=== PATIENT | female | born 1955 | race Caucasian/White ===

== ENCOUNTER 2018-06-06 19:48 | Emergency (ER) | payer OTHER ==
[~2018-06-06] VITALS: Ht 157.5 cm; Wt 77.1 kg
[2018-06-06 19:58] VITALS: BP_SYST 171
[2018-06-06] MEDS ORDERED: DIPH-TET-PERTUS Vaccine 0.5 ML VIAL (ADACEL) I.M. ONE (20:00)
[2018-06-06] MEDS ORDERED: HYDROcodone/ACETAMIN 7.5-325 MG TAB PO ONE (20:00)
[2018-06-06] MEDS ORDERED: BACITRACIN 1 GM OINT TP ONE (20:00)
--- NOTE | 2018-06-06 20:00 | NUR ---
Pt to ER bed 3 for evaluation. Side rails up.
--- NOTE | 2018-06-06 20:05 | NUR ---
Pt is awake and alert. Pt states "I was trying to do a headstand on a diving board and I fell down." Pain stated 08/18. Bilateral scrapes noted to legs. Denies any other symptoms. No signs of SOB or acute distress noted. Will continue to monitor.
--- NOTE | 2018-06-06 20:07 | NUR ---
KARIN DAVID AT BEDSIDE EXAMINING PATIENT.
[2018-06-06 21:26] VITALS: BP_SYST 164
--- NOTE | 2018-06-06 21:26 | NUR ---
Patient given written and verbal discharge instructions and verbalizes understanding. ER IP TECHNOLOGY TRANSACTIONS ATTORNEY JOANN discussed with patient the results and treatment provided. Patient in stable condition. ID arm band removed. Rx of Bacitracin Zinc, Tramadol, and Naproxen given. Patient educated on pain management and to follow up with PMD. Pain Scale 2/10. Opportunity for questions provided and answered. Medication side effect fact sheet provided.
== END 2018-06-06 21:26 | disposition home or self-care (01) ==
LOC: SED 19:48
DX: S93.602A Unspecified sprain of left foot, initial encounter (principal); S80.811A Abrasion, right lower leg, initial encounter; S70.312A Abrasion, left thigh, initial encounter; F41.9 Anxiety disorder, unspecified; J44.9 Chronic obstructive pulmonary disease, unspecified; R03.0 Elevated blood-pressure reading, without diagnosis of hypertension; Z87.891 Personal history of nicotine dependence; Z88.6 Allergy status to analgesic agent; W19.XXXA Unspecified fall, initial encounter; Y93.89 Activity, other specified; Y92.89 Other specified places as the place of occurrence of the external cause; Y99.8 Other external cause status
CPT/HCPCS: 90715; 99284

== ENCOUNTER 2019-07-07 | Emergency (ER) | payer OTHER ==
[~2019-07-07] VITALS: Ht 157.5 cm; Wt 77.1 kg
[2019-07-07 00:05] VITALS: BP_SYST 166
--- NOTE | 2019-07-07 00:05 | NUR ---
Patient triaged and placed in waiting room. VSS and patient appears in no acute distress at this time. Accompanied by FAMILY, awaiting available bed, and MD notified of need for MSE.
--- NOTE | 2019-07-07 00:52 | NUR ---
Patient to ER bed 4 to gown for evaluation. Side rails up. Report given to JOSUE PORTILLO(REGISTRY).
--- NOTE | 2019-07-07 01:35 | NUR ---
ER at bedside examining patient.
[2019-07-07] MEDS: DIPH-TET-PERTUS Vaccine 0.5 ML VIAL (ADACEL) I.M. ONE (01:58)
[2019-07-07] MEDS: ACETAMINOPHEN 500 MG TABLET PO ONE (02:00)
[2019-07-07] MEDS: ACETAMINOPHEN/CODEINE 300 MG-30 MG TABLET PO ONE (02:02)
--- NOTE | 2019-07-07 02:31 | NUR ---
Patient given written and verbal discharge instructions and verbalizes understanding. ER MD discussed with patient the results and treatment provided. Patient in stable condition. ID arm band removed. Rx of augmentin and tylenol w/ codeine given. Patient educated on pain management and to follow up with PMD. Pain Scale 4/10. Opportunity for questions provided and answered. Medication side effect fact sheet provided.
[2019-07-07 02:32] VITALS: BP_SYST 155
== END 2019-07-07 02:32 | disposition home or self-care (01) ==
LOC: SED
DX: S80.812A Abrasion, left lower leg, initial encounter (principal); F41.9 Anxiety disorder, unspecified; Z88.6 Allergy status to analgesic agent; W55.03XA Scratched by cat, initial encounter; Y93.89 Activity, other specified; Y92.098 Other place in other non-institutional residence as the place of occurrence of the external cause; Y99.8 Other external cause status
CPT/HCPCS: 90715; 99283

== ENCOUNTER 2021-11-09 06:40 | Emergency (ER) | payer OTHER, SELFPAY ==
[~2021-11-09] VITALS: Ht 162.6 cm; Wt 82.6 kg
[2021-11-09 07:05] VITALS: BP_SYST 151
--- NOTE | 2021-11-09 07:05 | NUR ---
PT TRIAGED AND THEN SENT TO TENT. REPORT GIVEN TO RANGEL
--- NOTE | 2021-11-09 07:37 | NUR ---
DR ANTONY OUT TO TENT FOR EVALUATION
--- NOTE | 2021-11-09 07:44 | NUR ---
ER at bedside examining patient.
--- NOTE | 2021-11-09 08:10 | NUR ---
pt. here c/o body aches, fever, and cough for 1 week, covid swab obtained as ordered, awaitting chest xray
--- NOTE | 2021-11-09 08:21 | NUR ---
portable chest xray being done
[2021-11-09] MEDS ORDERED: ONDANSETRON 4 MG ODT TAB PO ONE (08:45)
[2021-11-09] MEDS ORDERED: MORPHINE 4 MG INJ. 4 MG/ML VIAL IM ONE (08:45)
[2021-11-09 09:10] VITALS: BP_SYST 160
--- NOTE | 2021-11-09 09:10 | NUR ---
Patient given written and verbal discharge instructions and verbalizes understanding. ER Dr. Fan discussed with patient the results and treatment provided. Patient in stable condition. ID arm band removed. Patient educated on pain management and to follow up with PMD. Pain Scale 7. Opportunity for questions provided and answered.
== END 2021-11-09 09:10 | disposition home or self-care (01) ==
LOC: SED 06:40
DX: U07.1 COVID-19 (principal); J44.1 Chronic obstructive pulmonary disease with (acute) exacerbation; F41.9 Anxiety disorder, unspecified; Z88.6 Allergy status to analgesic agent
CPT/HCPCS: 71045; 87426; 96372; 99284; J2270; Q0162; 36415

== ENCOUNTER 2021-11-14 16:23 | Inpatient (IN) | payer OTHER, SELFPAY ==
[~2021-11-14] VITALS: Ht 162.6 cm; Wt 82.6 kg
[2021-11-14 16:25] VITALS: BP_SYST 141
--- NOTE | 2021-11-14 16:25 | NUR ---
PT BROUGHT IN BY [facility] AND CARE, TRIAGED AND WAITING IN AMBULANCE BAY FOR AVAILABLE ER BED
[2021-11-14] MEDS ORDERED: NACL 0.9% 1,000 ML IV ONE (17:15)
[2021-11-14] MEDS ORDERED: LevALBUTEROL HCL 1.25 MG/0.5 ML *CONC.* VIAL.NEB (XOPENEX CONC.) INH ONE (17:15)
--- NOTE | 2021-11-14 17:39 | NUR ---
PT PLACED IN ROOM 6, BIBA FOR SOB. PT TACHYPNIC AT 31 BREATHS /MIN... ON NRB @90%, USING ACCESORY MUSCLE USE, SITTING UPRIGHT IN BED. RT CALLED. PT ADMITS TO NOT BEING VACCINATED AND TESTING POSITIVE RECENTLY. DENIES ANY CP, JUST DIFFICULTY IN BREATHING. SKIN W/D/I. DENIES ANY FEVERS/CHILLS. COVID- SAFETY PRECAUTIONS IN PLACE.
--- NOTE | 2021-11-14 17:41 | NUR ---
DR YOON AT BEDSIDE FOR EXAM
--- NOTE | 2021-11-14 17:49 | NUR ---
RT AT BEDSIDE FOR TREATMENT AND ABGs
--- NOTE | 2021-11-14 18:02 | NUR ---
DTR CALLED AND I GAVE STATUS UPDATE, WILLCAL BACK IN 2 HOURS.
--- NOTE | 2021-11-14 18:48 | NUR ---
PT CONTINUES TO BE TACHYPNIC AT 24-30 BREATHS/MIN, TAKING NRB MASK OFF. PT INFORMED AGAIN TO NOT REMOVE NRB. TAKING OFF BLANKET AND FOLLOWING SAFETY PRECAUTIONS. DR GUAJARDO UPDATED.
[2021-11-14 18:49] LABS: BASOPHILS % (AUTO) 0.3 % (0.0-2.0); HEMATOCRIT 36.8 % (36-48); HEMOGLOBIN 12.4 g/dL (12.0-16.0); LYMPHOCYTES # (AUTO) 0.7 K/uL (1.0-5.5); LYMPHOCYTES % (AUTO) 9.5 % (20.5-51.5); MEAN CORPUSCULAR HEMOGLOBIN 28 pg (27-31); MEAN CORPUSCULAR HGB CONC 34 % (32-36); MEAN CORPUSCULAR VOLUME 83 fL (79.0-98.0); MONOCYTES # (AUTO) 0.6 K/uL (0.0-1.0); MONOCYTES % (AUTO) 8.1 % (1.7-9.3); NEUTROPHILS # (AUTO) 6.2 K/uL (1.8-7.7); NEUTROPHILS % (AUTO) 82.1 % (40.0-70.0); PLATELET COUNT (AUTO) 188 K/uL (130-430); RED BLOOD CELL COUNT(AUTO) 4.44 MIL/uL (4.2-6.2); RED CELL DISTRIBUTION WIDTH 16.3 % (9.0-15.0); WHITE BLOOD COUNT (AUTO) 7.6 K/uL (4.8-10.8)
[2021-11-14 18:54] LABS: CALCIUM 8.3 mg/dL (8.4-11.0); CREATININE 0.92 mg/dL (0.55-1.30); POTASSIUM 3.3 mmol/L (3.5-5.1)
[2021-11-14 19:06] LABS: PROTHROMBIN TIME 10.3 SECS (9.5-12.5)
--- NOTE | 2021-11-14 19:10 | NUR ---
Assumed care of patient at change of shift. Introduced self to patient who is currently on face mask 15 l for which pox noted at 84%.-88%. Patient patient noted to be restless and uncomfortabe. labored breathing air hunger noted upon movement. Positioned patient for comfort. placed in semi-becerra's position after linen was changed. Bed to low position sr up, continue to monitor.
--- NOTE | 2021-11-14 19:10 | NUR ---
Assumed care of patient at change of shift. Introduced self to patient, currently on Patient resting quietly. No acute distress noted. Vital signs within normal range.
[2021-11-14 19:14] LABS: ALBUMIN 2.6 g/dL (3.4-4.8); TOTAL BILIRUBIN 0.3 mg/dL (0.0-1.0)
--- NOTE | 2021-11-14 20:30 | NUR ---
patient pox noted to decrease to 79-84%, patient placed on high flow n/c at 40% along w/ face mask for which pox noted to increased to 93%. patient w/ tachypnea. Still restless and uncomfortable. Bed to low position sr up. patient noted at times to remove nrb mask.
[2021-11-14] MEDS ORDERED: ALBUTEROL SULFATE 0.083% 2.5 MG/3 ML VIAL.NEB INH PRN (21:45)
--- NOTE | 2021-11-14 21:50 | NUR ---
Patient w/ increased labored breathing w/ restlessness. MD Richards notified, patient to be transferred to ICU (upgraded) continue to monitor.
[2021-11-14] MEDS ORDERED: ENOXAPARIN SODIUM 30 MG/0.3 ML SYRINGE SUBCUT ONE (22:00)
[2021-11-14] MEDS ORDERED: POTASSIUM CHLORIDE 10 MEQ TAB.PRT.SR PO ONE (22:00)
--- NOTE | 2021-11-14 22:45 | NUR ---
# 20 gauge angiocath placed to right forearm. Use of asceptic technique. Opsite placed over site. Blood return noted. Flushed with 10 cc of normal saline. No evidence of infiltration noted. Patient tolerated well.
[2021-11-14] MEDS ORDERED: cefTRIAXone 2 GM VIAL ONE (22:47)
[2021-11-14] MEDS ORDERED: AZITHROMYCIN 500 MG/VIAL (ZITHROMAX) IV ONE (22:47)
[2021-11-14] MEDS: DEXAMETHASONE SOD PHOSPHATE 10 MG/ML VIAL IVP SCH (22:50)
--- NOTE | 2021-11-14 22:50 | NUR ---
Medicated w/ kcl 30 meq po per MD orders. IVF infusing with no s/s of infiltration at this time. Will cont to monitor will observe for any adverse reaction. bed to low position sr up.
[2021-11-14] MEDS ORDERED: POTASSIUM CHLORIDE 10 MEQ TAB.PRT.SR ONE (23:06)
[2021-11-14] MEDS: AZITHROMYCIN 500 MG in NS 250 ML IV SCH (23:45)
--- NOTE | 2021-11-15 00:30 | NUR ---
# 16 FR Esquivel catheter with use of sterile technique. Immediate return of 300 cc clear yellow urine noted. Bedside drainage bag placed below level of bladder. Pt tolerated procedure. Patient unable to toilet self, noted to have distended bladder.
[2021-11-15] MEDS ORDERED: KETAMINE 30 MG/3 ML SYRINGE 30 MG in NS 100 ML IV ONE (01:00)
[2021-11-15] MEDS ORDERED: KETAMINE 30 MG/3 ML SYRINGE ONE ×2 (01:08→10:40)
--- NOTE | 2021-11-15 01:15 | NUR ---
medicated w/ 30mg of ketamine per MD order to calm patient down 2nd to increased agitation. patient to have bipap placed..
--- NOTE | 2021-11-15 01:43 | NUR ---
bipap placed by RT. patient to be medicated w/ ativan ivp.
[2021-11-15] MEDS ORDERED: LORazepam 2 MG/ML VIAL IVP ONE ×3 (01:45→15:15)
--- NOTE | 2021-11-15 01:57 | NUR ---
bipap I/E: 22/8 fio2 100%, patient medicated w/ ativan 1mg as ordered, will observe for any adverse reaction. Bed to low position sr up. patient still breathing heavily but is tolerating bipap. restless and agitation decreased.
[2021-11-15 02:04] VITALS: BP_SYST 145
--- NOTE | 2021-11-15 03:05 | NUR ---
patient asleep resting comfortably. pox noted at 89-91% on bipap fio2 100%, decreased agitation and restlessness. continue w/ current plan. bed to low position sr up, continue to monitor.
--- NOTE | 2021-11-15 05:03 | NUR ---
Patient resting quietly. No acute distress noted. Vital signs within normal range. no change from previous assessment, pox noted 90-92% on bipap fio2 100. Patient w/ no increased agitation. continue to monitor.
[2021-11-15] MEDS ORDERED: LORazepam 2 MG/ML VIAL ONE ×2 (06:00→15:10)
--- NOTE | 2021-11-15 06:03 | NUR ---
patient noted to get slight agitated and restless, for which pox noted to decrease as low as 72% . medicated w/ 1mg of ativan per MD order. still on bipap w/ fio2 100%. continue to monitor.
--- NOTE | 2021-11-15 07:20 | NUR ---
Report received from Raheem PORTILLO to assume care of patient
--- NOTE | 2021-11-15 07:30 | NUR ---
Made contact with patient. Patient very restless and disoriented. Low saturation noted intermittently with even slightest exertion. Patient not able to give information or even follow simple commands due to hypoxia. This RN to monitor very closely.
--- NOTE | 2021-11-15 07:45 | NUR ---
RT paged to room to assess patient. She is on 100% O2 but continues to be hypoxic. Will continue to monitor closely.
--- NOTE | 2021-11-15 07:50 | NUR ---
RT changed patient's mask to Bipap. SpO2 now 95-96%.
[2021-11-15] MEDS: ENOXAPARIN SODIUM 30 MG/0.3 ML SYRINGE SUBCUT SCH ×2 (09:10→21:46)
--- NOTE | 2021-11-15 09:15 | NUR ---
Medication reconciliation completed with information provided by meds at bedside. Any prior medication reconciliation on file was reviewed and corrected.
[2021-11-15] MEDS ORDERED: CARI350T27 PO (09:26)
[2021-11-15] MEDS ORDERED: OXYC10TA56 PO (09:26)
[2021-11-15] MEDS ORDERED: ESCI20TA PO (09:26)
--- NOTE | 2021-11-15 10:15 | NUR ---
Patient removed Bipap mask. RT paged to room, as patient continues to be hypoxic and tachypneic despite 100% O2. Patient also remains extremely restless.
--- NOTE | 2021-11-15 10:24 | NUR ---
Dr Rojas paged to ER re intubation. Respiratory condition not resolving.
--- NOTE | 2021-11-15 10:30 | NUR ---
Per Crystal, "the ER doctor has to handle" patient care re intubation and sedation. Dr Sotelo made aware.
[2021-11-15] MEDS ORDERED: KETAMINE 30 MG/3 ML SYRINGE IVP ONE (10:45)
--- NOTE | 2021-11-15 11:35 | NUR ---
Patient finally resting in bed; in no acute distress. Patient remains on 100% O2 and SpO2 has improved as patient is now calmer. VSS. Patient continues to await ICU bed. Will continue to monitor.
[2021-11-15] MEDS: HALOPERIDOL LACTATE 5 MG/ML VIAL IVP PRN (12:22)
--- NOTE | 2021-11-15 13:18 | NUR ---
Despite PRN sedation medication, patient continues to be very restless in bed and tachypneic on 100% O2. Dr Sotelo aware. No new orders received.
--- NOTE | 2021-11-15 14:41 | NUR ---
Patient remains hypoxic on 100% O2. O2 sats 87-90%. Patient remains tachypneic and restless at moments. Dr Sotelo aware. No new orders received.
[2021-11-15] MEDS ORDERED: DEXMEDETOMIDINE HCL 200 MCG in NS 48 ML IV PRN (15:15)
[2021-11-15] MEDS ORDERED: PROPOFOL DRIP 100 ML IV ONE (15:39)
[2021-11-15 15:40] VITALS: BP_SYST 153
--- NOTE | 2021-11-15 15:40 | NUR ---
Patient intubated per Dr Geiger. RT at bedside. 24 cm at lip
--- NOTE | 2021-11-15 16:10 | NUR ---
CXR being done at bedside
--- NOTE | 2021-11-15 16:10 | NUR ---
CONSULTS: CONSULTS CALLED FOR DR GRUBER [phone] PAGER:[phone] CONSULTS CALLED FOR DR CROSS [phone] SPOKE WITH BAILEE
--- NOTE | 2021-11-15 16:15 | NUR ---
Propofol drip initially started at 5 mcg/kg/min. Increased gradually to 35 mcg/kg/min as patient continued fighting vent. BP stable.
[2021-11-15] MEDS ORDERED: SUCCINYLCHOLINE CHLORIDE 20 MG/ML(QUELICIN) IVP ONE ×2 (16:30→17:26)
[2021-11-15] MEDS ORDERED: ETOMIDATE 20 MG/ 10 ML VIAL (AMIDATE) IVP ONE ×2 (16:30→17:26)
[2021-11-15] MEDS: PROPOFOL DRIP 100 ML IV PRN ×2 (16:39→20:27)
--- NOTE | 2021-11-15 16:49 | NUR ---
Propofol drip increased to 50 mcg/kg/min due to patient continuing to fight vent and attempt to pull ETT. Dr Juanjo peterson.
--- NOTE | 2021-11-15 17:18 | NUR ---
Propofol decreased to 40mcg/kg/min. BP 122/62.
--- NOTE | 2021-11-15 17:30 | NUR ---
RT at bedside to patel MORA
--- NOTE | 2021-11-15 17:55 | NUR ---
Patient resting in bed; in no acute distress. VSS; in oracle erp architect. Patient continues to await extrusion former consult; Dr Rojas has been paged multiple times with no call back received. For now, patient is maintaining on current regimen and will continue to be monitored closely. Pt also continues to await ICU bed.
[2021-11-15] MEDS ORDERED: TOCILIZUMAB 800 MG in NS 100 ML IV ONE (18:00)
--- NOTE | 2021-11-15 18:03 | NUR ---
Spoke with Dr Horton who referred me to Dr Tse, or medical legal investigator, or some other doctor. Will continue to monitor patient closely. Dr Ortiz to bedside to assess pt.
--- NOTE | 2021-11-15 18:34 | NUR ---
Established Dr Tse as point of contact for any further orders needed.
--- NOTE | 2021-11-15 19:12 | NUR ---
Report given to Pat PORTILLO to assume care of patient
--- NOTE | 2021-11-15 19:23 | NUR ---
RECEIVED REPORT FROM MAGO PORTILLO
--- NOTE | 2021-11-15 20:25 | NUR ---
NEW PORPOFAL HUNG. PT RAISING HANDS AND MOVING, APPEARS SOMEWHAT AGITATED, PLACE PROPOFAL TO 4.2 MCG. WILL CONTINUE TO MONITOR
--- NOTE | 2021-11-15 20:45 | NUR ---
PT RESTING, NOT STRUGGLING TO MOVE ARMS OR LEGS IN BED. REMAINS ON BEDSIDE MONITOR AND VENT. WILL CONTINUE TO MONITOR PT
[2021-11-15] MEDS: ASCORBIC ACID 500 MG TABLET PO SCH (21:00)
[2021-11-15] MEDS ORDERED: AZITHROMYCIN 500 MG/VIAL (ZITHROMAX) IV ONE (21:20)
[2021-11-15] MEDS ORDERED: cefTRIAXone 2 GM VIAL ONE (21:20)
[2021-11-15 21:33] LABS: CKMB RELATIVE INDEX 1.5 (0.0-2.9)
[2021-11-15] MEDS ORDERED: DEXAMETHASONE SOD PHOSPHATE 10 MG/ML VIAL ONE (21:54)
[2021-11-15] MEDS: DEXAMETHASONE SOD PHOSPHATE 10 MG/ML VIAL IVP SCH (21:54)
[2021-11-15] MEDS: AZITHROMYCIN 500 MG in NS 250 ML IV SCH (22:31)
--- NOTE | 2021-11-15 22:33 | NUR ---
PT HAS 2 PO MEDS ORDERED, UNABLE TO ADMINISTER DUE TO PT BEING INTUBATED, NO NG TUBE FOR MEDS.
[2021-11-15 23:00] VITALS: BP_SYST 118
[2021-11-16] VITALS (17 sets, daily range): BP systolic 119–159
[2021-11-16] MEDS ORDERED: KETAMINE 30 MG/3 ML SYRINGE ONE (00:22)
--- NOTE | 2021-11-16 00:26 | NUR ---
PT EXTREMELY AGITATED AND ATTEMPTING TO CRAWL OUT OF BED, ER MD AWARE, NEW ORDER RECEIVED AND CARRIED OUT. PT REPOSITIONED FOR COMFORT IN BED. REMAINS ON MONITOR. VENT HAS BEEN BEEPING, RESPIRATORY WAS AT BEDSIDE AND SUCTIONED PT, VENT CONTINUES TO BEEP. CALLED RESPIRATORY TO RECHECK
--- NOTE | 2021-11-16 01:03 | NUR ---
PT IS SLEEPING, REMANS ON BEDSIDE MONITOR. RESPIRATIONS REGULAR EVEN, AND UNLABORED.
[2021-11-16] MEDS: PROPOFOL DRIP 100 ML IV PRN ×4 (01:56→22:22)
--- NOTE | 2021-11-16 02:35 | NUR ---
PT STARTING TO BECOME AGITATED AND MOVING AROUND, ER MD AWARE WAITING FOR NEW ORDERS AT THIS TIME.
[2021-11-16] MEDS ORDERED: MIDAZOLAM HCL 5 MG/5 ML VIAL IVP ONE (02:45)
--- NOTE | 2021-11-16 02:45 | NUR ---
RECEIVED VERSED IVP TO HELP CALM PT, PER ER MD ORDERS
--- NOTE | 2021-11-16 02:55 | NUR ---
PT CONTINUES TO MOVE LEGS AND ARMS, PULLED OUT IV TO RIGHT FOREARM, STILL HAS IV ACESS TO LAC. PROPOFAL CONTINUES, REMAINS ON MONITOR, RECEIVED NEW ORDERS
[2021-11-16] MEDS: CHOLECALCIFEROL (VITAMIN D3) 5,000 UNIT TABLET PO SCH (03:05)
[2021-11-16] MEDS: HALOPERIDOL LACTATE 5 MG/ML VIAL IVP PRN (03:10)
--- NOTE | 2021-11-16 03:10 | NUR ---
MEDICATED WITH HALDOL
[2021-11-16] MEDS ORDERED: MIDAZOLAM HCL 5 MG/5 ML VIAL ONE (03:20)
[2021-11-16] MEDS ORDERED: MIDAZOLAM IN NACL,ISO-OSMOT/PF 100 ML IV ONE (03:31)
[2021-11-16 03:45] LABS: CKMB RELATIVE INDEX 1.5 (0.0-2.9); CREATINE KINASE MB 5.6 ng/mL (0-3.6)
--- NOTE | 2021-11-16 07:16 | NUR ---
report given to marry vance
--- NOTE | 2021-11-16 07:18 | NUR ---
cole vance gave report to marry vance
[2021-11-16 07:24] LABS: BASOPHILS % (AUTO) 0.2 % (0.0-2.0); HEMATOCRIT 35.3 % (36-48); HEMOGLOBIN 11.4 g/dL (12.0-16.0); LYMPHOCYTES # (AUTO) 0.6 K/uL (1.0-5.5); LYMPHOCYTES % (AUTO) 7.2 % (20.5-51.5); MEAN CORPUSCULAR HEMOGLOBIN 28 pg (27-31); MEAN CORPUSCULAR HGB CONC 32 % (32-36); MEAN CORPUSCULAR VOLUME 85 fL (79.0-98.0); MONOCYTES # (AUTO) 0.8 K/uL (0.0-1.0); NEUTROPHILS # (AUTO) 6.6 K/uL (1.8-7.7); NEUTROPHILS % (AUTO) 82.6 % (40.0-70.0); PLATELET COUNT (AUTO) 189 K/uL (130-430); RED BLOOD CELL COUNT(AUTO) 4.14 MIL/uL (4.2-6.2); RED CELL DISTRIBUTION WIDTH 16.2 % (9.0-15.0); WHITE BLOOD COUNT (AUTO) 7.9 K/uL (4.8-10.8)
--- NOTE | 2021-11-16 07:38 | NUR ---
66 years old female intubated dx with covid, vital stable no acute resp distress, resting in gurney iv patent will continue to monitor closely.
[2021-11-16 08:34] LABS: ALBUMIN 2.4 g/dL (3.4-4.8); CALCIUM 8.1 mg/dL (8.4-11.0); CREATININE 0.7 mg/dL (0.55-1.30); POTASSIUM 4.4 mmol/L (3.5-5.1); THYROID STIMULATING HORMONE 0.17 uIu/mL (0.36-3.74); TOTAL BILIRUBIN 0.4 mg/dL (0.0-1.0)
[2021-11-16] MEDS: ASCORBIC ACID 500 MG TABLET PO SCH ×2 (09:00→20:27)
[2021-11-16 10:06] LABS: C-REACTIVE PROTEIN QUANT 5.4 mg/dL (0-0.5)
[2021-11-16] MEDS: ENOXAPARIN SODIUM 30 MG/0.3 ML SYRINGE SUBCUT SCH ×2 (10:35→21:38)
--- NOTE | 2021-11-16 10:50 | NUR ---
patient reassess, no acute resp distress, vital stable will continue to monitor.
--- NOTE | 2021-11-16 11:44 | NUR ---
16 fr SALEM SUMP INSERTED TOLERATED WELL.
[2021-11-16 12:08] LABS: CKMB RELATIVE INDEX 1.5 (0.0-2.9); CREATINE KINASE MB 5.4 ng/mL (0-3.6)
--- NOTE | 2021-11-16 12:49 | NUR ---
PATIENT RESTING NO ACUTE CHANGES WILL CONTINUE TO MONITOR.
--- NOTE | 2021-11-16 13:28 | NUR ---
Patient will be admitted to care of LINDSEY KILGORE. Admitted to unit. Will go to room . Belongings list completed. Complete and up to date summary report printed. SBAR report to be given at bedside with opportunity for questions.
--- NOTE | 2021-11-16 13:38 | NUR ---
VERSED RUNNING AT 2MG/HR WHEN PATIENT RECEIVED FROM ER NURSE,
--- NOTE | 2021-11-16 13:58 | NUR ---
AT 1351 PT HR DROPPED TO 41, ATROPINE PLACED AT BEDSIDE
--- NOTE | 2021-11-16 14:00 | NUR ---
PT CAME FROM ER WITH BILATERAL WRIST RESTRAINTS, PT WILL REACH FOR LINES AND ET TUBE, PT IMPULSIVE, WITH AMS
--- NOTE | 2021-11-16 14:21 | NUR ---
HR DOWN TO 39, VERSED STOPPED, ATROPINE AT BEDSIDE
--- NOTE | 2021-11-16 16:00 | NUR ---
PT HAS BILATERAL WRIST RESTRAINTS, PT WILL REACH FOR LINES AND ET TUBE, PT IMPULSIVE WITH AMS
--- NOTE | 2021-11-16 16:58 | NUR ---
Dietitian Recommendations * Vital AF 1.2 at 45 ml/hr (goal rate), Free Water Flush: 200 ml Q6h via OGT Provides (w/ current propofol rate): 1688 kcal/day, 81 gm protein/day, and 1676 ml free water/day Meets: 98% of estimated caloric needs and 98% of lower end of estimated protein needs * VIT C/VIT D3/zinc per COVID protocol LP, RD Please refer to Nutrition Assessment for details. Addendum: 11/16/21 at [address] Amended: Links added.
--- NOTE | 2021-11-16 18:00 | NUR ---
1800, PT IN BILATERAL WRIST RESTRAINTS, PT WILL REACH FOR ET TUBE AND LINES, PT IMPULSIVE WITH AMS
[2021-11-16] MEDS: AZITHROMYCIN 500 MG in NS 250 ML IV SCH (20:29)
[2021-11-16] MEDS: DEXAMETHASONE SOD PHOSPHATE 10 MG/ML VIAL IVP SCH (21:38)
[2021-11-17] VITALS (28 sets, daily range): BP systolic 114–167
[2021-11-17] MEDS: PROPOFOL DRIP 100 ML IV PRN ×3 (05:08→17:05)
[2021-11-17] MEDS: MIDAZOLAM IN NACL,ISO-OSMOT/PF 100 ML IV PRN ×2 (05:09→21:30)
--- NOTE | 2021-11-17 06:28 | NUR ---
ALL CARES DONE, CHG BATH DONE AND COMPLETE LINEN CHANGED,,REMAINS SEDATED WITH PROPOFOL AT 35 MCG AND VERSED AT 6 MG. NPO NAVARRO JUST ADEQUATE OUPUT.
[2021-11-17 07:05] LABS: BASOPHILS % (AUTO) 0.2 % (0.0-2.0); HEMATOCRIT 32.1 % (36-48); HEMOGLOBIN 10.5 g/dL (12.0-16.0); LYMPHOCYTES # (AUTO) 0.5 K/uL (1.0-5.5); MEAN CORPUSCULAR HEMOGLOBIN 28 pg (27-31); MEAN CORPUSCULAR HGB CONC 33 % (32-36); MEAN CORPUSCULAR VOLUME 85 fL (79.0-98.0); MONOCYTES # (AUTO) 0.6 K/uL (0.0-1.0); MONOCYTES % (AUTO) 10.4 % (1.7-9.3); NEUTROPHILS # (AUTO) 4.7 K/uL (1.8-7.7); NEUTROPHILS % (AUTO) 81.4 % (40.0-70.0); PLATELET COUNT (AUTO) 186 K/uL (130-430); RED BLOOD CELL COUNT(AUTO) 3.77 MIL/uL (4.2-6.2); RED CELL DISTRIBUTION WIDTH 16.5 % (9.0-15.0); WHITE BLOOD COUNT (AUTO) 5.8 K/uL (4.8-10.8)
[2021-11-17 07:26] LABS: ALBUMIN 2.1 g/dL (3.4-4.8); CREATININE 0.62 mg/dL (0.55-1.30); TOTAL BILIRUBIN 0.2 mg/dL (0.0-1.0)
[2021-11-17 08:05] LABS: ERYTHROCYTE SEDIMENTATION RATE 32 MM/HR (0-20)
--- NOTE | 2021-11-17 08:05 | NUR ---
RT NOTES FIO2 to 0.70 per titration order, Dr Payan rounding, changed Rate to 26.
[2021-11-17 09:03] LABS: C-REACTIVE PROTEIN QUANT 1.3 mg/dL (0-0.5)
[2021-11-17] MEDS: ENOXAPARIN SODIUM 30 MG/0.3 ML SYRINGE SUBCUT SCH ×2 (09:19→21:26)
[2021-11-17] MEDS: CHOLECALCIFEROL (VITAMIN D3) 5,000 UNIT TABLET PO SCH (09:20)
[2021-11-17] MEDS: ASCORBIC ACID 500 MG TABLET PO SCH ×2 (09:20→21:25)
[2021-11-17] MEDS ORDERED: THEOPHYLLINE ANHYDROUS 200 MG CAP.ER.24H PO ONE (10:00)
--- NOTE | 2021-11-17 11:48 | NUR ---
RT NOTES FIO2 to 0.60 per titration order. will monitor pt. will notify rn
--- NOTE | 2021-11-17 12:10 | NUR ---
RT NOTES Current sat 94%, tolerating 60% FIO2
[2021-11-17 12:39] LABS: PROTHROMBIN TIME 10.9 SECS (9.5-12.5)
--- NOTE | 2021-11-17 18:49 | NUR ---
pt recieved sedated but following commands/pt has progressed to 60% fio2 from 100, and still saturating well on 60% pt in zero distress/pt may need to be started on accuchecks, blood sugar running high at times//no fever, bart at times but asymptomatic//mw
[2021-11-17] MEDS: AZITHROMYCIN 500 MG in NS 250 ML IV SCH (21:28)
[2021-11-17] MEDS: THEOPHYLLINE ANHYDROUS 200 MG CAP.ER.24H PO SCH (21:30)
[2021-11-17] MEDS: DEXAMETHASONE SOD PHOSPHATE 10 MG/ML VIAL IVP SCH (21:31)
[2021-11-18] VITALS (26 sets, daily range): BP systolic 86–151
[2021-11-18] MEDS: PROPOFOL DRIP 100 ML IV PRN ×4 (00:33→18:38)
[2021-11-18 06:31] LABS: HEMATOCRIT 32.6 % (36-48); HEMOGLOBIN 10.9 g/dL (12.0-16.0); MEAN CORPUSCULAR HEMOGLOBIN 28 pg (27-31); MEAN CORPUSCULAR HGB CONC 34 % (32-36); MEAN CORPUSCULAR VOLUME 84 fL (79.0-98.0); PLATELET COUNT (AUTO) 201 K/uL (130-430); RED BLOOD CELL COUNT(AUTO) 3.89 MIL/uL (4.2-6.2); RED CELL DISTRIBUTION WIDTH 16.1 % (9.0-15.0); WHITE BLOOD COUNT (AUTO) 6.5 K/uL (4.8-10.8)
[2021-11-18 06:40] LABS: ALBUMIN 2.1 g/dL (3.4-4.8); C-REACTIVE PROTEIN QUANT 0.3 mg/dL (0-0.5); CALCIUM 7.9 mg/dL (8.4-11.0); CREATININE 0.8 mg/dL (0.55-1.30); TOTAL BILIRUBIN 0.3 mg/dL (0.0-1.0)
--- NOTE | 2021-11-18 07:04 | NUR ---
ALL CARES DONE REMAINS ON VENT AT 70% HAD DESATURATION AT 0300 TO 89% INCREASED SEDATION RR-41 BP STABLE AFEBRILE. DIPRIVAN AT 40 MCG AND VERSED AT 8MG. TOLERTING TUBE FEEDING.
--- NOTE | 2021-11-18 07:20 | NUR ---
INITIAL SHIFT REPORT RECEIVED FROM NIGHT RN FOR CONTINUATION OF CARE
[2021-11-18 08:08] LABS: ERYTHROCYTE SEDIMENTATION RATE 21 MM/HR (0-20)
[2021-11-18] MEDS: CHOLECALCIFEROL (VITAMIN D3) 5,000 UNIT TABLET PO SCH (08:40)
[2021-11-18] MEDS: ASCORBIC ACID 500 MG TABLET PO SCH ×2 (08:40→21:59)
[2021-11-18] MEDS: MIDAZOLAM IN NACL,ISO-OSMOT/PF 100 ML IV PRN (08:48)
[2021-11-18] MEDS: THEOPHYLLINE ANHYDROUS 200 MG CAP.ER.24H PO SCH ×2 (08:51→21:59)
[2021-11-18] MEDS ORDERED: NALOXONE HCL 0.4 MG/ML AMP (NARCAN) IVP PRN (09:00)
[2021-11-18] MEDS ORDERED: ENOXAPARIN SODIUM 30 MG/0.3 ML SYRINGE SUBCUT ONE (09:00)
[2021-11-18] MEDS ORDERED: FUROSEMIDE 20 MG/2 ML VIAL IVP ONE (09:00)
[2021-11-18 10:37] LABS: BAND % (MANUAL) 6 % (0-6); BASOPHILS % (MANUAL) 0 % (0-2); EOSINOPHILS % (MANUAL) 0 % (0-7); LYMPHOCYTES % (MANUAL) 4 % (20-46); METAMYELOCYTES % 4 % (0-0); MONOCYTES % (MANUAL) 8 % (0-11); MYELOCYTES % 4 % (0-0)
[2021-11-18] MEDS: MORPHINE SULFATE IN 0.9 % NACL 100 ML IV PRN (11:44)
--- NOTE | 2021-11-18 15:40 | NUR ---
RN NOTES SPOKE TO DR. THOMAS RE: LOW BP, WITH ORDERS CARRIED OUT.
[2021-11-18] MEDS ORDERED: *HEPARIN PER PHARMACY XX ONE (18:00)
--- NOTE | 2021-11-18 18:34 | NUR ---
UPDATED DISCONTINUED LOVENOX 40 MG PER MD CHAPIN (ID SPECIALIST) & DOCTOR (DARI) WILL ADD HEPARIN DUE TO ELEVATE D DIMER (PER MD CHAPIN REQUESTED)
--- NOTE | 2021-11-18 19:31 | NUR ---
NURSING CARES ALL CARES RENDERED & PROVIDED TO PT WELL REPOSITIONS. PT TOLERATED WELL
--- NOTE | 2021-11-18 19:32 | NUR ---
ENDORSEMENT END OF SHIFT REPORT GIVEN TO NIGHT RN FOR CONTINUATION OF CARES
[2021-11-18] MEDS ORDERED: HEPARIN SODIUM,PORCINE 2000 UNITS/0.4 ML BOLUS IVP PRN (20:00)
[2021-11-18] MEDS ORDERED: ENOXAPARIN SODIUM 30 MG/0.3 ML SYRINGE SUBCUT SCH (21:00)
[2021-11-18] MEDS ORDERED: HEPARIN 25,000 UNITS/D5W 250ML 250 ML IV ONE (21:01)
[2021-11-18] MEDS ORDERED: HEPARIN SODIUM, PORCINE 10,000 UNITS/ 10 ML VIAL ONE (21:15)
--- NOTE | 2021-11-18 21:30 | NUR ---
HEPARIN GTT STARTED AT 1200 UNITS BOLUS IV 3000 UNITS GIVEN FOR PTT 24.3 FOR REPEAT PTT AT 0400 AWAITING RESULTS.
[2021-11-18] MEDS: AZITHROMYCIN 500 MG in NS 250 ML IV SCH (22:00)
[2021-11-18] MEDS: DEXAMETHASONE SOD PHOSPHATE 10 MG/ML VIAL IVP SCH (22:01)
[2021-11-18] MEDS: HEPARIN 25,000 UNITS in 250 ML PREMIX IV PRN (22:02)
[2021-11-18] MEDS: HEPARIN SODIUM,PORCINE 3000 UNITS/0.6 ML BOLUS IVP PRN (22:03)
[2021-11-19] VITALS (27 sets, daily range): BP systolic 84–143
--- NOTE | 2021-11-19 02:30 | NUR ---
BED BATH DONE, LINEN CHANGED, HAD BM X1 , RASS-2 AWAKEN SO QUICK AND TRYING TO GET UP AND GETTING RESTLES AND TACHYPNEIC SEDATION INCREASE AND INCREASE FIO2-70%
[2021-11-19] MEDS: PROPOFOL DRIP 100 ML IV PRN ×4 (04:34→21:27)
--- NOTE | 2021-11-19 05:00 | NUR ---
HAD ANOTHER EPISODE OF TACHYPNIA AND DESATURATION AT DIRECTOR SANITATION [employer]UREAU VERSED GTT RE STARTED VSS, AFEBRILE SATS CAME BACK UP TO 93%. REMAINS ON SAME VENT SETTINGS.
[2021-11-19 05:57] LABS: ALANINE AMINOTRANSFERASE 29 U/L (12-78); ALBUMIN 2.2 g/dL (3.4-4.8); ANION GAP 10 (5-15); ASPARTATE AMINOTRANSFERASE 56 U/L (10-37); C-REACTIVE PROTEIN QUANT < 0.2 mg/dL (0-0.5); CALCIUM 7.8 mg/dL (8.4-11.0); CHLORIDE 109 mmol/L (98-107); CREATININE 0.71 mg/dL (0.55-1.30); GLUCOSE 340 mg/dL (70-99); SODIUM SERUM 142 mmol/L (136-145); TOTAL BILIRUBIN 0.3 mg/dL (0.0-1.0); UREA NITROGEN, BLOOD 31 mg/dL (8-21)
[2021-11-19 06:55] LABS: GFR AFRICAN AMERICAN 105 mL/min (>90); POTASSIUM 5.2 mmol/L (3.5-5.1)
--- NOTE | 2021-11-19 06:59 | NUR ---
0630 PTT-58.6 ,HEPARIN DOSE NO CHANGES REMAINS ON 1200 UNITS.
--- NOTE | 2021-11-19 07:07 | NUR ---
INITIAL SHIFT REPORT RECEIVED FROM NIGHT RN FOR CONTINUATION OF CARE
[2021-11-19] MEDS ORDERED: SODIUM POLYSTYRENE SULFONATE 15 GM/60 ML UDBTL PO ONE (08:00)
[2021-11-19] MEDS: CHOLECALCIFEROL (VITAMIN D3) 5,000 UNIT TABLET PO SCH (09:23)
[2021-11-19] MEDS: ASCORBIC ACID 500 MG TABLET PO SCH ×2 (09:24→21:25)
[2021-11-19] MEDS: FUROSEMIDE 20 MG/2 ML VIAL IVP SCH (09:24)
[2021-11-19] MEDS: THEOPHYLLINE ANHYDROUS 200 MG CAP.ER.24H PO SCH ×2 (09:25→21:25)
[2021-11-19] MEDS: DOCUSATE SODIUM 100 MG/10 ML UDC PO SCH (09:29)
--- NOTE | 2021-11-19 10:45 | NUR ---
LAB CALLED LAB TO REMIND THAT PT'S PTT NEED TO BE DONE & WAS DUE AT 10 AM. LAB SAID THAT THEY ARE BEHIND
[2021-11-19] MEDS: MORPHINE SULFATE IN 0.9 % NACL 100 ML IV PRN (11:16)
--- NOTE | 2021-11-19 11:25 | NUR ---
Nutrition F/U Admitting Diagnosis: COVID, pneumonia Medical History Comment: COVID-19 per physician notes 11/19 MD notes: Sepsis, COPD Pt also found w/ sepsis per physician notes SARS-CoV-2 Ag (Rapid) Positive 11/14 Subjective Information: Pt remains in ICU, sedated on vent. RD s/w pt's primary RN who reported that EN was off for medication administration this am and d/t GRV >100ml. RD discussed policy re: GRV and that pt's BG have been trending up and pt needs insulin coverage. Per EMR review, BM 11/19 x2. Pt was intubated on 11/15, CXR on 11/18 showed no changes in bilateral infiltrates. Fred scale: 14, no skin issues. Current EN provides adequate nutrition and remains appropriate. Current Diet Order/Nutrition Support: Vital AF 1.2 at 45ml/hr (goal); FWF 200ml Q6H via OGT x 3 days Pertinent Medications: propofol at 9.906 ml/hr (261 kcal/day), decadron, Lasix, Haldol, Heparin, Remdesivir, VIT C, Zinc, VIT C. Pertinent Labs 11/19 Na 142, K 5.2H, BG 340 H, BUN 31H, Cre 0.71 Height (Feet) 5 feet Height (Inches) 4.00 inches Weight (Pounds) 182 pounds Weight (Calculated Kilograms) 82.319493 kilograms Patient Weight 82.554 kg Body Mass Index 31.24 kg/m2 %IBW 152 [place]/Adjusted Body Weight 120#/55 kg. 136#/62 kg Weight Status Obese Estimated Energy Expenditure (kcals/day) 1719 (PSU 2009 d/t criticall illness on vent; Ve: 12.1; Tmax: 36.2'C) Estimated Protein Required (g/day) 83-110 (1.5-2 gm/kg IBW d/t obesity, sepsis) Estimated Fluid Required (l/day) 1.7 (1 ml/kcal/day for maintenance) Problem/Etiology/Signs/Symptoms Increased nutritional needs R/T metabolic demands AEB estimated nutritional requirements for sepsis. (*ongoing) Expected Outcomes/Goals - Monitor EN tolerance and intake w/ goal of pt meeting >80% of estimated nutritional needs, labs trending WNL, normal GI function, and skin integrity/wt maintenance Dietitian Recommendations * Vital AF 1.2 at 45 ml/hr (goal rate), Free Water Flush: 200 ml Q6h via OGT Provides (w/ current propofol rate): 1557 kcal/day, 81 gm protein/day, and 1676 ml free water/day Meets: 90% of estimated caloric needs and 98% of lower end of estimated protein needs * VIT C/VIT D3/zinc per COVID protocol * Recommend: add insulin coverage. Follow Up High Risk: F/U in 2-3days
--- NOTE | 2021-11-19 11:32 | NUR ---
Dietitian Recommendations * Vital AF 1.2 at 45 ml/hr (goal rate), Free Water Flush: 200 ml Q6h via OGT Provides (w/ current propofol rate): 1557 kcal/day, 81 gm protein/day, and 1676 ml free water/day Meets: 90% of estimated caloric needs and 98% of lower end of estimated protein needs * VIT C/VIT D3/zinc per COVID protocol * Recommend: add insulin coverage. Please see Nutrition F/U note BERENICE, HIPOLITO
[2021-11-19] MEDS: HEPARIN 25,000 UNITS in 250 ML PREMIX IV PRN (17:18)
--- NOTE | 2021-11-19 19:00 | NUR ---
RECD REPORT FROM RADHA RN, NOT FULLY SEDATED PATIENT IS AWAKE AND TACHYPNEIC ON VERSED 2 MG, MORPHINE 2 MG, AND PROPOFOL AT 10 MCG/KG,SATS-77% BP BORDERLINE, HEPARIN GTT INFUSING ON A LINE OUT OF VEIN ALREADY HEPARIN LEAKING ON SITE. PATIENT LYING ON POOP.
--- NOTE | 2021-11-19 19:49 | NUR ---
ENDORSEMENT END OF SHIFT REPORT GIVEN TO NIGHT RN FOR CONTINUATION OF CARES
--- NOTE | 2021-11-19 20:30 | NUR ---
INSERTE PIV LINE AT LT FA G20 HEPARIN GTT INFUSING SAME RATE AWAITING FOR APTT DRAWN
[2021-11-19] MEDS: SENNA 8.8 MG/5 ML UDC NG SCH (21:00)
[2021-11-19] MEDS: DEXAMETHASONE SOD PHOSPHATE 10 MG/ML VIAL IVP SCH (21:26)
[2021-11-19] MEDS: NOREPINEPHRINE BITARTRATE 4 MG in D5W 246 ML IV PRN (21:29)
--- NOTE | 2021-11-19 22:24 | NUR ---
2130 PTT-56 HEPARIN GTT INFUSING AT 1100 UNITS. NO CHANGED CONT APTT DAILY PER PROTOCOL.
[2021-11-20] VITALS (30 sets, daily range): BP systolic 84–153
[2021-11-20] MEDS: INSULIN LISPRO SLIDING SCALE 100 UNITS/ML VIAL (humaLOG) SUBCUT PRN ×3 (00:24→13:09)
[2021-11-20] MEDS: PROPOFOL DRIP 100 ML IV PRN ×5 (03:34→22:56)
[2021-11-20] MEDS: MIDAZOLAM IN NACL,ISO-OSMOT/PF 100 ML IV PRN (03:36)
--- NOTE | 2021-11-20 07:40 | NUR ---
RT NOTES FIO2 to 0.70 per titration order, pt gets easily agitated. Will cont. to monitor pt.
[2021-11-20 07:50] LABS: ALBUMIN 2.1 g/dL (3.4-4.8); CALCIUM 7.6 mg/dL (8.4-11.0); CREATININE 0.65 mg/dL (0.55-1.30); POTASSIUM 3.6 mmol/L (3.5-5.1); TOTAL BILIRUBIN 0.1 mg/dL (0.0-1.0)
--- NOTE | 2021-11-20 08:30 | NUR ---
RT NOTES PEEP was changed to [address] Payan
[2021-11-20] MEDS: DOCUSATE SODIUM 100 MG/10 ML UDC PO SCH (08:37)
[2021-11-20] MEDS: FUROSEMIDE 20 MG/2 ML VIAL IVP SCH (08:38)
[2021-11-20] MEDS: CHOLECALCIFEROL (VITAMIN D3) 5,000 UNIT TABLET PO SCH (08:38)
[2021-11-20] MEDS: ASCORBIC ACID 500 MG TABLET PO SCH ×2 (08:38→21:39)
[2021-11-20] MEDS: MORPHINE SULFATE IN 0.9 % NACL 100 ML IV PRN ×2 (09:12→23:44)
--- NOTE | 2021-11-20 10:12 | NUR ---
STOPPED VERSED DRIP, WILL CONTINUE OTHERS AND INCREASED DIPRIVAN TO 35MCGS//PT WAKES UP, HIGH TOLERANCE, FOLLOWS WHEN AWAKE/FIO2 REDUCED FROM 80% TO 70%, PT PEEP INCREASED FROM 10 TO 12/PT RTOLERATING AT THIS TIME//MW
[2021-11-20] MEDS: THEOPHYLLINE ANHYDROUS 200 MG CAP.ER.24H PO SCH ×3 (12:00→23:09)
[2021-11-20] MEDS: MICAFUNGIN SODIUM 100 MG in NS 100 ML IV SCH (14:13)
--- NOTE | 2021-11-20 14:30 | NUR ---
pt has moments where she wakes up raising her hands and moving out of bed, pt desaturates at that point and is difficult to sedate/pt had such an episode earlier but is now sedated once again and saturating well, thiough i had to go up on the fio2 from 70 % to 80/hr remains bart at times but bp is stable though i had to go up on the levophed from .03 to .06 mics//mw
--- NOTE | 2021-11-20 15:45 | NUR ---
RT NOTES Attempted to titrate FIO2 TO 0.70, pt desaturated to 90-91%.
[2021-11-20] MEDS: HEPARIN 25,000 UNITS in 250 ML PREMIX IV PRN (19:43)
[2021-11-20] MEDS: DEXAMETHASONE SOD PHOSPHATE 10 MG/ML VIAL IVP SCH (21:39)
[2021-11-20] MEDS: SENNA 8.8 MG/5 ML UDC NG SCH (21:41)
[2021-11-21] VITALS (26 sets, daily range): BP systolic 95–146
[2021-11-21] MEDS: MIDAZOLAM IN NACL,ISO-OSMOT/PF 100 ML IV PRN (03:33)
[2021-11-21] MEDS: PROPOFOL DRIP 100 ML IV PRN ×4 (04:08→18:24)
[2021-11-21] MEDS: THEOPHYLLINE ANHYDROUS 200 MG CAP.ER.24H PO SCH ×3 (06:28→17:10)
[2021-11-21] MEDS: INSULIN LISPRO SLIDING SCALE 100 UNITS/ML VIAL (humaLOG) SUBCUT PRN ×3 (06:39→17:27)
--- NOTE | 2021-11-21 07:15 | NUR ---
Opening notes Received report from endorsing rubberizing mechanic RN for continuity of care. Patient is lying in bed with an IVF of NS at 2 mL/hr, norepinephrine at 0.03 mcg/kg/min, heparin at 1100 mL/hr, diprivan at 40 mcg/kg/min, versed at 5 mL/hr, and [id number] at 8 mL/hr. AC 26, tidal volume 450, FIO2 80%, and peep of 12. Patient is on tube feeding vital AF 1.2 at 20 mL/hr. Esquivel catheter in place, draining to gravity clark in color [address] Bed locked in lowest position. Fall and safety precaution in place.
--- NOTE | 2021-11-21 07:38 | NUR ---
DR. Payan at bedside assessing the patient.
--- NOTE | 2021-11-21 07:45 | NUR ---
Dr. Ortiz at bedside assessing the patient.
[2021-11-21 07:48] LABS: BASOPHILS % (AUTO) 0.3 % (0.0-2.0); EOSINOPHILS # (AUTO) 0.2 K/uL (0.0-0.4); EOSINOPHILS % (AUTO) 1.3 % (0.0-4.0); HEMOGLOBIN 10.9 g/dL (12.0-16.0); LYMPHOCYTES # (AUTO) 0.4 K/uL (1.0-5.5); LYMPHOCYTES % (AUTO) 2.9 % (20.5-51.5); MEAN CORPUSCULAR HEMOGLOBIN 28 pg (27-31); MEAN CORPUSCULAR HGB CONC 32 % (32-36); MEAN CORPUSCULAR VOLUME 86 fL (79.0-98.0); MONOCYTES # (AUTO) 0.3 K/uL (0.0-1.0); MONOCYTES % (AUTO) 2.1 % (1.7-9.3); NEUTROPHILS # (AUTO) 13.7 K/uL (1.8-7.7); NEUTROPHILS % (AUTO) 93.4 % (40.0-70.0); PLATELET COUNT (AUTO) 172 K/uL (130-430); RED BLOOD CELL COUNT(AUTO) 3.97 MIL/uL (4.2-6.2); WHITE BLOOD COUNT (AUTO) 14.6 K/uL (4.8-10.8)
--- NOTE | 2021-11-21 07:55 | NUR ---
Patient's on AC 26, tidal volume 450, FIO2 at 70%, and peep of 12. Patient's vital signs heart rate 46, blood pressure 94/46, respiration 26, SPO2 93%.
--- NOTE | 2021-11-21 07:55 | NUR ---
RT NOTES FIO2 to 0.70. Will monitor pt. RN aware. @5857 sat 93%
[2021-11-21] MEDS: ASCORBIC ACID 500 MG TABLET PO SCH ×2 (08:44→22:39)
[2021-11-21] MEDS: FUROSEMIDE 20 MG/2 ML VIAL IVP SCH (08:44)
[2021-11-21] MEDS: DOCUSATE SODIUM 100 MG/10 ML UDC PO SCH (08:45)
[2021-11-21] MEDS: CHOLECALCIFEROL (VITAMIN D3) 5,000 UNIT TABLET PO SCH (08:45)
[2021-11-21] MEDS: DOPamine PREMIX 250 ML IV PRN (09:43)
--- NOTE | 2021-11-21 10:30 | NUR ---
RT NOTES Due to low sat, FIO2 TO 0.80 PEEP to 14, improvement noted.
--- NOTE | 2021-11-21 10:30 | NUR ---
Patient's Vent AC 26, FIO2 @80%, Peep 14, tidal volume 450. Patient's vital signs heart rate 68, respirations 26, SPO2 94%, and blood pressure 133/72.
--- NOTE | 2021-11-21 11:05 | NUR ---
Patient's family (Екатерина) called if she can talk to the doctor.
[2021-11-21] MEDS: MORPHINE SULFATE IN 0.9 % NACL 100 ML IV PRN (11:21)
[2021-11-21] MEDS: MICAFUNGIN SODIUM 100 MG in NS 100 ML IV SCH (12:57)
[2021-11-21] MEDS: PIPERACILLIN/TAZO 4.5GM/DEX-IS 100 ML IV SCH ×2 (14:52→22:40)
[2021-11-21] MEDS: HEPARIN 25,000 UNITS in 250 ML PREMIX IV PRN (18:30)
--- NOTE | 2021-11-21 22:00 | NUR ---
PTT is therapeutic for heparin Drip goal rate @ 52.4; no changes done to rate. Will recheck PTT in am. SR to ST on the scope. On Versed, Morphine and Propofol for sedation & Dopamine Drip to keep SBP>90 mmHg or HR>60bpm. Tolerating Vital AF via OGT w/ no residuals noted. Esquivel catheter patent draining clark urine adequately. Will cont. to monitor.
[2021-11-21] MEDS: SENNA 8.8 MG/5 ML UDC NG SCH (22:39)
[2021-11-21] MEDS: DEXAMETHASONE SOD PHOSPHATE 10 MG/ML VIAL IVP SCH (22:40)
[2021-11-22] VITALS (29 sets, daily range): BP systolic 58–156
[2021-11-22] MEDS: THEOPHYLLINE ANHYDROUS 200 MG CAP.ER.24H PO SCH ×4 (00:43→17:37)
[2021-11-22] MEDS: PROPOFOL DRIP 100 ML IV PRN ×4 (00:58→18:58)
[2021-11-22] MEDS: MORPHINE SULFATE IN 0.9 % NACL 100 ML IV PRN ×2 (01:38→15:34)
[2021-11-22] MEDS: MIDAZOLAM IN NACL,ISO-OSMOT/PF 100 ML IV PRN ×2 (04:15→17:40)
[2021-11-22] MEDS: PIPERACILLIN/TAZO 4.5GM/DEX-IS 100 ML IV SCH ×3 (05:50→21:48)
[2021-11-22] MEDS: INSULIN LISPRO SLIDING SCALE 100 UNITS/ML VIAL (humaLOG) SUBCUT PRN ×3 (06:14→17:51)
--- NOTE | 2021-11-22 06:45 | NUR ---
Pt. remains sedated on Propofol @ 30 mcg, Morphine @ 8 mg & Versed @ 5 mg w/ Dopamine Drip @ 10 mcg to keep SBP>90 or HR>60 bpm. SR on the scope w/ episodes of SB to 40s to 50s and ST in the 100s. IP=180 mg/dl; given 10 units of Humalog; will make MD aware of severe hyperglycemia. Heparin Drip infusing @ 1200 units/hr; for PTT check this am. Remains on vent w/ 80% F1O2 & PEEP 14 to keep O2Sat>92% Will cont. to monitor.
[2021-11-22] MEDS: DOPamine PREMIX 250 ML IV PRN ×3 (07:14→19:07)
--- NOTE | 2021-11-22 07:15 | NUR ---
Opening notes Received report from endorsing setup operator RN for continuity of care. Patient lying on bed with IVF NS @ 2 mL/hr, morphine 8 mL/hr, heparin 1200 units/hr, diprivan 30 mcg/kg/min, versed 5 mg/hr, and dopamine 10 mcg/kg/min. Patient's vital signs temperature 98.0 F, heart rate 69 bpm, respirations 27, SPO2 97%, blood pressure 125/57. Vent AC 26, tidal volume 450, FIO2 80%, and peep 14. Esquivel catheter in place draining to gravity clark in color. Bed is locked and at lowest position, fall and safety precautions is in place.
[2021-11-22 07:24] LABS: BASOPHILS # (AUTO) 0.1 K/uL (0.0-0.2); BASOPHILS % (AUTO) 0.7 % (0.0-2.0); EOSINOPHILS # (AUTO) 0.4 K/uL (0.0-0.4); HEMATOCRIT 37.9 % (36-48); LYMPHOCYTES # (AUTO) 0.6 K/uL (1.0-5.5); MEAN CORPUSCULAR HEMOGLOBIN 27 pg (27-31); MEAN CORPUSCULAR HGB CONC 32 % (32-36); MEAN CORPUSCULAR VOLUME 87 fL (79.0-98.0); MONOCYTES # (AUTO) 0.3 K/uL (0.0-1.0); MONOCYTES % (AUTO) 1.6 % (1.7-9.3); NEUTROPHILS # (AUTO) 18.7 K/uL (1.8-7.7); NEUTROPHILS % (AUTO) 92.7 % (40.0-70.0); PLATELET COUNT (AUTO) 173 K/uL (130-430); RED BLOOD CELL COUNT(AUTO) 4.37 MIL/uL (4.2-6.2); RED CELL DISTRIBUTION WIDTH 17.3 % (9.0-15.0); WHITE BLOOD COUNT (AUTO) 20.2 K/uL (4.8-10.8)
--- NOTE | 2021-11-22 07:43 | NUR ---
Dr. Ortiz at bedside assessing the patient.
[2021-11-22 08:13] LABS: ALBUMIN 2.3 g/dL (3.4-4.8); CALCIUM 8.6 mg/dL (8.4-11.0); CREATININE 0.77 mg/dL (0.55-1.30); POTASSIUM 4.6 mmol/L (3.5-5.1); TOTAL BILIRUBIN 0.4 mg/dL (0.0-1.0)
[2021-11-22] MEDS: ASCORBIC ACID 500 MG TABLET PO SCH ×2 (08:27→21:47)
[2021-11-22] MEDS: CHOLECALCIFEROL (VITAMIN D3) 5,000 UNIT TABLET PO SCH (08:27)
[2021-11-22] MEDS: DOCUSATE SODIUM 100 MG/10 ML UDC PO SCH (08:28)
[2021-11-22] MEDS: FUROSEMIDE 20 MG/2 ML VIAL IVP SCH (08:31)
--- NOTE | 2021-11-22 08:32 | NUR ---
Dr. Payan at bedside assessing the patient.
[2021-11-22] MEDS: HEPARIN SODIUM,PORCINE 3000 UNITS/0.6 ML BOLUS IVP PRN (09:09)
[2021-11-22] MEDS: HEPARIN 25,000 UNITS in 250 ML PREMIX IV PRN (10:37)
[2021-11-22] MEDS: MICAFUNGIN SODIUM 100 MG in NS 100 ML IV SCH (12:29)
--- NOTE | 2021-11-22 13:02 | NUR ---
Patient's blood glucose is 277. Gave 6 units of Humalog subq per sliding scale.
--- NOTE | 2021-11-22 16:00 | NUR ---
Patient's Vent AC 18, TV 500, peep of 8, and FIO2 70%. Patient's vital signs blood pressure 93/49, SPO2 94%, respiration 22, and heart rate 66.
--- NOTE | 2021-11-22 16:49 | NUR ---
Nutrition F/U Admitting Diagnosis: COVID, pneumonia Medical History Comment: COVID-19 per physician notes 11/19 MD notes: Sepsis, COPD Pt also found w/ sepsis per physician notes SARS-CoV-2 Ag (Rapid) Positive 11/14 Subjective Information: RD bedside visit deferred d/t airborne isolation c/w COVID. RD rounded to ICU and spoke w/ pt's primary RN outside of pt's room. Witnessed TF infusing as per physician order -- 5 ml infused as RN had just hung a new formula. He stated pt has been tolerating TF well today w/ GRV of 5 ml. He also reported no BM yet today. Per EMR review, TF Rate: 45 ml 11/22; GRV: 120 ml 11/22; TF Intakes: 360 ml 11/22; abd is soft w/ active bowel sounds; OGT present; last BM x1 11/20; 2+ pitting edema noted to BUE. Current TF prescription continues adequate/appropriate. Current Diet Order/Nutrition Support: Vital AF 1.2 at 45 ml/hr (goal); Free Water Flush: 200 ml Q6H via OGT x6 days Pertinent Medications: propofol at 14.86 ml/hr (392 kcal/day), zinc, VIT D3, VIT C, decadron, senna, SSI, colace, lasix Pertinent Labs: K 143 WNL, K 4.6 WNL, BG 361 H, BUN 28 H, CRE 0.77 WNL Height (Feet) 5 feet Height (Inches) 4.00 inches Weight (Pounds) 182 pounds -- stable since 11/16 Weight (Calculated Kilograms) 82.569853 kilograms Patient Weight 82.554 kg Body Mass Index 31.24 kg/m2 %IBW 152 [place]/Adjusted Body Weight 120#/55 kg. 136#/62 kg Weight Status Obese Estimated Energy Expenditure (kcals/day) 1719 (PSU 2009 d/t criticall illness on vent; Ve: 12.1; Tmax: 36.2'C) Estimated Protein Required (g/day) 83-110 (1.5-2 gm/kg IBW d/t obesity, sepsis) Estimated Fluid Required (l/day) 1.7 (1 ml/kcal/day for maintenance) Problem/Etiology/Signs/Symptoms Increased nutritional needs R/T metabolic demands AEB estimated nutritional requirements for sepsis. (*ongoing) Expected Outcomes/Goals - Monitor EN tolerance and intake w/ goal of pt meeting >80% of estimated nutritional needs, labs trending WNL, normal GI function, and skin integrity/wt maintenance Dietitian Recommendations * Vital AF 1.2 at 45 ml/hr (goal rate), Free Water Flush: 200 ml Q6h via OGT Provides (w/ current propofol rate): 1688 kcal/day, 81 gm protein/day, and 1676 ml free water/day Meets: 98% of estimated caloric needs and 98% of lower end of estimated protein needs Follow Up High Risk: F/U in 2-3 days
--- NOTE | 2021-11-22 16:55 | NUR ---
Dietitian Recommendations * Vital AF 1.2 at 45 ml/hr (goal rate), Free Water Flush: 200 ml Q6h via OGT Provides (w/ current propofol rate): 1688 kcal/day, 81 gm protein/day, and 1676 ml free water/day Meets: 98% of estimated caloric needs and 98% of lower end of estimated protein needs LP, RD Please refer to Nutrition F/U for details.
[2021-11-22] MEDS: DEXAMETHASONE SOD PHOSPHATE 10 MG/ML VIAL IVP SCH (21:47)
[2021-11-22] MEDS: SENNA 8.8 MG/5 ML UDC NG SCH (21:48)
[2021-11-23] VITALS (28 sets, daily range): BP systolic 93–180
[2021-11-23] MEDS: THEOPHYLLINE ANHYDROUS 200 MG CAP.ER.24H PO SCH ×4 (00:16→18:01)
[2021-11-23] MEDS: INSULIN LISPRO SLIDING SCALE 100 UNITS/ML VIAL (humaLOG) SUBCUT PRN ×4 (00:59→18:28)
[2021-11-23] MEDS: PROPOFOL DRIP 100 ML IV PRN ×4 (01:59→21:56)
[2021-11-23] MEDS: DOPamine PREMIX 250 ML IV PRN ×3 (02:06→18:01)
--- NOTE | 2021-11-23 03:00 | NUR ---
PTT=65.9 secs; within goal range; no change to Heparin Drip rate of 1300 units/hr. Will cont. to monitor.
[2021-11-23] MEDS: MORPHINE SULFATE IN 0.9 % NACL 100 ML IV PRN ×2 (04:04→18:30)
[2021-11-23] MEDS: PIPERACILLIN/TAZO 4.5GM/DEX-IS 100 ML IV SCH ×3 (06:05→21:51)
--- NOTE | 2021-11-23 07:00 | NUR ---
received report from endorsing shift supervisor Rn for continuity of care, patient lying on be d with an IVF of Ns @ 2 ml/hr, dopamine @ 10 mcg/kg/min, morphine @ 8 ml/hr, heparin @ 1300 units, diprivan @ 30 mcg/kg/min and versed @ 5 ml/hr.on Ac rate of 26, tidal volume 450 Fio2 @ 60 and PEEp of 14, Tube feeding of Vital AF 1.2 @ 45,turner catheter in place yellow urine in color, SCD in place, bed locked at lowest position, fall and safety precaution in place, will continue to monitor.
--- NOTE | 2021-11-23 07:36 | NUR ---
checked patient blood sugar 356, 10 units of humalog insulin given subcut. per sliding scale.
--- NOTE | 2021-11-23 08:30 | NUR ---
Dr Ortiz is at bedside assessing the patient, verbal report given.
[2021-11-23] MEDS: FUROSEMIDE 20 MG/2 ML VIAL IVP SCH (09:44)
[2021-11-23] MEDS: DOCUSATE SODIUM 100 MG/10 ML UDC PO SCH (09:47)
[2021-11-23] MEDS: CHOLECALCIFEROL (VITAMIN D3) 5,000 UNIT TABLET PO SCH (09:47)
[2021-11-23] MEDS: ASCORBIC ACID 500 MG TABLET PO SCH ×2 (09:49→21:45)
[2021-11-23] MEDS: MICAFUNGIN SODIUM 100 MG in NS 100 ML IV SCH (12:10)
[2021-11-23] MEDS: MIDAZOLAM IN NACL,ISO-OSMOT/PF 100 ML IV PRN (12:18)
[2021-11-23] MEDS: HEPARIN 25,000 UNITS in 250 ML PREMIX IV PRN (12:22)
--- NOTE | 2021-11-23 12:57 | NUR ---
checked patient blood sugar 340. 8 units of humalog insulin given subcut per sliding scale
--- NOTE | 2021-11-23 18:28 | NUR ---
checked patient blood sugar 264, 6 units of humalog insulin given SQ per sliding scale.
[2021-11-23] MEDS: DEXAMETHASONE SOD PHOSPHATE 10 MG/ML VIAL IVP SCH (21:45)
[2021-11-23] MEDS: SENNA 8.8 MG/5 ML UDC NG SCH (21:45)
[2021-11-24] VITALS (26 sets, daily range): BP systolic 73–159
[2021-11-24] MEDS: THEOPHYLLINE ANHYDROUS 200 MG CAP.ER.24H PO SCH ×4 (01:00→17:26)
[2021-11-24] MEDS: INSULIN LISPRO SLIDING SCALE 100 UNITS/ML VIAL (humaLOG) SUBCUT PRN ×4 (01:44→17:46)
[2021-11-24] MEDS: PROPOFOL DRIP 100 ML IV PRN ×4 (02:53→20:41)
[2021-11-24] MEDS: PIPERACILLIN/TAZO 4.5GM/DEX-IS 100 ML IV SCH ×3 (05:26→20:57)
[2021-11-24 06:51] LABS: BASOPHILS # (AUTO) 0.1 K/uL (0.0-0.2); BASOPHILS % (AUTO) 0.5 % (0.0-2.0); EOSINOPHILS % (AUTO) 0.3 % (0.0-4.0); HEMATOCRIT 35.8 % (36-48); HEMOGLOBIN 11.5 g/dL (12.0-16.0); LYMPHOCYTES # (AUTO) 0.7 K/uL (1.0-5.5); LYMPHOCYTES % (AUTO) 6.7 % (20.5-51.5); MEAN CORPUSCULAR HEMOGLOBIN 28 pg (27-31); MEAN CORPUSCULAR HGB CONC 32 % (32-36); MEAN CORPUSCULAR VOLUME 87 fL (79.0-98.0); MONOCYTES # (AUTO) 0.5 K/uL (0.0-1.0); NEUTROPHILS # (AUTO) 9.9 K/uL (1.8-7.7); NEUTROPHILS % (AUTO) 88.5 % (40.0-70.0); PLATELET COUNT (AUTO) 168 K/uL (130-430); RED BLOOD CELL COUNT(AUTO) 4.14 MIL/uL (4.2-6.2); RED CELL DISTRIBUTION WIDTH 17.5 % (9.0-15.0); WHITE BLOOD COUNT (AUTO) 11.2 K/uL (4.8-10.8)
--- NOTE | 2021-11-24 07:20 | NUR ---
received report from endorsing shift leader RN for continuity of care, patient lying on bed with an IVF of NS @ 2 ml/hr, dopamine 10 mcg/kg/min, morphine 8 mg/hr, heparin 1300 units, diprivan 30 mcg/kg/min versed 5 mg/dl. on AC rate of 26, tidal volume 450, Fio2 @ 50 and Peep of 13, on tube feeding vital AF 1.2 @ 45 mls/hr, scd in place, turner catheter in place, draining to gravity yellow urine in color..bed locked at lowest position. fall and safety precaution in place. will continue to monitor.
[2021-11-24 07:24] LABS: ALBUMIN 2.4 g/dL (3.4-4.8); CALCIUM 8.7 mg/dL (8.4-11.0); CREATININE 0.79 mg/dL (0.55-1.30); POTASSIUM 4.5 mmol/L (3.5-5.1); TOTAL BILIRUBIN 0.4 mg/dL (0.0-1.0)
[2021-11-24] MEDS: HEPARIN 25,000 UNITS in 250 ML PREMIX IV PRN (07:44)
--- NOTE | 2021-11-24 07:45 | NUR ---
Dr. Muñiz is at bedside assessing the patient.verbal report given
[2021-11-24] MEDS: MORPHINE SULFATE IN 0.9 % NACL 100 ML IV PRN ×2 (07:46→23:23)
[2021-11-24] MEDS: MIDAZOLAM IN NACL,ISO-OSMOT/PF 100 ML IV PRN (08:01)
--- NOTE | 2021-11-24 08:15 | NUR ---
Dr. Ortiz is at the bedside assessing the patient, verbal reports given.
[2021-11-24] MEDS: DOPamine PREMIX 250 ML IV PRN ×2 (09:22→16:26)
[2021-11-24] MEDS: FUROSEMIDE 20 MG/2 ML VIAL IVP SCH (09:34)
[2021-11-24] MEDS: DOCUSATE SODIUM 100 MG/10 ML UDC PO SCH (09:35)
[2021-11-24] MEDS: CHOLECALCIFEROL (VITAMIN D3) 5,000 UNIT TABLET PO SCH (09:35)
[2021-11-24] MEDS: ASCORBIC ACID 500 MG TABLET PO SCH ×2 (09:35→20:56)
--- NOTE | 2021-11-24 10:11 | NUR ---
[address] prajapati vent changes. titrate fio2 by 5 every 2hrs. At .40 fio2 then titrate peep to 12. Fio2 was titrated to .50 at 0905, rajiv ren to monitor. Addendum: 11/24/21 at 1014 by Agatha Casey RT Amended: Links added.
[2021-11-24] MEDS: MICAFUNGIN SODIUM 100 MG in NS 100 ML IV SCH (12:15)
--- NOTE | 2021-11-24 12:28 | NUR ---
checked patient blood sugar 273, 6 units of humalog insulin given SQ per sliding scale.
--- NOTE | 2021-11-24 15:05 | NUR ---
talked to patient daughter on the phone, answered questions and update patient status.
[2021-11-24] MEDS: ACETAMINOPHEN 325 MG TABLET PO PRN (15:42)
--- NOTE | 2021-11-24 17:46 | NUR ---
checked patient blood sugar 211, 4 units of humalog insulin given SQ per sliding scale.
[2021-11-24] MEDS: SENNA 8.8 MG/5 ML UDC NG SCH (20:55)
[2021-11-24] MEDS: DEXAMETHASONE SOD PHOSPHATE 10 MG/ML VIAL IVP SCH (20:57)
[2021-11-25] VITALS (31 sets, daily range): BP systolic 100–150
[2021-11-25] MEDS: THEOPHYLLINE ANHYDROUS 200 MG CAP.ER.24H PO SCH ×4 (00:36→18:10)
[2021-11-25] MEDS: DOPamine PREMIX 250 ML IV PRN ×3 (00:50→17:10)
[2021-11-25] MEDS: INSULIN LISPRO SLIDING SCALE 100 UNITS/ML VIAL (humaLOG) SUBCUT PRN ×4 (01:15→18:12)
[2021-11-25] MEDS: ACETAMINOPHEN 325 MG TABLET PO PRN (01:17)
[2021-11-25] MEDS: PIPERACILLIN/TAZO 4.5GM/DEX-IS 100 ML IV SCH ×3 (05:28→22:37)
[2021-11-25] MEDS: MIDAZOLAM IN NACL,ISO-OSMOT/PF 100 ML IV PRN (05:32)
[2021-11-25 06:50] LABS: BASOPHILS # (AUTO) 0.1 K/uL (0.0-0.2); BASOPHILS % (AUTO) 0.6 % (0.0-2.0); EOSINOPHILS % (AUTO) 0.2 % (0.0-4.0); HEMATOCRIT 35.6 % (36-48); HEMOGLOBIN 11.4 g/dL (12.0-16.0); LYMPHOCYTES # (AUTO) 0.8 K/uL (1.0-5.5); LYMPHOCYTES % (AUTO) 8.4 % (20.5-51.5); MEAN CORPUSCULAR HEMOGLOBIN 28 pg (27-31); MEAN CORPUSCULAR HGB CONC 32 % (32-36); MEAN CORPUSCULAR VOLUME 87 fL (79.0-98.0); MONOCYTES # (AUTO) 0.6 K/uL (0.0-1.0); MONOCYTES % (AUTO) 6.2 % (1.7-9.3); NEUTROPHILS # (AUTO) 8.3 K/uL (1.8-7.7); NEUTROPHILS % (AUTO) 84.6 % (40.0-70.0); PLATELET COUNT (AUTO) 168 K/uL (130-430); RED BLOOD CELL COUNT(AUTO) 4.09 MIL/uL (4.2-6.2); RED CELL DISTRIBUTION WIDTH 17.9 % (9.0-15.0); WHITE BLOOD COUNT (AUTO) 9.8 K/uL (4.8-10.8)
--- NOTE | 2021-11-25 07:00 | NUR ---
Pt. remains on sedation and Dopamine to keep HR>55 bpm and SBP>90 mmHg w/ VSS. SR to ST on the scope w/ episodes of SB in the 50s. Esquivel Catheter w/ adequate urine but bloody; Heparin Drip turned off and Dr. Lopez made aware w/ no new orders. To follow up stat PTT. Crdiac and resp. monitoring cont. Needs anticipated.
[2021-11-25 07:11] LABS: ALBUMIN 2.5 g/dL (3.4-4.8); CALCIUM 8.9 mg/dL (8.4-11.0); CREATININE 0.8 mg/dL (0.55-1.30); POTASSIUM 4.5 mmol/L (3.5-5.1); TOTAL BILIRUBIN 0.3 mg/dL (0.0-1.0)
--- NOTE | 2021-11-25 07:56 | NUR ---
RECEIVED PT FROM LINDSEY LANDEROS. ASSUMED ALL CARE. PT SEEN BY NARA FELIX.
--- NOTE | 2021-11-25 07:59 | NUR ---
PEEP DECREASEDA TO [address] CROSS.
--- NOTE | 2021-11-25 08:00 | NUR ---
RT NOTES Dr Tse change PEEP to 10. Order is to wean PEEP down to 5 as tolerated.
[2021-11-25] MEDS: ASCORBIC ACID 500 MG TABLET PO SCH ×2 (08:58→21:52)
[2021-11-25] MEDS: DOCUSATE SODIUM 100 MG/10 ML UDC PO SCH (08:58)
[2021-11-25] MEDS: CHOLECALCIFEROL (VITAMIN D3) 5,000 UNIT TABLET PO SCH (08:59)
[2021-11-25] MEDS: FUROSEMIDE 20 MG/2 ML VIAL IVP SCH (08:59)
[2021-11-25] MEDS: PROPOFOL DRIP 100 ML IV SCH ×3 (09:03→23:47)
--- NOTE | 2021-11-25 11:22 | NUR ---
REPORTED FOLLOW UP PTT OF 36.[address] GRUBER, HE STATED IT IS UP TO THE PRIMARY TEAM IF THEY WANT THE HEPARIN RESUMED. AT THIS TIME HE WOULD STILL LIKE TO MONITOR THE URINE, LINDSEY LAST CHARGE MADE AWARE.
--- NOTE | 2021-11-25 11:59 | NUR ---
R/T DECREASED PEEP TO 9 AT THIS TIME B/P 117/58 (81).
--- NOTE | 2021-11-25 11:59 | NUR ---
RT NOTES PEEP to 9. Will monitor pt. Rn aware.
--- NOTE | 2021-11-25 12:00 | NUR ---
PT HAD BLOOD IN URINE, DR. ROSALES STATED HE WOULD LIKE THE HEPARIN DISCONTINUED. SPOKE TO DR. Perez WHO STATED HE WANTED THE HEPARIN HELD AND TO FOLLOW UP WITH DR. ROSALES IF HE WANTS IT CONTINUED.
[2021-11-25] MEDS: MICAFUNGIN SODIUM 100 MG in NS 100 ML IV SCH (13:18)
[2021-11-25] MEDS: MORPHINE SULFATE IN 0.9 % NACL 100 ML IV PRN (13:35)
--- NOTE | 2021-11-25 15:55 | NUR ---
RT NOTES PEEP to 8. Will monitor pt. RN aware
--- NOTE | 2021-11-25 19:59 | NUR ---
CRITICAL ABGS VALUES REPORTED TO DR. CROSS. SHE STATED, PLACE PT BACK ON PRIOR VENT SETTINGS. Addendum: 11/25/21 at 2000 by [facility] patient manager WRONG PT.
[2021-11-25] MEDS: SENNA 8.8 MG/5 ML UDC NG SCH (21:00)
[2021-11-25] MEDS: DEXAMETHASONE SOD PHOSPHATE 10 MG/ML VIAL IVP SCH (21:53)
[2021-11-26] VITALS (28 sets, daily range): BP systolic 95–154
[2021-11-26] MEDS ORDERED: MIDAZOLAM IN NACL,ISO-OSMOT/PF 100 ML IV ONE (01:07)
[2021-11-26] MEDS: THEOPHYLLINE ANHYDROUS 200 MG CAP.ER.24H PO SCH ×4 (01:29→17:26)
[2021-11-26] MEDS: DOPamine PREMIX 250 ML IV PRN ×3 (01:33→17:25)
[2021-11-26] MEDS: MORPHINE SULFATE IN 0.9 % NACL 100 ML IV PRN (01:34)
[2021-11-26] MEDS: INSULIN LISPRO SLIDING SCALE 100 UNITS/ML VIAL (humaLOG) SUBCUT PRN ×3 (01:36→17:55)
--- NOTE | 2021-11-26 02:51 | NUR ---
ENDORSED ALL CARE TO LINDSEY BOSCH. ALL QUESTIONS AND CONCERNS ADDRESSED.
[2021-11-26] MEDS: PROPOFOL DRIP 100 ML IV SCH ×2 (05:01→12:15)
[2021-11-26] MEDS: PIPERACILLIN/TAZO 4.5GM/DEX-IS 100 ML IV SCH ×2 (05:47→13:35)
--- NOTE | 2021-11-26 07:30 | NUR ---
INITIAL SHIFT REPORT RECEIVED FROM NIGHT RN FOR CONTINUATION OF CARE. AXILLARY TEMP 99.3; APPLIED ICEPACK. OTHER VS(s) are WNR
--- NOTE | 2021-11-26 08:00 | NUR ---
RT NOTES PEEP to 7 per titration order. Will monitor pt. RN aware
[2021-11-26] MEDS: DOCUSATE SODIUM 100 MG/10 ML UDC PO SCH (08:21)
[2021-11-26] MEDS: ASCORBIC ACID 500 MG TABLET PO SCH ×2 (08:21→21:27)
[2021-11-26] MEDS: CHOLECALCIFEROL (VITAMIN D3) 5,000 UNIT TABLET PO SCH (08:22)
[2021-11-26] MEDS: FUROSEMIDE 20 MG/2 ML VIAL IVP SCH (08:23)
--- NOTE | 2021-11-26 10:08 | NUR ---
Nutrition F/U Admitting Diagnosis: COVID, pneumonia Medical History Comment: COVID-19 per physician notes 11/19 MD notes: Sepsis, COPD Pt also found w/ sepsis per physician notes SARS-CoV-2 Ag (Rapid) Positive 11/14 Subjective Information: RD bedside visit deferred d/t airborne isolation c/w COVID. RD rounded to ICU and spoke w/ pt's primary RN outside of pt's room. RD observed that EN was not infusing during time of visit. RD s/w primary RN who reported that GRV was 50-60ml this morning and EN was off d/t medication administration. RN also reported that propofol is at 20mcg/kg/min. Per EMR review, abdomen is soft and nondistended w/ active bowel sounds, BM 11/23 x1, Fred scale: 12, no skin issues documented, 2+ edema to BLE per plywood layup line back feeder. EN rate: 45ml (11/26); GRV: 0ml (11/26). Current EN regimen/order remains adequate and appropriate. Current Diet Order/Nutrition Support: Vital AF 1.2 at 45 ml/hr (goal); Free Water Flush: 200 ml Q6H via OGT x10 days Pertinent Medications: propofol at 9.9 ml/hr (261 kcal/day), zinc, VIT D3, VIT C, decadron, senna liquid, SSI, colace liquid, lasix, heparin, haldol Pertinent Labs: 11/25 Na 139 WNL, K 4.5 WNL, BG 346 H, BUN 37 H, CRE 0.80 WNL Height (Feet) 5 feet Height (Inches) 4.00 inches Weight (Pounds) 182 pounds -- stable since 11/16 Weight (Calculated Kilograms) 82.639869 kilograms Patient Weight 82.554 kg Body Mass Index 31.24 kg/m2 %IBW 152 [place]/Adjusted Body Weight 120#/55 kg. 136#/62 kg Weight Status Obese NEW Estimated Energy Expenditure (kcals/day) 1851 (PSU 2009 d/t criticall illness on vent; Ve: 11.9; Tmax: 37.9'C) Estimated Protein Required (g/day) 83-110 (1.5-2 gm/kg IBW d/t obesity, sepsis) Estimated Fluid Required (l/day) 1.7 (1 ml/kcal/day for maintenance) Problem/Etiology/Signs/Symptoms Increased nutritional needs R/T metabolic demands AEB estimated nutritional requirements for sepsis. (*ongoing) Expected Outcomes/Goals - Monitor EN tolerance and intake w/ goal of pt meeting >80% of estimated nutritional needs, labs trending WNL, normal GI function, and skin integrity/wt maintenance Dietitian Recommendations * Continue Vital AF 1.2 at 45 ml/hr (goal rate), Free Water Flush: 200 ml Q6h via OGT Provides (w/ current propofol rate): 1622 kcal/day, 81 gm protein/day, and 1676 ml free water/day Meets: 88% of estimated caloric needs and 98% of lower end of estimated protein needs Follow Up High Risk: F/U in 2-3 days
--- NOTE | 2021-11-26 11:00 | NUR ---
Status update Patient is becoming restless and fighting the ventilator. Sedation has been turned back on and will continue to monitor/titrate as needed. Addendum: 11/27/21 at 0500 by Logan Willoughby RN input at the incorrect time, correct time is 2300
[2021-11-26] MEDS: MICAFUNGIN SODIUM 100 MG in NS 100 ML IV SCH (12:02)
--- NOTE | 2021-11-26 13:15 | NUR ---
RT NOTES Dr Tse rounding now, no new orders for RT
--- NOTE | 2021-11-26 13:16 | NUR ---
MD CROSS ASSESSED & AT THE BEDSIDE PER MD CROSS TO TITRATE OFF SEDATION DRIPS
[2021-11-26] MEDS ORDERED: NOREPINEPHRINE 4 MG/4 ML VIAL IV ONE (15:54)
--- NOTE | 2021-11-26 16:05 | NUR ---
UPDATED PT'S SBP SUDDENLY DROPPED TO (SBP) <60 (TWICE WITHIN 3 HRS RANGE). STARTED LEVOPHED DRIP PER PROTOCOL
--- NOTE | 2021-11-26 16:05 | NUR ---
RT NOTES PEEP to 6 per order. No adverse reactions noted. RN aware.
[2021-11-26] MEDS: NOREPINEPHRINE BITARTRATE 4 MG in D5W 246 ML IV PRN (17:20)
--- NOTE | 2021-11-26 19:30 | NUR ---
Opening Note Care endorsed from day shift nurse. Patient is resting in bed with all sedation turned off. VSS. Will continue to monitor.
--- NOTE | 2021-11-26 19:38 | NUR ---
ENDORSEMENT END OF SHIFT REPORT GIVEN TO NIGHT RN FOR CONTINUATION OF CARE
[2021-11-26] MEDS: SENNA 8.8 MG/5 ML UDC NG SCH (21:27)
[2021-11-27] VITALS (31 sets, daily range): BP systolic 86–164
[2021-11-27] MEDS: PIPERACILLIN/TAZO 4.5GM/DEX-IS 100 ML IV SCH ×4 (00:43→21:08)
[2021-11-27] MEDS: DEXAMETHASONE SOD PHOSPHATE 10 MG/ML VIAL IVP SCH ×2 (00:44→21:05)
[2021-11-27] MEDS: INSULIN LISPRO SLIDING SCALE 100 UNITS/ML VIAL (humaLOG) SUBCUT PRN ×4 (00:48→18:07)
[2021-11-27] MEDS: THEOPHYLLINE ANHYDROUS 200 MG CAP.ER.24H PO SCH ×4 (05:25→18:09)
[2021-11-27] MEDS: PROPOFOL DRIP 100 ML IV SCH ×3 (06:46→19:00)
[2021-11-27 06:57] LABS: BASOPHILS % (AUTO) 0.4 % (0.0-2.0); EOSINOPHILS # (AUTO) 0.1 K/uL (0.0-0.4); EOSINOPHILS % (AUTO) 0.6 % (0.0-4.0); HEMATOCRIT 34.7 % (36-48); HEMOGLOBIN 11.1 g/dL (12.0-16.0); LYMPHOCYTES # (AUTO) 0.6 K/uL (1.0-5.5); LYMPHOCYTES % (AUTO) 4.8 % (20.5-51.5); MEAN CORPUSCULAR HEMOGLOBIN 28 pg (27-31); MEAN CORPUSCULAR HGB CONC 32 % (32-36); MEAN CORPUSCULAR VOLUME 87 fL (79.0-98.0); MONOCYTES # (AUTO) 0.3 K/uL (0.0-1.0); MONOCYTES % (AUTO) 2.4 % (1.7-9.3); NEUTROPHILS # (AUTO) 10.7 K/uL (1.8-7.7); NEUTROPHILS % (AUTO) 91.8 % (40.0-70.0); PLATELET COUNT (AUTO) 145 K/uL (130-430); RED BLOOD CELL COUNT(AUTO) 3.99 MIL/uL (4.2-6.2); RED CELL DISTRIBUTION WIDTH 16.8 % (9.0-15.0); WHITE BLOOD COUNT (AUTO) 11.7 K/uL (4.8-10.8)
--- NOTE | 2021-11-27 07:15 | NUR ---
Opening notes Received report from endorsing scene shifter RN for continuity care. Patient lying in bed with IVF NS @ 2 mL/hr, versed 3 mg/hr, propofol 20 mcg/kg/min, levophed 0.03 mcg/kg/min. Checked vital signs blood pressure 117/65, SPO2 98%, respiration 26, heart rate 76, and temperature 97.1 F. Vent AC 26, tidal volume 450, FIO2 50%, and peep 6. Esquivel catheter is in place draining to gravity. Bed locked at lowest position, fall and safety precautions is in place. Will continue to monitor.
--- NOTE | 2021-11-27 07:29 | NUR ---
Dr. Ortiz at bedside assessing the patient. No new order given.
--- NOTE | 2021-11-27 07:35 | NUR ---
RT NOTES FIO2 to 0.40 PEEP to 5 per order. No adverse reactions noted. will monitor pt. RN aware.
--- NOTE | 2021-11-27 07:35 | NUR ---
Patient's vent AC 26, tidal volume 450, FIO2 40, and peep 5. Patient SPO2 97%.
[2021-11-27 08:09] LABS: ALBUMIN 2.5 g/dL (3.4-4.8); CALCIUM 8.8 mg/dL (8.4-11.0); CREATININE 0.65 mg/dL (0.55-1.30); TOTAL BILIRUBIN 0.6 mg/dL (0.0-1.0)
[2021-11-27] MEDS: FUROSEMIDE 20 MG/2 ML VIAL IVP SCH (09:22)
[2021-11-27] MEDS: ASCORBIC ACID 500 MG TABLET PO SCH ×2 (09:22→21:03)
[2021-11-27] MEDS: DOCUSATE SODIUM 100 MG/10 ML UDC PO SCH (09:23)
[2021-11-27] MEDS: CHOLECALCIFEROL (VITAMIN D3) 5,000 UNIT TABLET PO SCH (09:23)
--- NOTE | 2021-11-27 09:25 | NUR ---
RT NOTES Dr Tse roundlisandra now. No new orders for RT.
--- NOTE | 2021-11-27 09:30 | NUR ---
Dr. Tse at bedside assessing the patient.
[2021-11-27] MEDS: MIDAZOLAM IN NACL,ISO-OSMOT/PF 100 ML IV PRN (10:38)
--- NOTE | 2021-11-27 10:38 | NUR ---
Patient's family member called for updates.
--- NOTE | 2021-11-27 10:51 | NUR ---
Dr. Rojas at bedside assessing the patient. Verbal update given. No new order given.
[2021-11-27] MEDS: MICAFUNGIN SODIUM 100 MG in NS 100 ML IV SCH (13:04)
--- NOTE | 2021-11-27 15:15 | NUR ---
RT NOTES Sputum collected and endorsed to RN, who took sample to Lab.
--- NOTE | 2021-11-27 16:00 | NUR ---
Patient's family at bedside, gave updates.
--- NOTE | 2021-11-27 20:00 | NUR ---
Receive full bedside report from AM RN patient the patient is a 66 year old F, Sedated and Vented. With an admitting Dx of Acute respiratory failure, sepsis and hypoxia, Covid PNA, CHF The vent settings of A/c 16, AV of 450, FiO2 40% Peep of 5. She is unable to make his need known. Patient with a R upper arm PICC line 2L. She is on Levo, Verset, Propofol, . Notice patient with both upper and lower extremities edema. With sacral coccyx redness. Feeding tube in place, feeding running at 45cc/ hr and it is the goal at this time. Patient is still on isolation due to Covid. HOB elevated to prevent aspiration, side rails up X2 and bed brakes in an on position. Patient is not alert and only response to pain stimuli. Feeding tube placement confirmed and residual noted less than 10cc. Abdomen soft and non distended, bowel sound present in all 4Q. All need anticipated. Kept clean dry and comfortable. Call light with in reach at all times Good oral care provided Q2hrs and PRN. Was able to provide a full bed bath and patient tolerated well. All needs anticipated. Patient is still on Keppra no s/s of seizures noted at this time. No blood thinners given during me shift. Still following all isolation precaution due to covid, per facility protocol and patient is tolerating well. Turned and reposition Q2hrs and prn. No s/s of bleeding noted or acute distress. No change LOC noted during my shift. All due Meds given as order with no a/r noted at this time. Kept clean dry and comfortable and all need anticipated HOB elevated, turned and reposition Q2 hrs and PRN. No s/s of acute distress. Patient still resting in bed and unable to respond to command. No s/s of distress or pain noted at this time. Tolerating the feeding well. No fever, no n/v noted during shift. Good oral care provided Q2hrs and PRN Call light with in reach at all times. Kept clean dry and comfortable
[2021-11-27] MEDS: SENNA 8.8 MG/5 ML UDC NG SCH (21:05)
[2021-11-28] VITALS (21 sets, daily range): BP systolic 92–143
[2021-11-28] MEDS: NOREPINEPHRINE BITARTRATE 4 MG in D5W 246 ML IV PRN (00:27)
[2021-11-28] MEDS: THEOPHYLLINE ANHYDROUS 200 MG CAP.ER.24H PO SCH ×4 (00:47→17:36)
[2021-11-28] MEDS: INSULIN LISPRO SLIDING SCALE 100 UNITS/ML VIAL (humaLOG) SUBCUT PRN ×4 (01:02→18:15)
[2021-11-28] MEDS: PROPOFOL DRIP 100 ML IV SCH ×4 (06:29→21:05)
[2021-11-28] MEDS: PIPERACILLIN/TAZO 4.5GM/DEX-IS 100 ML IV SCH ×3 (06:36→21:15)
[2021-11-28 06:56] LABS: BASOPHILS # (AUTO) 0.1 K/uL (0.0-0.2); BASOPHILS % (AUTO) 0.9 % (0.0-2.0); EOSINOPHILS # (AUTO) 0.1 K/uL (0.0-0.4); EOSINOPHILS % (AUTO) 0.4 % (0.0-4.0); HEMATOCRIT 34.9 % (36-48); HEMOGLOBIN 11.2 g/dL (12.0-16.0); LYMPHOCYTES # (AUTO) 0.8 K/uL (1.0-5.5); LYMPHOCYTES % (AUTO) 7.1 % (20.5-51.5); MEAN CORPUSCULAR HEMOGLOBIN 28 pg (27-31); MEAN CORPUSCULAR HGB CONC 32 % (32-36); MEAN CORPUSCULAR VOLUME 87 fL (79.0-98.0); MONOCYTES # (AUTO) 0.4 K/uL (0.0-1.0); MONOCYTES % (AUTO) 3.2 % (1.7-9.3); NEUTROPHILS # (AUTO) 10.1 K/uL (1.8-7.7); NEUTROPHILS % (AUTO) 88.4 % (40.0-70.0); PLATELET COUNT (AUTO) 154 K/uL (130-430); RED BLOOD CELL COUNT(AUTO) 4.01 MIL/uL (4.2-6.2); RED CELL DISTRIBUTION WIDTH 17.5 % (9.0-15.0); WHITE BLOOD COUNT (AUTO) 11.5 K/uL (4.8-10.8)
--- NOTE | 2021-11-28 07:20 | NUR ---
Opening notes Received report from endorsing scene shifter RN for continuity of care. Patient is lying on bed with IVF NS @ 2 mL/hr, versed 3 mg/hr, diprivan 35 mcg/kg/min, and levophed 0.03 mcg/kg/min. Patient's vital signs 143/67, heart rate 87, respiration 32, temperature 97.6, SPO2 95%. Vent AC26, tidal volume 450, FIO2 40%, peep 6. Esquivel catheter is in place draining to gravity yellow. Bed locked in lowest position, fall and safety precautions in place.
[2021-11-28 07:29] LABS: ALANINE AMINOTRANSFERASE 27 U/L (12-78); ALBUMIN 2.7 g/dL (3.4-4.8); ASPARTATE AMINOTRANSFERASE 30 U/L (10-37); CALCIUM 9.1 mg/dL (8.4-11.0); CHLORIDE 96 mmol/L (98-107); CREATININE 0.71 mg/dL (0.55-1.30); GLUCOSE 336 mg/dL (70-99); SODIUM SERUM 134 mmol/L (136-145); TOTAL BILIRUBIN 0.4 mg/dL (0.0-1.0); UREA NITROGEN, BLOOD 30 mg/dL (8-21)
--- NOTE | 2021-11-28 08:50 | NUR ---
Dr. Bush at bedside, gave verbal updates. No new order given. Addendum: 11/28/21 at 1055 by Angy Jones RN Dr. Rojas at the unit.
--- NOTE | 2021-11-28 08:52 | NUR ---
Dr. Ortiz at bedside, gave verbal update. No new order given.
[2021-11-28] MEDS: DOCUSATE SODIUM 100 MG/10 ML UDC PO SCH (09:00)
--- NOTE | 2021-11-28 09:04 | NUR ---
Dr. Tse at bedside assessing the patient. No new order given.
[2021-11-28] MEDS: CHOLECALCIFEROL (VITAMIN D3) 5,000 UNIT TABLET PO SCH (09:07)
[2021-11-28] MEDS: ASCORBIC ACID 500 MG TABLET PO SCH ×2 (09:07→20:57)
[2021-11-28] MEDS: FUROSEMIDE 20 MG/2 ML VIAL IVP SCH (09:07)
[2021-11-28 10:30] LABS: ANION GAP 11 (5-15)
[2021-11-28 10:35] LABS: GFR AFRICAN AMERICAN 105 mL/min (>90)
[2021-11-28 11:11] LABS: C-REACTIVE PROTEIN QUANT < 0.2 mg/dL (0-0.5)
[2021-11-28] MEDS: MIDAZOLAM IN NACL,ISO-OSMOT/PF 100 ML IV PRN (12:27)
[2021-11-28] MEDS: MICAFUNGIN SODIUM 100 MG in NS 100 ML IV SCH (12:42)
[2021-11-28] MEDS: DEXAMETHASONE SOD PHOSPHATE 10 MG/ML VIAL IVP SCH (20:59)
[2021-11-28] MEDS: SENNA 8.8 MG/5 ML UDC NG SCH (21:00)
[2021-11-29] VITALS (26 sets, daily range): BP systolic 106–163
[2021-11-29] MEDS: THEOPHYLLINE ANHYDROUS 200 MG CAP.ER.24H PO SCH ×2 (02:20→06:00)
[2021-11-29] MEDS: INSULIN LISPRO SLIDING SCALE 100 UNITS/ML VIAL (humaLOG) SUBCUT PRN ×4 (02:32→18:17)
[2021-11-29 06:11] LABS: BASOPHILS # (AUTO) 0.1 K/uL (0.0-0.2); BASOPHILS % (AUTO) 0.8 % (0.0-2.0); EOSINOPHILS % (AUTO) 0.2 % (0.0-4.0); HEMOGLOBIN 11.6 g/dL (12.0-16.0); LYMPHOCYTES # (AUTO) 0.7 K/uL (1.0-5.5); LYMPHOCYTES % (AUTO) 5.7 % (20.5-51.5); MEAN CORPUSCULAR HEMOGLOBIN 28 pg (27-31); MEAN CORPUSCULAR HGB CONC 31 % (32-36); MEAN CORPUSCULAR VOLUME 88 fL (79.0-98.0); MONOCYTES # (AUTO) 0.3 K/uL (0.0-1.0); MONOCYTES % (AUTO) 2.7 % (1.7-9.3); NEUTROPHILS # (AUTO) 10.6 K/uL (1.8-7.7); NEUTROPHILS % (AUTO) 90.6 % (40.0-70.0); PLATELET COUNT (AUTO) 172 K/uL (130-430); RED BLOOD CELL COUNT(AUTO) 4.18 MIL/uL (4.2-6.2); RED CELL DISTRIBUTION WIDTH 18.1 % (9.0-15.0); WHITE BLOOD COUNT (AUTO) 11.7 K/uL (4.8-10.8)
[2021-11-29] MEDS: PROPOFOL DRIP 100 ML IV SCH ×3 (06:30→17:10)
[2021-11-29] MEDS: PIPERACILLIN/TAZO 4.5GM/DEX-IS 100 ML IV SCH ×3 (06:31→22:47)
[2021-11-29 06:36] LABS: ALBUMIN 2.9 g/dL (3.4-4.8); CALCIUM 9.2 mg/dL (8.4-11.0); CREATININE 0.8 mg/dL (0.55-1.30); POTASSIUM 3.7 mmol/L (3.5-5.1); TOTAL BILIRUBIN 0.4 mg/dL (0.0-1.0)
--- NOTE | 2021-11-29 07:35 | NUR ---
RT NOTES FIO2 to .45. Will monitor pt. RN aware.
--- NOTE | 2021-11-29 08:15 | NUR ---
INITIAL SHIFT REPORT RECEIVED FROM NIGHT RN FOR CONTINUATION OF CARE
[2021-11-29] MEDS ORDERED: NOREPINEPHRINE 4 MG/4 ML VIAL IV ONE (08:36)
[2021-11-29] MEDS: CHOLECALCIFEROL (VITAMIN D3) 5,000 UNIT TABLET PO SCH (08:59)
[2021-11-29] MEDS: DOCUSATE SODIUM 100 MG/10 ML UDC PO SCH (08:59)
[2021-11-29] MEDS: FUROSEMIDE 20 MG/2 ML VIAL IVP SCH (09:00)
[2021-11-29] MEDS: NOREPINEPHRINE BITARTRATE 4 MG in D5W 246 ML IV PRN (09:21)
[2021-11-29] MEDS: ASCORBIC ACID 500 MG TABLET PO SCH ×2 (09:22→21:00)
--- NOTE | 2021-11-29 11:14 | NUR ---
RT NOTES FIO2 to 0.40 per titration order. will monitor pt. rn aware. Will endorse care to oncoming RT>
[2021-11-29] MEDS: MICAFUNGIN SODIUM 100 MG in NS 100 ML IV SCH (12:09)
--- NOTE | 2021-11-29 13:05 | NUR ---
MD ASSESSED MD CROSS ASSESSED PT & ORDERED TO WEAN OFF SEDATION MUCH POSSIBLE.
--- NOTE | 2021-11-29 14:23 | NUR ---
UPDATED TRIED TO WEAN PT OFF PROPOFOL & VERSED DRIPS. PT WAS ABLE TO TOLERATE FOR ABOUT [id number]. PT 'S RR ELEVATED, SAT O2 <90%, HR INCREASED. PUT PT BACK TO PROPOFOL 30 mcg & versed 3ml/hr
--- NOTE | 2021-11-29 19:37 | NUR ---
ENDORSEMENT END OF SHIFT REPORT GIVEN TO NIGHT RN FOR CONTINUATION OF CARE
[2021-11-29] MEDS: SENNA 8.8 MG/5 ML UDC NG SCH (21:00)
[2021-11-29] MEDS ORDERED: SULFAMET 800MG/TMP 160MG, 20 ML UDBTL GT SCH (21:00)
[2021-11-29] MEDS: DEXAMETHASONE SOD PHOSPHATE 10 MG/ML VIAL IVP SCH (22:53)
[2021-11-30] VITALS (24 sets, daily range): BP systolic 100–167
[2021-11-30] MEDS: INSULIN LISPRO SLIDING SCALE 100 UNITS/ML VIAL (humaLOG) SUBCUT PRN ×4 (00:42→18:23)
[2021-11-30] MEDS: THEOPHYLLINE ANHYDROUS 200 MG CAP.ER.24H PO SCH ×6 (01:30→21:00)
[2021-11-30] MEDS: PROPOFOL DRIP 100 ML IV SCH ×2 (01:33→10:20)
--- NOTE | 2021-11-30 05:21 | NUR ---
Receive full bedside report from AM RN patient the patient is a 66 year old F, Sedated and Vented. With an admitting Dx of Acute respiratory failure, sepsis and hypoxia, Covid PNA, CHF Patient is still on isolation due to Covid. HOB elevated to prevent aspiration, side rails up X2 and bed brakes in an on position. The vent settings of A/c 16, AV of 450, FiO2 40% Peep of 5. She is unable to make her need known. Patient with a R upper arm PICC line 2L. She is on Levo, Verset, Propofol. Notice patient with both upper and lower extremities edema. With sacral coccyx redness. Feeding tube in place, feeding running at 45cc/ hr and it is the goal at this time. Patient is not alert and only response to pain stimuli. Feeding tube placement confirmed and residual noted. Tube feeding placement comfirned. Abdomen soft and non distended, bowel sound present in all 4Q. All need anticipated. Kept clean dry and comfortable. Call light with in reach at all times. All abnormal lab reported to provider Good oral care provided Q2hrs and PRN. Patient is still on ATB therapy and tolerating well. Would informed the AM nurse that the patient had 3 loose BM and she may ask the provider to old stool softener. Was able to provide a partial bed bath and patient tolerated well. All needs anticipated. Patient is still on Keppra no s/s of seizures noted at this time. No blood thinners given during me shift. Was able to provided patient a another bath, a full bed bad due her having an additional very soft BM. Still following all isolation precaution due to covid, per facility protocol and patient is tolerating well. Turned and reposition Q2hrs and prn. No s/s of bleeding noted or acute distress. No change LOC noted during my shift. All due Meds given as order with no a/r noted at this time. Kept clean dry and comfortable and all need anticipated Side rails up X2, brake in an on position and HOB elevated, turned and reposition Q2 hrs and PRN. No s/s of acute distress. Patient still resting in bed and unable to respond to command. No s/s of distress or pain noted at this time. Tolerating the feeding well. No fever, no n/v noted during shift. Good oral care provided Q2hrs and PRN Call light with in reach at all times. Kept clean dry and comfortable No acute distress noted during the shift
[2021-11-30] MEDS: PIPERACILLIN/TAZO 4.5GM/DEX-IS 100 ML IV SCH ×3 (06:18→21:00)
--- NOTE | 2021-11-30 07:48 | NUR ---
INITIAL SHIFT REPORT RECEIVED FROM NIGHT RN FOR CONTINUATION OF CARE
[2021-11-30] MEDS: CHOLECALCIFEROL (VITAMIN D3) 5,000 UNIT TABLET PO SCH (08:23)
[2021-11-30] MEDS: ASCORBIC ACID 500 MG TABLET PO SCH ×2 (08:24→21:00)
[2021-11-30] MEDS: FUROSEMIDE 20 MG/2 ML VIAL IVP SCH (08:25)
[2021-11-30] MEDS: SULFAMET 800MG/TMP 160MG, 20 ML UDBTL GT SCH ×2 (08:28→21:00)
[2021-11-30] MEDS: DOCUSATE SODIUM 100 MG/10 ML UDC PO SCH (08:31)
[2021-11-30] MEDS: MICAFUNGIN SODIUM 100 MG in NS 100 ML IV SCH (13:18)
[2021-11-30] MEDS: MIDAZOLAM IN NACL,ISO-OSMOT/PF 100 ML IV PRN (13:20)
--- NOTE | 2021-11-30 13:45 | NUR ---
UPDATE DRIP MS CROSS ASSESSED & ORDERED PRECEDEX DRIP & TO TITRATE OFF PROPOFOL
--- NOTE | 2021-11-30 14:00 | NUR ---
Nutrition F/U Admitting Diagnosis: COVID, pneumonia Medical History Comment: COVID-19 per physician notes 11/19 MD notes: Sepsis, COPD Pt also found w/ sepsis per physician notes SARS-CoV-2 Ag (Rapid) Positive 11/14 Subjective Information: RD bedside visit deferred d/t airborne isolation c/w COVID. RD rounded to ICU and spoke w/ pt's primary RN outside of pt's room. RD witnessed TF Vital AF 1.2 running at 40 ml/hr -- RD relayed goal rate of 45 ml/hr per physician order. RN reported that pt has been tolerating TF well, minimal GRV, and BM x2 during prior recycling operator was reported to her. Per EMR review, TF Rate: 45 ml 11/30; GRV: 11/30; TF Intakes: 180 ml 11/30; abd is soft and non-distended w/ active bowel sounds; last BM x1 11/23; Fred scale: 10, no PIs noted; no current edema noted. Pt may benefit from increase in TF goal rate to better meet nutritional demands and prevent wt loss/malnutrition. Current Diet Order/Nutrition Support: Vital AF 1.2 at 45 ml/hr (goal), Free Water Flush: 200 ml Q6H via OGT x14 days Pertinent Medications: propofol at 9.9 ml/hr (261 kcal/day), zinc, VIT D3, VIT C, decadron, senna liquid, SSI, colace liquid, lasix, heparin, haldol Pertinent Labs: POC BG 180 H; 11/29: BG 327 H, BUn 29 H, WBC 11.7 H Height (Feet) 5 feet Height (Inches) 4.00 inches Weight (Pounds) 182 pounds -- stable since 11/16 Weight (Calculated Kilograms) 82.105444 kilograms Patient Weight 82.554 kg Body Mass Index 31.24 kg/m2 %IBW 152 [place]/Adjusted Body Weight 120#/55 kg. 136#/62 kg Weight Status Obese NEW Estimated Energy Expenditure (kcals/day) 2008 (PSU 2009 d/t criticall illness on vent; Ve: 15.7; Tmax: 36.9'C) Estimated Protein Required (g/day) 83-110 (1.5-2 gm/kg IBW d/t obesity, sepsis) Estimated Fluid Required (l/day) 1.7 (1 ml/kcal/day for maintenance) Problem/Etiology/Signs/Symptoms Increased nutritional needs R/T metabolic demands AEB estimated nutritional requirements for sepsis. (*ongoing) Altered nutrition-related labs R/T compromised endocrine function AEB elevated BG/POC BG lab values. (*new) Expected Outcomes/Goals - Monitor EN tolerance and intake w/ goal of pt meeting >80% of estimated nutritional needs, labs trending WNL, normal GI function, and skin integrity/wt maintenance Dietitian Recommendations * Continue Vital AF 1.2 at 60 ml/hr (goal rate), Free Water Flush: 200 ml Q6h via OGT Provides (w/ current propofol rate): 1989 kcal/day, 108 gm protein/day, and 1968 ml free water/day Meets: 99% of estimated caloric needs and 98% of upper end of estimated protein needs * Consider modifying insulin coverage d/t elevated BG control Follow Up High Risk: F/U in 2-3 days
--- NOTE | 2021-11-30 14:05 | NUR ---
Dietitian Recommendations * Continue Vital AF 1.2 at 60 ml/hr (goal rate), Free Water Flush: 200 ml Q6h via OGT Provides (w/ current propofol rate): 1989 kcal/day, 108 gm protein/day, and 1968 ml free water/day Meets: 99% of estimated caloric needs and 98% of upper end of estimated protein needs * Consider modifying insulin coverage d/t elevated BG control LP, RD Please refer to Nutrition F/U for details.
--- NOTE | 2021-11-30 15:05 | NUR ---
FAMILY FAMILY VISITED. ALL QUESTIONS ANSWERED TO DAUGHTER ZAHRA & LIOR
[2021-11-30] MEDS: DEXMEDETOMIDINE HCL 400 MCG in NS 96 ML IV PRN (17:20)
--- NOTE | 2021-11-30 18:30 | NUR ---
PRECEDEX DRIP Started precedex drip; pt's HR dropped from 50 -68; also started levophed drip as pt's SBP is in the low 80. Titrated off propofol. endorsed to night RN to continue care & monitor. Will updated md as necessary
--- NOTE | 2021-11-30 19:40 | NUR ---
endorsement end of shift report given to night rn for continuation of care
[2021-11-30] MEDS: DEXAMETHASONE SOD PHOSPHATE 10 MG/ML VIAL IVP SCH (21:00)
[2021-11-30] MEDS: SENNA 8.8 MG/5 ML UDC NG SCH (21:00)
[2021-12-01] VITALS (28 sets, daily range): BP systolic 96–171
[2021-12-01] MEDS: INSULIN LISPRO SLIDING SCALE 100 UNITS/ML VIAL (humaLOG) SUBCUT PRN ×4 (02:29→18:34)
[2021-12-01] MEDS: PIPERACILLIN/TAZO 4.5GM/DEX-IS 100 ML IV SCH ×3 (06:20→23:39)
[2021-12-01] MEDS: THEOPHYLLINE ANHYDROUS 200 MG CAP.ER.24H PO SCH ×4 (06:20→23:40)
[2021-12-01] MEDS: CHOLECALCIFEROL (VITAMIN D3) 5,000 UNIT TABLET PO SCH (08:58)
[2021-12-01] MEDS: ASCORBIC ACID 500 MG TABLET PO SCH ×2 (08:58→20:35)
[2021-12-01] MEDS: FUROSEMIDE 20 MG/2 ML VIAL IVP SCH (08:59)
[2021-12-01] MEDS: DOCUSATE SODIUM 100 MG/10 ML UDC PO SCH (09:00)
[2021-12-01] MEDS: SULFAMET 800MG/TMP 160MG, 20 ML UDBTL GT SCH ×2 (09:00→20:35)
--- NOTE | 2021-12-01 10:00 | NUR ---
Dr Tse was in to see pt, the night miranda had stop versed drip and diprivan drip due to verbal order from morning nurse Judith RN that Dr Tse wanted pt off all sedation for placement of a peg tube, when Dr. Tse can in pt's rr was in the 30's b/p elevated and she was utilizing her accessory muscle even though the pt is on a vent. Dr Tse stated pt can go back on her sedation due to her resp. status
--- NOTE | 2021-12-01 12:15 | NUR ---
this pt's daughter called r/t her status and she stated if the pt was still on her sedations because the nurse told her she wasn't this casualty underwriter explained that the pt was placed back onto her sedations per Dr Tse and that the pt isn't due for pegtube placement and trach until Thursday. She stated that the doctors didn't see her mother at all yesterday and who gave them permission for this, I explained if there is no consent then no operation will be performed, within 2 minutes I received calls from about four members claiming if this pt get surgery without their permission they will pam and where are the doctors who decided to do this because they all were here yesterday and they saw no doctors.They were very discourteous and impolite to this casualty underwriter. Dr Cali called related to this patient and he stated he received an emergency call for this pt even though this casualty underwriter didn't call him but I did explained to him what was going on and he stated okay the pt will have nothing done to her.
[2021-12-01] MEDS: PROPOFOL DRIP 100 ML IV SCH ×2 (12:34→18:31)
[2021-12-01] MEDS: DEXMEDETOMIDINE HCL 400 MCG in NS 96 ML IV PRN ×2 (12:36→18:33)
--- NOTE | 2021-12-01 19:15 | NUR ---
SBAR report received from day RN, all cares assumed. Pt intubated, sedated. Vent settings: AC 26, 450, 40%, 5.
[2021-12-01] MEDS: SENNA 8.8 MG/5 ML UDC NG SCH (20:35)
[2021-12-01] MEDS: DEXAMETHASONE SOD PHOSPHATE 10 MG/ML VIAL IVP SCH (20:36)
[2021-12-02] VITALS (24 sets, daily range): BP systolic 93–155
[2021-12-02] MEDS: INSULIN LISPRO SLIDING SCALE 100 UNITS/ML VIAL (humaLOG) SUBCUT PRN ×5 (00:02→23:30)
[2021-12-02 06:45] LABS: BASOPHILS # (AUTO) 0.1 K/uL (0.0-0.2); BASOPHILS % (AUTO) 0.7 % (0.0-2.0); EOSINOPHILS % (AUTO) 0.4 % (0.0-4.0); HEMATOCRIT 37.1 % (36-48); HEMOGLOBIN 11.9 g/dL (12.0-16.0); LYMPHOCYTES # (AUTO) 1.1 K/uL (1.0-5.5); LYMPHOCYTES % (AUTO) 10.1 % (20.5-51.5); MEAN CORPUSCULAR HEMOGLOBIN 28 pg (27-31); MEAN CORPUSCULAR HGB CONC 32 % (32-36); MEAN CORPUSCULAR VOLUME 88 fL (79.0-98.0); MONOCYTES # (AUTO) 0.6 K/uL (0.0-1.0); MONOCYTES % (AUTO) 5.2 % (1.7-9.3); NEUTROPHILS # (AUTO) 9.3 K/uL (1.8-7.7); NEUTROPHILS % (AUTO) 83.6 % (40.0-70.0); PLATELET COUNT (AUTO) 168 K/uL (130-430); RED BLOOD CELL COUNT(AUTO) 4.24 MIL/uL (4.2-6.2); RED CELL DISTRIBUTION WIDTH 18.7 % (9.0-15.0); WHITE BLOOD COUNT (AUTO) 11.1 K/uL (4.8-10.8)
[2021-12-02] MEDS: THEOPHYLLINE ANHYDROUS 200 MG CAP.ER.24H PO SCH ×4 (06:51→23:25)
[2021-12-02] MEDS: PIPERACILLIN/TAZO 4.5GM/DEX-IS 100 ML IV SCH ×3 (06:51→21:14)
[2021-12-02 07:03] LABS: ALBUMIN 2.9 g/dL (3.4-4.8); CALCIUM 9.2 mg/dL (8.4-11.0); CREATININE 0.74 mg/dL (0.55-1.30); TOTAL BILIRUBIN 0.6 mg/dL (0.0-1.0)
[2021-12-02] MEDS: SULFAMET 800MG/TMP 160MG, 20 ML UDBTL GT SCH (08:44)
[2021-12-02] MEDS: DOCUSATE SODIUM 100 MG/10 ML UDC PO SCH (08:45)
[2021-12-02] MEDS: ASCORBIC ACID 500 MG TABLET PO SCH ×2 (08:45→21:13)
[2021-12-02] MEDS: FUROSEMIDE 20 MG/2 ML VIAL IVP SCH (08:46)
[2021-12-02] MEDS: CHOLECALCIFEROL (VITAMIN D3) 5,000 UNIT TABLET PO SCH (08:46)
--- NOTE | 2021-12-02 12:29 | NUR ---
PAGED FOR ORDERS SPOKE TO: ELLEN
--- NOTE | 2021-12-02 18:35 | NUR ---
pt heart rate was in the 40's and 50's Dr Frey was called he discontinue percedex iv drip and wanted to start theophylilline on this patient but she is already getting this medication with effect
--- NOTE | 2021-12-02 19:02 | NUR ---
report given to incoming nurse all questions answered pt condition remains stable
[2021-12-02] MEDS: DEXAMETHASONE SOD PHOSPHATE 10 MG/ML VIAL IVP SCH (21:14)
[2021-12-02] MEDS: SENNA 8.8 MG/5 ML UDC NG SCH (21:14)
[2021-12-03] VITALS (22 sets, daily range): BP systolic 88–201
[2021-12-03] MEDS: NOREPINEPHRINE BITARTRATE 4 MG in NS 246 ML IV PRN ×2 (01:06→21:08)
[2021-12-03] MEDS: THEOPHYLLINE ANHYDROUS 200 MG CAP.ER.24H PO SCH ×4 (05:02→23:19)
[2021-12-03] MEDS: PIPERACILLIN/TAZO 4.5GM/DEX-IS 100 ML IV SCH ×3 (05:03→21:12)
[2021-12-03] MEDS: PROPOFOL DRIP 100 ML IV SCH ×3 (05:05→20:03)
[2021-12-03 05:56] LABS: BASOPHILS # (AUTO) 0.1 K/uL (0.0-0.2); BASOPHILS % (AUTO) 0.6 % (0.0-2.0); EOSINOPHILS % (AUTO) 0.2 % (0.0-4.0); HEMATOCRIT 36.4 % (36-48); LYMPHOCYTES # (AUTO) 0.9 K/uL (1.0-5.5); LYMPHOCYTES % (AUTO) 7.9 % (20.5-51.5); MEAN CORPUSCULAR HEMOGLOBIN 29 pg (27-31); MEAN CORPUSCULAR HGB CONC 33 % (32-36); MEAN CORPUSCULAR VOLUME 87 fL (79.0-98.0); MONOCYTES # (AUTO) 0.3 K/uL (0.0-1.0); NEUTROPHILS # (AUTO) 10.1 K/uL (1.8-7.7); NEUTROPHILS % (AUTO) 88.3 % (40.0-70.0); PLATELET COUNT (AUTO) 176 K/uL (130-430); RED BLOOD CELL COUNT(AUTO) 4.19 MIL/uL (4.2-6.2); RED CELL DISTRIBUTION WIDTH 18.2 % (9.0-15.0); WHITE BLOOD COUNT (AUTO) 11.5 K/uL (4.8-10.8)
[2021-12-03 06:57] LABS: ALBUMIN 2.8 g/dL (3.4-4.8); CALCIUM 9.1 mg/dL (8.4-11.0); CREATININE 0.81 mg/dL (0.55-1.30); POTASSIUM 4.2 mmol/L (3.5-5.1); TOTAL BILIRUBIN 0.5 mg/dL (0.0-1.0)
[2021-12-03] MEDS: FUROSEMIDE 20 MG/2 ML VIAL IVP SCH (08:40)
[2021-12-03] MEDS: CHOLECALCIFEROL (VITAMIN D3) 5,000 UNIT TABLET PO SCH (08:41)
[2021-12-03] MEDS: ASCORBIC ACID 500 MG TABLET PO SCH ×2 (08:41→21:08)
[2021-12-03] MEDS: SULFAMET 800MG/TMP 160MG, 20 ML UDBTL GT SCH ×3 (08:41→21:08)
[2021-12-03] MEDS: DOCUSATE SODIUM 100 MG/10 ML UDC PO SCH (08:41)
[2021-12-03] MEDS: INSULIN LISPRO SLIDING SCALE 100 UNITS/ML VIAL (humaLOG) SUBCUT PRN ×2 (12:12→18:41)
--- NOTE | 2021-12-03 12:19 | NUR ---
dr lugo in to see pt was told pt's daughter wants the attending physicians on the case of her father to call her. dr lugo stated he called at 1215 but no answered. this process description writer called and a man answered stating he was a friend of the pt's daughter whom name is lindy but she wasn't there and he was just a backup call in case something happens to the patient and that the daughter has no real number to be reach Addendum: 12/03/21 at 1224 by Jeff Granados RN note written on the wrong pt
[2021-12-03] MEDS: SENNA 8.8 MG/5 ML UDC NG SCH (21:08)
[2021-12-03] MEDS: DEXAMETHASONE SOD PHOSPHATE 10 MG/ML VIAL IVP SCH (21:23)
[2021-12-03] MEDS ORDERED: PIPERACILLIN/TAZOBACTAM 4.5 GM/VIAL (ZOSYN) IV ONE (21:57)
[2021-12-04] VITALS (27 sets, daily range): BP systolic 110–163
[2021-12-04] MEDS: PROPOFOL DRIP 100 ML IV SCH ×3 (00:11→12:27)
[2021-12-04] MEDS: THEOPHYLLINE ANHYDROUS 200 MG CAP.ER.24H PO SCH ×4 (05:07→23:18)
[2021-12-04] MEDS: PIPERACILLIN/TAZO 4.5GM/DEX-IS 100 ML IV SCH (05:07)
[2021-12-04] MEDS: INSULIN LISPRO SLIDING SCALE 100 UNITS/ML VIAL (humaLOG) SUBCUT PRN ×3 (05:22→17:34)
[2021-12-04 07:12] LABS: BASOPHILS # (AUTO) 0.1 K/uL (0.0-0.2); BASOPHILS % (AUTO) 0.6 % (0.0-2.0); EOSINOPHILS % (AUTO) 0.4 % (0.0-4.0); HEMATOCRIT 38.3 % (36-48); HEMOGLOBIN 12.6 g/dL (12.0-16.0); LYMPHOCYTES # (AUTO) 0.9 K/uL (1.0-5.5); LYMPHOCYTES % (AUTO) 9.3 % (20.5-51.5); MEAN CORPUSCULAR HEMOGLOBIN 29 pg (27-31); MEAN CORPUSCULAR HGB CONC 33 % (32-36); MEAN CORPUSCULAR VOLUME 88 fL (79.0-98.0); MONOCYTES # (AUTO) 0.5 K/uL (0.0-1.0); MONOCYTES % (AUTO) 5.3 % (1.7-9.3); NEUTROPHILS # (AUTO) 8.4 K/uL (1.8-7.7); NEUTROPHILS % (AUTO) 84.4 % (40.0-70.0); PLATELET COUNT (AUTO) 173 K/uL (130-430); RED BLOOD CELL COUNT(AUTO) 4.34 MIL/uL (4.2-6.2); RED CELL DISTRIBUTION WIDTH 18.1 % (9.0-15.0)
[2021-12-04 08:15] LABS: ALBUMIN 3.1 g/dL (3.4-4.8); CREATININE 0.66 mg/dL (0.55-1.30); POTASSIUM 3.7 mmol/L (3.5-5.1); TOTAL BILIRUBIN 0.5 mg/dL (0.0-1.0)
[2021-12-04] MEDS: FUROSEMIDE 20 MG/2 ML VIAL IVP SCH (08:59)
[2021-12-04] MEDS: DOCUSATE SODIUM 100 MG/10 ML UDC PO SCH (08:59)
[2021-12-04] MEDS: ASCORBIC ACID 500 MG TABLET PO SCH ×2 (09:00→21:44)
[2021-12-04] MEDS: SULFAMET 800MG/TMP 160MG, 20 ML UDBTL GT SCH ×2 (09:00→21:43)
[2021-12-04] MEDS: CHOLECALCIFEROL (VITAMIN D3) 5,000 UNIT TABLET PO SCH (09:00)
--- NOTE | 2021-12-04 18:54 | NUR ---
report given to incoming nurse all questions answered pt condition remains stable no longer on levophed shut off at 0715 r/t b/p elevated and map over 60. pt is due to be npo after midnoc no tubefeeding after 12 midnoc due for surgery in the am incoming nurse is made aware.
[2021-12-04] MEDS: SENNA 8.8 MG/5 ML UDC NG SCH (21:43)
[2021-12-04] MEDS: DEXAMETHASONE SOD PHOSPHATE 10 MG/ML VIAL IVP SCH (21:43)
--- NOTE | 2021-12-04 22:51 | NUR ---
DR. BHANDARI SECOND PAGE OUT TO AT THIS TIME. SPOKE WITH JEFF AT THE EXCHANGE.
[2021-12-05] VITALS (27 sets, daily range): BP systolic 119–160
[2021-12-05] MEDS: THEOPHYLLINE ANHYDROUS 200 MG CAP.ER.24H PO SCH ×4 (05:35→23:20)
[2021-12-05 07:30] LABS: BASOPHILS # (AUTO) 0.1 K/uL (0.0-0.2); BASOPHILS % (AUTO) 0.3 % (0.0-2.0); EOSINOPHILS # (AUTO) 0.6 K/uL (0.0-0.4); EOSINOPHILS % (AUTO) 2.5 % (0.0-4.0); HEMOGLOBIN 14.2 g/dL (12.0-16.0); LYMPHOCYTES # (AUTO) 0.4 K/uL (1.0-5.5); LYMPHOCYTES % (AUTO) 1.8 % (20.5-51.5); MEAN CORPUSCULAR HEMOGLOBIN 29 pg (27-31); MEAN CORPUSCULAR HGB CONC 32 % (32-36); MEAN CORPUSCULAR VOLUME 89 fL (79.0-98.0); MONOCYTES # (AUTO) 0.2 K/uL (0.0-1.0); NEUTROPHILS # (AUTO) 23.5 K/uL (1.8-7.7); NEUTROPHILS % (AUTO) 94.4 % (40.0-70.0); PLATELET COUNT (AUTO) 189 K/uL (130-430); RED BLOOD CELL COUNT(AUTO) 4.96 MIL/uL (4.2-6.2); RED CELL DISTRIBUTION WIDTH 19.3 % (9.0-15.0); WHITE BLOOD COUNT (AUTO) 24.9 K/uL (4.8-10.8)
--- NOTE | 2021-12-05 07:47 | NUR ---
MORNING ROUNDS: ON COVID ISOLATION PRECAUTION.RECEIVED PATIENT ON A VENT.WITH FIO2=40%,WITH GOOD SATURATION.PT IS SEDATED.VITAL SIGNS ,STABLE.RIGHT UPPER ARM PICC LINE ,VERSED AT 1MG/ML,PROPOFOL @ 35MCG/KG/MIN.NS TO TKO.LEFT FOREARM IV SALINE LOCK.TUBE FEED ON HOLD,NPO SINCE MIDNIGHT.SCHEDULED TODAY FOR TRACH/PEG PLACEMENT.NAVARRO DRAINING TO MARIA TERESA URINE.CONTINUE TO MONITOR CLOSELY.
[2021-12-05 07:50] LABS: CALCIUM 9.9 mg/dL (8.4-11.0); CREATININE 0.78 mg/dL (0.55-1.30); POTASSIUM 4.5 mmol/L (3.5-5.1); TOTAL BILIRUBIN 0.4 mg/dL (0.0-1.0)
[2021-12-05] MEDS: PROPOFOL DRIP 100 ML IV PRN ×2 (08:54→16:24)
[2021-12-05] MEDS: FUROSEMIDE 20 MG/2 ML VIAL IVP SCH (08:56)
[2021-12-05] MEDS: CHOLECALCIFEROL (VITAMIN D3) 5,000 UNIT TABLET PO SCH (09:00)
[2021-12-05] MEDS: ASCORBIC ACID 500 MG TABLET PO SCH ×2 (09:00→23:17)
[2021-12-05] MEDS: SULFAMET 800MG/TMP 160MG, 20 ML UDBTL GT SCH ×2 (09:00→23:15)
[2021-12-05] MEDS: DOCUSATE SODIUM 100 MG/10 ML UDC PO SCH (09:00)
[2021-12-05] MEDS: FLUCONAZOLE 200 mg/ NS 100 ML IV SCH (12:34)
--- NOTE | 2021-12-05 16:30 | NUR ---
ANESTHESIA CAME: SPOKE WITH PT'S GRANDDAUGHTER REGARDING INCREASED HR,NEEDS CARDIAC CLEARANCE.WITH ORDERS FOR RAPID TESTING. Addendum: 12/05/21 at 1718 by Pam Son RN ADDED NOTES: DR KUNZ OBTAINED ANESTHESIA CONSENT TO PT'S GRAND DAUGHTER WITH THE PT'S DAUGHTER ZAHRA ON THE PHONE CONSENTING TO SIGNED THE CONSENT.IF HR STABLE WILL PROCEED TO SURGERY.
[2021-12-05] MEDS ORDERED: METOPROLOL TARTRATE 5 MG/5 ML AMPUL IVP ONE (16:45)
[2021-12-05] MEDS ORDERED: METOPROLOL TARTRATE 5 MG/5 ML AMPUL ONE (16:50)
--- NOTE | 2021-12-05 16:50 | NUR ---
CARDIO PAGED: MARGI MOTA SPOKE TO DR BHANDARI AND ORDERS GIVEN.PATIENT IS CLEARED FOR SURGERY BY CARDIO PER MARGI PANCHAL NURSE.
--- NOTE | 2021-12-05 16:56 | NUR ---
LOPRESSOR IV: LOPRESSOR 2.5MG IVP GIVEN ORDERED BY DR BHANDARI FOR PN=[id number].
--- NOTE | 2021-12-05 17:14 | NUR ---
Nutrition F/U Admitting Diagnosis: COVID, pneumonia Medical History Comment: COVID-19 per physician notes 11/19 MD notes: Sepsis, COPD Pt also found w/ sepsis per physician notes SARS-CoV-2 Ag (Rapid) Positive 11/14 Subjective Information: RD bedside visit deferred d/t airborne isolation c/w COVID. RD rounded to ICU, spoke w/ pt's primary RN who confirmed that is pending trach/PEG placement. She also stated that pt has an abrasion to back area. Per EMR review, TF Rate: 0 ml 12/05; GRV: 0 ml 12/05; TF Intakes: 90 ml 12/05; abd is soft and non-distended w/ active bowel sounds; last BM x2 12/04; Fred scale: 13, no PIs noted. Pt is not yet meeting nutritional needs. Consider resuming TF via GT if/when medically appropriate. Current Diet Order/Nutrition Support: Vital AF 1.2 at 60 ml/hr (goal), Free Water Flush: 200 ml Q6H via OGT x4 days & NPO x0 days Pertinent Medications: propofol at 1.7336 ml/hr (458 kcal/day), decadron, senna liquid, SSI, colace liquid, lasix, haldol Pertinent Labs: Na 135 L, BG 235 H, POC BG 206 H, BUN 23 H, WBC 24.9 H Height (Feet) 5 feet Height (Inches) 4.00 inches Weight (Pounds) 182 pounds -- stable since 11/16 Weight (Calculated Kilograms) 82.798427 kilograms Patient Weight 82.554 kg Body Mass Index 31.24 kg/m2 %IBW 152 [place]/Adjusted Body Weight 120#/55 kg. 136#/62 kg Weight Status Obese NEW Estimated Energy Expenditure (kcals/day) 1766 ([facility]U 2009 d/t criticall illness on vent; Ve: 12.3; Tmax: 36.6'C) Estimated Protein Required (g/day) 83-110 (1.5-2 gm/kg IBW d/t obesity, sepsis) NEW Estimated Fluid Required (l/day) 1.8 (1 ml/kcal/day for maintenance) Problem/Etiology/Signs/Symptoms Increased nutritional needs R/T metabolic demands AEB estimated nutritional requirements for sepsis. (*ongoing) Altered nutrition-related labs R/T compromised endocrine function AEB elevated BG/POC BG lab values. (*new) Expected Outcomes/Goals - Monitor EN tolerance and intake w/ goal of pt meeting >80% of estimated nutritional needs, labs trending WNL, normal GI function, and skin integrity/wt maintenance Dietitian Recommendations * Consider resuming TF if/when medically appropriate: Vital AF 1.2 at 40 ml/hr (goal rate) -OR- bolus feed 240 ml Q6h (960 ml/day), Free Water Flush: 200 ml Q6h via OGT Provides (w/ current propofol rate): 1610 kcal/day, 72 gm protein/day, and 1579 ml free water/day Meets: 91% of estimated caloric needs and 87% of lower end of estimated protein needs Follow Up High Risk: F/U in 2-3 days
--- NOTE | 2021-12-05 17:19 | NUR ---
RECHECK HR: HR = 98-101 AFTER LOPRESSOR IV WAS GIVEN.
--- NOTE | 2021-12-05 17:20 | NUR ---
Dietitian Recommendations * Consider resuming TF if/when medically appropriate: Vital AF 1.2 at 40 ml/hr (goal rate) -OR- bolus feed 240 ml Q6h (960 ml/day), Free Water Flush: 200 ml Q6h via OGT Provides (w/ current propofol rate): 1610 kcal/day, 72 gm protein/day, and 1579 ml free water/day Meets: 91% of estimated caloric needs and 87% of lower end of estimated protein needs LP, RD Please refer to Nutrition F/U for details.
--- NOTE | 2021-12-05 17:33 | NUR ---
ANESTHESIA ORDER: SPOKE WITH DR KUNZ WITH ORDERS FOR PT/INR AND PTT STAT AND CALLED FOR ALL RESULTS TO DR KUNZ'S PHONE NUMBER [phone].
[2021-12-05] MEDS ORDERED: LR 1,000 ML IV.SOLN IV ONE (18:06)
[2021-12-05] MEDS ORDERED: SEVOFLURANE 15 MIN GAS INH ONE (18:06)
[2021-12-05] MEDS ORDERED: ROCURONIUM BROMIDE 10 MG/ML (ZEMURON) IV ONE (18:06)
[2021-12-05] MEDS ORDERED: ONDANSETRON HCL 4 MG/2 ML VIAL IVP ONE (18:06)
[2021-12-05] MEDS ORDERED: LIDOCAINE 1% 10 MG/ML, 50 ML MDV INJ ONE (18:06)
[2021-12-05 18:22] LABS: INR 1.1 (0.8-1.2); PROTHROMBIN TIME 10.7 SECS (9.5-12.5)
--- NOTE | 2021-12-05 18:30 | NUR ---
TO OR: TO OR PER JAYNE BY OR STAFF,AMBU BAGGED BY RT IN GOING TO OR.PT ON TRANSPORT RFID TECHNICIAN.REPORT GIVEN. STOPPED VERSED AND PROPOFOL DURING TRANSFER,IV TO SALINE LOCK.NOT IN ANY DISTRESS.
[2021-12-05] MEDS ORDERED: fentaNYL CITRATE/PF 100 MCG/2 ML AMP IVP PRN ×2 (18:45)
--- NOTE | 2021-12-05 19:06 | NUR ---
RN NOTES PATIENT HERE FROM OR POST TRACHE. TRACHEOSTOMY TO VENT ON AC 26, VT 450, FIO2 100%, PEEP 5. VITAL SIGNS CHECKED AND RECORDED, SEE FREQUENT VITAL SIGN SHEET. SCOPE SHOW SINUS TACHYCARDIA. WILL CLOSELY MONITOR.
--- NOTE | 2021-12-05 19:19 | NUR ---
END OF SHIFT: PATIENT WAS BACK FROM OR.WITH RT AMBU BAGGING PATIENT TO THE ROOM. SEDATED.RT HOOK BACK PT TO VENT WITH SAME FIO2=40%. TRACH WAS PLACED,WITH SMALL BLOOD STAINED ON THE SITE. S/P G TUBE PLACED AND SITE DRESSING CLEAN AND DRY.WILL ENDORSED TO NIGHT NURSE PT WITH FIO2=93%.PT UNDER GENERAL ANESTHESIA PER DR KUNZ.PT STILL FOR RECOVERY POST OP VITAL SIGNS ROUTINE.
[2021-12-05] MEDS: SENNA 8.8 MG/5 ML UDC NG SCH (23:16)
[2021-12-05] MEDS: DEXAMETHASONE SOD PHOSPHATE 10 MG/ML VIAL IVP SCH (23:18)
[2021-12-06] VITALS (31 sets, daily range): BP systolic 94–141
[2021-12-06] MEDS: INSULIN LISPRO SLIDING SCALE 100 UNITS/ML VIAL (humaLOG) SUBCUT PRN ×3 (00:48→19:57)
[2021-12-06] MEDS: PROPOFOL DRIP 100 ML IV PRN (01:03)
[2021-12-06] MEDS ORDERED: METOPROLOL TARTRATE 5 MG/5 ML AMPUL ONE (02:21)
[2021-12-06] MEDS: THEOPHYLLINE ANHYDROUS 200 MG CAP.ER.24H PO SCH ×3 (06:28→19:30)
[2021-12-06 06:46] LABS: BASOPHILS # (AUTO) 0.1 K/uL (0.0-0.2); BASOPHILS % (AUTO) 0.3 % (0.0-2.0); EOSINOPHILS # (AUTO) 1.5 K/uL (0.0-0.4); EOSINOPHILS % (AUTO) 6.9 % (0.0-4.0); HEMATOCRIT 42.9 % (36-48); HEMOGLOBIN 13.9 g/dL (12.0-16.0); LYMPHOCYTES # (AUTO) 0.4 K/uL (1.0-5.5); LYMPHOCYTES % (AUTO) 1.8 % (20.5-51.5); MEAN CORPUSCULAR HEMOGLOBIN 29 pg (27-31); MEAN CORPUSCULAR HGB CONC 32 % (32-36); MEAN CORPUSCULAR VOLUME 89 fL (79.0-98.0); MONOCYTES # (AUTO) 0.4 K/uL (0.0-1.0); MONOCYTES % (AUTO) 1.6 % (1.7-9.3); NEUTROPHILS # (AUTO) 19.3 K/uL (1.8-7.7); NEUTROPHILS % (AUTO) 89.4 % (40.0-70.0); PLATELET COUNT (AUTO) 185 K/uL (130-430); RED BLOOD CELL COUNT(AUTO) 4.81 MIL/uL (4.2-6.2); RED CELL DISTRIBUTION WIDTH 18.8 % (9.0-15.0); WHITE BLOOD COUNT (AUTO) 21.6 K/uL (4.8-10.8)
[2021-12-06 08:10] LABS: ALBUMIN 2.8 g/dL (3.4-4.8); CALCIUM 9.5 mg/dL (8.4-11.0); CREATININE 1.51 mg/dL (0.55-1.30); POTASSIUM 4.5 mmol/L (3.5-5.1); TOTAL BILIRUBIN 0.3 mg/dL (0.0-1.0)
[2021-12-06] MEDS: ASCORBIC ACID 500 MG TABLET PO SCH ×2 (09:00→22:29)
[2021-12-06] MEDS: DOCUSATE SODIUM 100 MG/10 ML UDC PO SCH (09:00)
[2021-12-06] MEDS: FUROSEMIDE 20 MG/2 ML VIAL IVP SCH (09:13)
[2021-12-06] MEDS: FLUCONAZOLE 200 mg/ NS 100 ML IV SCH (12:53)
[2021-12-06] MEDS: CHOLECALCIFEROL (VITAMIN D3) 5,000 UNIT TABLET PO SCH (17:34)
[2021-12-06] MEDS: SULFAMET 800MG/TMP 160MG, 20 ML UDBTL GT SCH ×2 (17:40→21:00)
[2021-12-06] MEDS: SENNA 8.8 MG/5 ML UDC NG SCH (22:08)
[2021-12-06] MEDS: DEXAMETHASONE SOD PHOSPHATE 10 MG/ML VIAL IVP SCH (22:29)
[2021-12-07] VITALS (26 sets, daily range): BP systolic 115–163
[2021-12-07] MEDS: THEOPHYLLINE ANHYDROUS 200 MG CAP.ER.24H PO SCH ×2 (01:30→05:31)
--- NOTE | 2021-12-07 01:30 | NUR ---
pt.was reassigned@0130a.pt.presents s/p trach/peg placemnt;12/05/21.pt.presents vent;settings;tv;500,fi0-2%:80,a/c;26,p;5.02-sat%=96%.pt.presents picc line;location;rt.bicept. iv fluids/drip;diprivan infusing.conc;30mcq/kg/min:rate;25ml/hr.pt's loc assessed;sedation.pt.presents g-tube;vital;1.2 rate;10ml:otpimum rate;60ml/hr.pt.presents turner cath intact patent.call light w/in access of the pt.
--- NOTE | 2021-12-07 04:00 | NUR ---
pt.assessed.v/s assessed note h/r 126bpm.trach intact i have attended to the oral/trach care/suction.02-sat%=96%.picc line intact iv fluids/drip:precedex infusing.note pt's loc.g-tube intact g-tube feed infusing.turner cath intact urine content present. per flacc pain mgx pt.absent facial grimaces/body posturing.pt.assessed for cleanliness.pt.repositioned.call light placed w/in access of the pt.
[2021-12-07] MEDS: INSULIN LISPRO SLIDING SCALE 100 UNITS/ML VIAL (humaLOG) SUBCUT PRN ×2 (05:46→18:29)
--- NOTE | 2021-12-07 06:30 | NUR ---
pt.assessed.v/s assessed values wnl.o2-sat%=96%.iv fluids/drip diprivan infusing.pt's loc assessed. turner cath intact g-tube intact.i have increased the g-tube feed rate to 20ml/hr.i have changed the picc line/g-tube dsg.per flacc pain mgx pt.absent facial grimaces/body posturing.pt.repositioned.call light placed w/in access of the pt.
--- NOTE | 2021-12-07 07:40 | NUR ---
OPENING NOTE: RC'VD REPORT FROM OUTGOING RN, ALL CARES ASSUMED.
--- NOTE | 2021-12-07 08:15 | NUR ---
LOPRESSOR GIVEN PRN FOR HR>160
--- NOTE | 2021-12-07 08:20 | NUR ---
DR. BHANDARI MAKING ROUNDS, VERBAL REPORT GIVEN, MD AWARE OF PRN GIVEN. MD TO PLACE NEW ORDERS.
[2021-12-07] MEDS: ASCORBIC ACID 500 MG TABLET PO SCH ×2 (08:34→23:19)
[2021-12-07] MEDS: FUROSEMIDE 20 MG/2 ML VIAL IVP SCH (08:34)
[2021-12-07] MEDS: DOCUSATE SODIUM 100 MG/10 ML UDC PO SCH (08:34)
[2021-12-07] MEDS: CHOLECALCIFEROL (VITAMIN D3) 5,000 UNIT TABLET PO SCH (08:34)
--- NOTE | 2021-12-07 08:35 | NUR ---
FIO2 DECREASED TO 70%, PATIENT OXYGEN SATURATION READING 98% ON MONITOR, NO ACUTE DISTRESS NOTED.
[2021-12-07] MEDS: METOPROLOL TARTRATE 5 MG/5 ML AMPUL IVP PRN ×2 (08:49→15:08)
[2021-12-07] MEDS ORDERED: METOPROLOL TARTRATE 25 MG TABLET PO ONE (09:30)
--- NOTE | 2021-12-07 09:52 | NUR ---
FIO2 DECREASED TO 60%, PATIENT OXYGEN SATURATION READING 98% ON MONITOR, NO ACUTE DISTRESS NOTED.
[2021-12-07 11:37] LABS: ALBUMIN 2.7 g/dL (3.4-4.8); CALCIUM 10.1 mg/dL (8.4-11.0); CREATININE 1.32 mg/dL (0.55-1.30); POTASSIUM 4.4 mmol/L (3.5-5.1); TOTAL BILIRUBIN 0.3 mg/dL (0.0-1.0)
[2021-12-07] MEDS ORDERED: AMIODARONE HCL 150 MG in D5W 100 ML IV ONE (11:45)
[2021-12-07] MEDS ORDERED: AMIODARONE HCL 450 MG/9 ML VIAL IV ONE ×2 (11:58→20:56)
[2021-12-07] MEDS: FLUCONAZOLE 200 mg/ NS 100 ML IV SCH (12:08)
--- NOTE | 2021-12-07 12:08 | NUR ---
DR. CROSS MAKING ROUNDS, VERBAL REPORT GIVEN, NEW ORDERS FOR AMIODARONE RASHARD DAIGLE, PLACED BY CHARGE NURSE.
--- NOTE | 2021-12-07 12:30 | NUR ---
FAMILY OUTSIDE OF ROOM, ALL QUESTIONS ANSWERED AT THIS TIME.
[2021-12-07] MEDS: AMIODARONE HCL 450 MG in D5W 241 ML IV SCH (13:19)
--- NOTE | 2021-12-07 13:20 | NUR ---
AMIODARONE DRIP STARTED PER MD ORDER
[2021-12-07] MEDS: HALOPERIDOL LACTATE 5 MG/ML VIAL IVP PRN (13:21)
--- NOTE | 2021-12-07 15:08 | NUR ---
LOPRESSOR GIVEN PRN FOR HR>160
--- NOTE | 2021-12-07 15:08 | NUR ---
PAGED DR. BHANDARI, PENDING RETURN CALL.
[2021-12-07] MEDS ORDERED: METOPROLOL TARTRATE 5 MG/5 ML AMPUL IVP ONE (15:30)
[2021-12-07] MEDS: ENOXAPARIN SODIUM 80 MG/0.8 ML SYRINGE SUBCUT SCH ×2 (16:00→23:25)
--- NOTE | 2021-12-07 19:00 | NUR ---
CLOSING NOTE: REPORT GIVEN TO INCOMING NOC RN, ALL CARES ENDORSED.
[2021-12-07] MEDS: INSULIN NPH 100 UNITS/ML 10 ML VIAL SUBCUT SCH (21:00)
[2021-12-07] MEDS: SENNA 8.8 MG/5 ML UDC NG SCH (23:00)
[2021-12-07] MEDS: DEXAMETHASONE SOD PHOSPHATE 10 MG/ML VIAL IVP SCH (23:18)
[2021-12-07] MEDS: METOPROLOL TARTRATE 25 MG TABLET PO SCH (23:22)
[2021-12-08] VITALS (26 sets, daily range): BP systolic 89–156
--- NOTE | 2021-12-08 07:19 | NUR ---
OPENING NOTE: RC'VD REPORT FROM OUTGOING RN, ALL CARES ASSUMED.
[2021-12-08 07:56] LABS: BASOPHILS # (AUTO) 0.1 K/uL (0.0-0.2); BASOPHILS % (AUTO) 0.3 % (0.0-2.0); EOSINOPHILS % (AUTO) 0.2 % (0.0-4.0); HEMATOCRIT 42.1 % (36-48); HEMOGLOBIN 13.7 g/dL (12.0-16.0); LYMPHOCYTES # (AUTO) 0.7 K/uL (1.0-5.5); LYMPHOCYTES % (AUTO) 2.9 % (20.5-51.5); MEAN CORPUSCULAR HEMOGLOBIN 29 pg (27-31); MEAN CORPUSCULAR HGB CONC 32 % (32-36); MEAN CORPUSCULAR VOLUME 89 fL (79.0-98.0); MONOCYTES # (AUTO) 0.6 K/uL (0.0-1.0); MONOCYTES % (AUTO) 2.7 % (1.7-9.3); NEUTROPHILS # (AUTO) 22.2 K/uL (1.8-7.7); NEUTROPHILS % (AUTO) 93.9 % (40.0-70.0); PLATELET COUNT (AUTO) 172 K/uL (130-430); RED BLOOD CELL COUNT(AUTO) 4.73 MIL/uL (4.2-6.2); WHITE BLOOD COUNT (AUTO) 23.6 K/uL (4.8-10.8)
[2021-12-08 08:06] LABS: ALBUMIN 2.6 g/dL (3.4-4.8); CALCIUM 10.2 mg/dL (8.4-11.0); CREATININE 1.41 mg/dL (0.55-1.30); POTASSIUM 4.4 mmol/L (3.5-5.1); TOTAL BILIRUBIN 0.3 mg/dL (0.0-1.0)
[2021-12-08] MEDS: AMIODARONE HCL 450 MG in D5W 241 ML IV SCH (08:10)
[2021-12-08] MEDS: PROPOFOL DRIP 100 ML IV PRN ×3 (08:16→17:50)
[2021-12-08] MEDS: DOCUSATE SODIUM 100 MG/10 ML UDC PO SCH (08:17)
[2021-12-08] MEDS: METOPROLOL TARTRATE 25 MG TABLET PO SCH ×2 (08:17→21:27)
[2021-12-08] MEDS: ASCORBIC ACID 500 MG TABLET PO SCH ×2 (08:17→21:27)
[2021-12-08] MEDS: FUROSEMIDE 20 MG/2 ML VIAL IVP SCH (08:17)
[2021-12-08] MEDS: CHOLECALCIFEROL (VITAMIN D3) 5,000 UNIT TABLET PO SCH (08:18)
[2021-12-08] MEDS: INSULIN NPH 100 UNITS/ML 10 ML VIAL SUBCUT SCH ×2 (08:18→21:28)
[2021-12-08] MEDS: ENOXAPARIN SODIUM 80 MG/0.8 ML SYRINGE SUBCUT SCH ×2 (08:19→21:27)
[2021-12-08] MEDS: INSULIN LISPRO SLIDING SCALE 100 UNITS/ML VIAL (humaLOG) SUBCUT PRN ×3 (08:24→17:58)
--- NOTE | 2021-12-08 08:49 | NUR ---
TEMP 103.2 AXILLARY, ICE PACKS AND COOL CLOTHS APPLIED, TYLENOL GIVEN PRN PER ORDER. WILL NOTIFY ID
--- NOTE | 2021-12-08 09:04 | NUR ---
DR. BHANDARI MAKING ROUNDS, VERBAL REPORT GIVEN. MD AWARE OF TEMP AND PRN GIVEN. NEW ORDERS PLACED.
[2021-12-08] MEDS: ACETAMINOPHEN 325 MG TABLET PO PRN (09:06)
--- NOTE | 2021-12-08 10:52 | NUR ---
DR. XIONG MAKING ROUNDS, VERBAL BEDSIDE REPORT GIVEN. ALL QUESTIONS ANSWERED.
--- NOTE | 2021-12-08 10:54 | NUR ---
ORDERS PLACED FOR NEURO CONSULT, CT SCAN AND EEG.
[2021-12-08] MEDS: FLUCONAZOLE 200 mg/ NS 100 ML IV SCH (11:16)
--- NOTE | 2021-12-08 12:15 | NUR ---
TEMP 102.2 AXILLARY, ICE PACKS AND COOL CLOTHS APPLIED.
[2021-12-08] MEDS ORDERED: NALOXONE HCL 0.4 MG/ML AMP (NARCAN) IVP PRN (12:30)
--- NOTE | 2021-12-08 15:22 | NUR ---
FAMILY OUTSIDE OF ROOM, ALL QUESTIONS ANSWERED.
--- NOTE | 2021-12-08 15:23 | NUR ---
DIRECTOR PROCESS AT BEDSIDE PERFORMING EXAM.
--- NOTE | 2021-12-08 15:52 | NUR ---
JOSE LUIS ( SON & DAUGHTER ) OUTSIDE OF ROOM, UPDATES GIVEN.
[2021-12-08] MEDS: MORPHINE SULFATE IN 0.9 % NACL 100 ML IV PRN (17:50)
[2021-12-08] MEDS: SENNA 8.8 MG/5 ML UDC NG SCH (21:39)
[2021-12-08] MEDS: AMIODARONE HCL 200 MG TABLET PO SCH (21:40)
[2021-12-08] MEDS: DEXAMETHASONE SOD PHOSPHATE 10 MG/ML VIAL IVP SCH (22:52)
[2021-12-09] VITALS (27 sets, daily range): BP systolic 91–134
[2021-12-09] MEDS: INSULIN LISPRO SLIDING SCALE 100 UNITS/ML VIAL (humaLOG) SUBCUT PRN ×4 (00:55→17:49)
--- NOTE | 2021-12-09 07:14 | NUR ---
Opening Received report from night custodian RN using SBAR format. Pt resting comfortably in bed, no signs of immediate distress. Bed locked in lowest position. All safety checks have been completed.
[2021-12-09] MEDS: METOPROLOL TARTRATE 25 MG TABLET PO SCH ×2 (08:28→21:20)
[2021-12-09] MEDS: AMIODARONE HCL 200 MG TABLET PO SCH ×2 (08:28→21:19)
[2021-12-09] MEDS: CHOLECALCIFEROL (VITAMIN D3) 5,000 UNIT TABLET PO SCH (08:28)
[2021-12-09] MEDS: ASCORBIC ACID 500 MG TABLET PO SCH ×2 (08:29→21:22)
[2021-12-09] MEDS: DOCUSATE SODIUM 100 MG/10 ML UDC PO SCH (08:31)
[2021-12-09] MEDS: PROPOFOL DRIP 100 ML IV PRN (08:31)
[2021-12-09] MEDS: INSULIN NPH 100 UNITS/ML 10 ML VIAL SUBCUT SCH (08:38)
[2021-12-09] MEDS: FUROSEMIDE 20 MG/2 ML VIAL IVP SCH (09:00)
[2021-12-09] MEDS: ACETAMINOPHEN 325 MG TABLET PO PRN (09:23)
[2021-12-09] MEDS: ENOXAPARIN SODIUM 80 MG/0.8 ML SYRINGE SUBCUT SCH ×2 (09:24→21:22)
[2021-12-09] MEDS: MORPHINE SULFATE IN 0.9 % NACL 100 ML IV PRN (09:37)
--- NOTE | 2021-12-09 10:30 | NUR ---
Spoke with pt's family over the phone, updated on pt status. Answered all questions
[2021-12-09] MEDS: FLUCONAZOLE 200 mg/ NS 100 ML IV SCH (10:49)
[2021-12-09] MEDS: PIPERACILLIN/TAZO 2.25G/DEX-IS 50 ML IV SCH ×2 (12:19→17:33)
[2021-12-09] MEDS: DEXAMETHASONE SOD PHOSPHATE 10 MG/ML VIAL IVP SCH (21:18)
[2021-12-09] MEDS: SENNA 8.8 MG/5 ML UDC NG SCH (21:18)
[2021-12-09] MEDS: QUEtiapine FUMARATE 25 MG TABLET PO SCH (21:20)
[2021-12-10] VITALS (28 sets, daily range): BP systolic 97–165
--- NOTE | 2021-12-10 | NUR ---
RN NOTES ON SAME VENT SETTING, SPO2 GOOD.
[2021-12-10] MEDS: INSULIN NPH 100 UNITS/ML 10 ML VIAL SUBCUT SCH ×3 (00:06→21:31)
[2021-12-10] MEDS: PIPERACILLIN/TAZO 2.25G/DEX-IS 50 ML IV SCH ×5 (00:08→23:33)
[2021-12-10] MEDS: INSULIN LISPRO SLIDING SCALE 100 UNITS/ML VIAL (humaLOG) SUBCUT PRN ×4 (00:15→18:12)
--- NOTE | 2021-12-10 06:00 | NUR ---
RN NOTES AM CARE DONE. BS - 291 MG/DL DUE INSULIN COVERAGE GIVEN SQ.
[2021-12-10 06:50] LABS: ALBUMIN 2.1 g/dL (3.4-4.8); CALCIUM 10.2 mg/dL (8.4-11.0); CREATININE 1.36 mg/dL (0.55-1.30); POTASSIUM 4.7 mmol/L (3.5-5.1); TOTAL BILIRUBIN 0.3 mg/dL (0.0-1.0)
--- NOTE | 2021-12-10 07:15 | NUR ---
OPENING NOTE: REPORT RCVD FROM PM RN ALL CARES ASSUMED.
[2021-12-10 08:51] LABS: BASOPHILS # (AUTO) 0.1 K/uL (0.0-0.2); BASOPHILS % (AUTO) 0.8 % (0.0-2.0); EOSINOPHILS # (AUTO) 0.1 K/uL (0.0-0.4); EOSINOPHILS % (AUTO) 0.6 % (0.0-4.0); HEMATOCRIT 36.4 % (36-48); HEMOGLOBIN 11.6 g/dL (12.0-16.0); LYMPHOCYTES # (AUTO) 0.7 K/uL (1.0-5.5); LYMPHOCYTES % (AUTO) 4.4 % (20.5-51.5); MEAN CORPUSCULAR HEMOGLOBIN 29 pg (27-31); MEAN CORPUSCULAR HGB CONC 32 % (32-36); MEAN CORPUSCULAR VOLUME 91 fL (79.0-98.0); MONOCYTES # (AUTO) 0.4 K/uL (0.0-1.0); MONOCYTES % (AUTO) 2.2 % (1.7-9.3); NEUTROPHILS # (AUTO) 15.4 K/uL (1.8-7.7); PLATELET COUNT (AUTO) 114 K/uL (130-430); RED CELL DISTRIBUTION WIDTH 19.3 % (9.0-15.0)
[2021-12-10] MEDS: METOPROLOL TARTRATE 25 MG TABLET PO SCH ×2 (09:00→20:52)
--- NOTE | 2021-12-10 09:00 | NUR ---
SEDATION TURNED OFF, MONITORING FOR CHANGES.
[2021-12-10] MEDS: CHOLECALCIFEROL (VITAMIN D3) 5,000 UNIT TABLET PO SCH (09:39)
[2021-12-10] MEDS: DOCUSATE SODIUM 100 MG/10 ML UDC PO SCH (09:39)
[2021-12-10] MEDS: ASCORBIC ACID 500 MG TABLET PO SCH ×2 (09:39→20:51)
[2021-12-10] MEDS: FUROSEMIDE 20 MG/2 ML VIAL IVP SCH (09:40)
[2021-12-10] MEDS: AMIODARONE HCL 200 MG TABLET PO SCH (09:41)
[2021-12-10] MEDS: PROPOFOL DRIP 100 ML IV PRN (09:44)
[2021-12-10] MEDS: ENOXAPARIN SODIUM 80 MG/0.8 ML SYRINGE SUBCUT SCH ×2 (09:45→20:50)
--- NOTE | 2021-12-10 10:00 | NUR ---
PATIENT OPENING EYES SPONTANEOUSLY.
--- NOTE | 2021-12-10 10:11 | NUR ---
Nutrition F/U Admitting Diagnosis: COVID, pneumonia Medical History Comment: COVID-19 per physician notes 11/19 MD notes: Sepsis, COPD Pt also found w/ sepsis per physician notes SARS-CoV-2 Ag (Rapid) Positive 11/14, unvaccinated, Rapid 12/05 Positive. Subjective Information: RD bedside visit was deferred d/t COVID isolation precaution. Per EMR review, pt was febrile over the weekend. Last BM 12/10. Fred scale: 8, per health assessment and treatment teacher, +skin teat to left buttocks, ecchymosis to right buttocks and 1+ pitting edema to BUE. Abdomen is distended w/ active bowel sounds. EN rate: 60ml (12/10); GRV 0ml (12/10). Current EN regimen provides adequate nutrition and remains appropriate. Pt was seen through glass door/window in ICU, EN was observed to be off during time of rounding. RD s/w RN who reported that she will resume EN scot, and RN clarified that pt does not have abdominal distention but that her abdomen is rounded d/t pt's obesity. No EN issues, EN has been tolerated. Current Diet Order/Nutrition Support: Glucerna 1.2 at 60ml/hr (new goal rate); FWF 200ml Q6H via OGT x 3 days Pertinent Medications: propofol at 9.906 ml/hr (261 kcal/day), decadron, Lovenox, senna liquid, SSI, colace liquid, lasix, VIT D, VIT C, Zinc Pertinent Labs: 12/10 Na 143 L, BG 311 H, POC BG 297 H, BUN 93 H, Cre 1.36 H Height (Feet) 5 feet Height (Inches) 4.00 inches Weight (Pounds) 182 pounds -- stable since 11/16 Weight (Calculated Kilograms) 82.329398 kilograms Patient Weight 82.554 kg Body Mass Index 31.24 kg/m2 NEW Estimated Energy Expenditure (kcals/day) 1990 ([facility] 2009 d/t criticall illness on vent; Ve: 12.1; Tmax: 39.4'C) Estimated Protein Required (g/day) 83-110 (1.5-2 gm/kg IBW d/t obesity, sepsis) Estimated Fluid Required (l/day) 1.8 (1 ml/kcal/day for maintenance) Problem/Etiology/Signs/Symptoms Increased nutritional needs R/T metabolic demands AEB estimated nutritional requirements for sepsis. (*ongoing) Altered nutrition-related labs R/T compromised endocrine function AEB elevated BG/POC BG lab values. (*ongoing) Expected Outcomes/Goals - Monitor EN tolerance and intake w/ goal of pt meeting >80% of estimated nutritional needs, labs trending WNL, normal GI function, and skin integrity/wt maintenance Dietitian Recommendations * Resume: Glucerna 1.2 at 60ml/hr (new goal rate); FWF 200ml Q6H via OGT Provides (w/ current propofol rate): 1989 kcal/day, 86 gm protein/day, and 1968 ml free water/day Meets: 99% of estimated caloric needs and 78% of upper end of estimated protein needs Follow Up High Risk: F/U in 2-3 days
[2021-12-10 10:57] LABS: WHITE BLOOD COUNT (AUTO) 16.7 K/uL (4.8-10.8)
--- NOTE | 2021-12-10 16:16 | NUR ---
BRIGHT RED BLOOD NOTED TO TRACH SITE, MD ROTHMAN AWARE. NEW ORDER RCVD TO PLACE SURGI-SEAL TO TRACH SITE AND NOTIFY SURGEON. CHARGE AWARE.
--- NOTE | 2021-12-10 16:21 | NUR ---
PAGED FOR ORDERS SPOKE TO: EXCHANGE STOVE FITTER
--- NOTE | 2021-12-10 16:45 | NUR ---
SPOKE WITH DR. ARCE, PER SURGEON PLACE SURGI-SEAL TO TRACH SITE. WILL PLACE ORDER. MD TO COME AND SEE PATIENT.
[2021-12-10] MEDS: SENNA 8.8 MG/5 ML UDC NG SCH (20:50)
[2021-12-10] MEDS: DEXAMETHASONE SOD PHOSPHATE 10 MG/ML VIAL IVP SCH (20:51)
[2021-12-10] MEDS: QUEtiapine FUMARATE 25 MG TABLET PO SCH (20:51)
[2021-12-11] VITALS (30 sets, daily range): BP systolic 104–177
[2021-12-11] MEDS: PIPERACILLIN/TAZO 2.25G/DEX-IS 50 ML IV SCH ×3 (05:33→18:15)
[2021-12-11] MEDS: INSULIN LISPRO SLIDING SCALE 100 UNITS/ML VIAL (humaLOG) SUBCUT PRN ×3 (05:40→18:27)
--- NOTE | 2021-12-11 07:03 | NUR ---
Spoke with Dr DAVIS Last night and explained that the pt has been bleeding perfusly below the trach. I advised him that i put surgi-seal on the area that was bleeding and it continues to bleed out. Dr Davis stated yesterday that he could not go there to the patient to wait till tommorrow for Dr Emanuel to come out. Pts vitals were stable throughtout the night and dresssing were changed [id number].
--- NOTE | 2021-12-11 07:20 | NUR ---
Opening notes Received report from endorsing shift leader RN for continuity of care. Patient is lying in bed with IVF NS @ 5 mL/hr. Patient's vent setting PC rate 26, FIO2 35%, and peep 5. Patient's vital sign blood pressure 164/87, heart rate 107, SPO2 96%, respiration 19. Esquivel catheter is in place draining to gravity. Bed is locked and in lowest position, fall and safety precaution is in place.
--- NOTE | 2021-12-11 07:34 | NUR ---
Dr. Ortiz at bedside assessing the patient. Verbal report given.
[2021-12-11] MEDS: DOCUSATE SODIUM 100 MG/10 ML UDC PO SCH (08:39)
[2021-12-11] MEDS: FUROSEMIDE 20 MG/2 ML VIAL IVP SCH (08:39)
[2021-12-11] MEDS: ASCORBIC ACID 500 MG TABLET PO SCH ×2 (08:40→20:37)
[2021-12-11] MEDS: CHOLECALCIFEROL (VITAMIN D3) 5,000 UNIT TABLET PO SCH (08:40)
[2021-12-11] MEDS: METOPROLOL TARTRATE 25 MG TABLET PO SCH ×2 (08:41→20:38)
[2021-12-11] MEDS: ENOXAPARIN SODIUM 80 MG/0.8 ML SYRINGE SUBCUT SCH ×2 (09:00→20:08)
[2021-12-11] MEDS: INSULIN NPH 100 UNITS/ML 10 ML VIAL SUBCUT SCH ×2 (09:24→21:01)
[2021-12-11 11:23] LABS: PROTHROMBIN TIME 10.9 SECS (9.5-12.5)
--- NOTE | 2021-12-11 19:30 | NUR ---
Opening Note Patient is resting in bed with no signs of distress. Patients tracheostomy is bleeding and provider has been notified.
--- NOTE | 2021-12-11 19:45 | NUR ---
Spoke with Dr. Emanuel about bleeding tracheostomy. He informed me that he observed that he assessed the patient this morning and we will continue to monitor the patient's bleed around the tracheostomy. No new orders or actions right now.
[2021-12-11] MEDS ORDERED: INSULIN REGULAR, HUMAN 10 UNITS/0.1 ML INJ ONE (20:00)
[2021-12-11] MEDS: QUEtiapine FUMARATE 25 MG TABLET PO SCH (20:37)
[2021-12-11] MEDS: SENNA 8.8 MG/5 ML UDC NG SCH (20:38)
[2021-12-11] MEDS: DEXAMETHASONE SOD PHOSPHATE 10 MG/ML VIAL IVP SCH (21:05)
[2021-12-12] VITALS (30 sets, daily range): BP systolic 122–179
[2021-12-12] MEDS: PIPERACILLIN/TAZO 2.25G/DEX-IS 50 ML IV SCH ×4 (00:09→17:50)
[2021-12-12 05:35] LABS: BASOPHILS # (AUTO) 0.1 K/uL (0.0-0.2); BASOPHILS % (AUTO) 0.4 % (0.0-2.0); EOSINOPHILS % (AUTO) 0.1 % (0.0-4.0); HEMATOCRIT 31.3 % (36-48); LYMPHOCYTES # (AUTO) 1.1 K/uL (1.0-5.5); LYMPHOCYTES % (AUTO) 4.5 % (20.5-51.5); MEAN CORPUSCULAR HEMOGLOBIN 30 pg (27-31); MEAN CORPUSCULAR HGB CONC 32 % (32-36); MEAN CORPUSCULAR VOLUME 93 fL (79.0-98.0); MONOCYTES # (AUTO) 0.6 K/uL (0.0-1.0); MONOCYTES % (AUTO) 2.4 % (1.7-9.3); NEUTROPHILS # (AUTO) 22.9 K/uL (1.8-7.7); PLATELET COUNT (AUTO) 157 K/uL (130-430); RED BLOOD CELL COUNT(AUTO) 3.38 MIL/uL (4.2-6.2); RED CELL DISTRIBUTION WIDTH 19.5 % (9.0-15.0); WHITE BLOOD COUNT (AUTO) 24.7 K/uL (4.8-10.8)
[2021-12-12] MEDS: INSULIN LISPRO SLIDING SCALE 100 UNITS/ML VIAL (humaLOG) SUBCUT PRN ×3 (05:59→18:03)
--- NOTE | 2021-12-12 06:15 | NUR ---
Patients blood sugar at 464. Paged Dr. Rojas per insulin protocol.
--- NOTE | 2021-12-12 06:45 | NUR ---
spoke with Dr. Toney about blood sugars. New orders received.
[2021-12-12] MEDS ORDERED: INSULIN REGULAR, HUMAN 100 UNITS/ML, 10 ML VIAL SUBCUT ONE (07:00)
--- NOTE | 2021-12-12 07:25 | NUR ---
Opening notes Received report from endorsing fast food shift lead RN for continuity of care. Patient lying in bed with IVF NS @ 5 mL/hr. Patient's vent setting PC 24, FIO2 35%, and peep of 5. Patient's vital sign blood pressure 119/57, heart rate 104, respirations 33, SPO2 97%, and temperature 97.1 F. Esquivel catheter is in place draining to gravity. Bed is locked and in lowest position, fall and safety precaution in place. Addendum: 12/12/21 at 0754 by Angy Jones RN Patient's vital signs blood pressure 134/72, SPO2 97%, respirations 28, temperature 96.8 F, and heart rate 107.
--- NOTE | 2021-12-12 07:33 | NUR ---
Dr. Ortiz at bedside. Verbal report given. No new order given.
--- NOTE | 2021-12-12 08:32 | NUR ---
Dr. Vega at bedside assessing the patient. Verbal report given. No new orders.
[2021-12-12] MEDS: DOCUSATE SODIUM 100 MG/10 ML UDC PO SCH (08:55)
[2021-12-12] MEDS: CHOLECALCIFEROL (VITAMIN D3) 5,000 UNIT TABLET PO SCH (08:55)
[2021-12-12] MEDS: ASCORBIC ACID 500 MG TABLET PO SCH ×2 (08:55→21:19)
[2021-12-12] MEDS: METOPROLOL TARTRATE 25 MG TABLET PO SCH ×2 (08:56→21:19)
[2021-12-12] MEDS: ENOXAPARIN SODIUM 80 MG/0.8 ML SYRINGE SUBCUT SCH ×2 (09:00→21:15)
[2021-12-12] MEDS: FUROSEMIDE 20 MG/2 ML VIAL IVP SCH (09:00)
[2021-12-12] MEDS: INSULIN GLARGINE 100 UNITS/ML 10 ML VIAL SUBCUT SCH (09:01)
[2021-12-12] MEDS: INSULIN NPH 100 UNITS/ML 10 ML VIAL SUBCUT SCH ×2 (09:02→21:16)
--- NOTE | 2021-12-12 10:28 | NUR ---
Dr. Rojas is in the unit. Reported high blood sugar. No new order received.
--- NOTE | 2021-12-12 11:18 | NUR ---
Family member called for updates.
[2021-12-12 15:40] LABS: NEUTROPHILS % (AUTO) 92.6 % (40.0-70.0)
[2021-12-12] MEDS: QUEtiapine FUMARATE 25 MG TABLET PO SCH (21:19)
[2021-12-12] MEDS: SENNA 8.8 MG/5 ML UDC NG SCH (21:19)
[2021-12-12] MEDS: DEXAMETHASONE SOD PHOSPHATE 10 MG/ML VIAL IVP SCH (21:48)
[2021-12-13] VITALS (27 sets, daily range): BP systolic 89–190
[2021-12-13] MEDS: PIPERACILLIN/TAZO 2.25G/DEX-IS 50 ML IV SCH ×4 (00:57→18:41)
[2021-12-13] MEDS: INSULIN LISPRO SLIDING SCALE 100 UNITS/ML VIAL (humaLOG) SUBCUT PRN ×4 (00:58→18:54)
[2021-12-13] MEDS: MORPHINE SULFATE IN 0.9 % NACL 100 ML IV PRN ×2 (05:05→05:06)
--- NOTE | 2021-12-13 07:22 | NUR ---
Assumed pt care report received from Arnoldo PORTILLO met pt lethargic eyes open during pt oral care unable to follow verbal command, extremities withdrawal to pain, tachycardia, tachypneic elevated blood pressure, tracheostomy to vent PC mode rate 20, fio2 50% and peep 5. Oral care perineal care done and pt repositioned for comfort. Esquivel to gravity with some urine.
[2021-12-13 07:28] LABS: ALBUMIN 2.2 g/dL (3.4-4.8); CALCIUM 9.8 mg/dL (8.4-11.0); CREATININE 1.57 mg/dL (0.55-1.30); POTASSIUM 4.5 mmol/L (3.5-5.1); TOTAL BILIRUBIN 0.4 mg/dL (0.0-1.0)
[2021-12-13 07:44] LABS: HEMATOCRIT 33.7 % (36-48); HEMOGLOBIN 10.3 g/dL (12.0-16.0); MEAN CORPUSCULAR HEMOGLOBIN 29 pg (27-31); MEAN CORPUSCULAR HGB CONC 31 % (32-36); MEAN CORPUSCULAR VOLUME 95 fL (79.0-98.0); PLATELET COUNT (AUTO) 177 K/uL (130-430); RED BLOOD CELL COUNT(AUTO) 3.55 MIL/uL (4.2-6.2)
--- NOTE | 2021-12-13 08:00 | NUR ---
Dr Ortiz was here mentioned to him, pt's tachycardia HR 117 and elevated blood pressure sbp >170 said he will put order in for Hydralazine IVP prn
[2021-12-13 08:53] LABS: WHITE BLOOD COUNT (AUTO) 37.4 K/uL (4.8-10.8)
[2021-12-13] MEDS ORDERED: hydrALAZINE HCL 10 MG TABLET PO PRN (09:00)
--- NOTE | 2021-12-13 09:18 | NUR ---
Notified Dr Rojas of pt's high blood sugar [phone] order received to consult Dr Carrillo Sayed. Called Dr Carrillo Sayed on his cell phone for consult also mentioned all the blood sugars ongoing treatments sliding scale plus Lantus and Insulin N. said he to continue same treatments and will see the pt later in afternoon
[2021-12-13] MEDS: INSULIN NPH 100 UNITS/ML 10 ML VIAL SUBCUT SCH (09:29)
[2021-12-13] MEDS: INSULIN GLARGINE 100 UNITS/ML 10 ML VIAL SUBCUT SCH ×2 (09:30→21:11)
[2021-12-13] MEDS: DOCUSATE SODIUM 100 MG/10 ML UDC PO SCH (09:31)
[2021-12-13] MEDS: METOPROLOL TARTRATE 25 MG TABLET PO SCH ×2 (09:32→21:15)
[2021-12-13] MEDS: ASCORBIC ACID 500 MG TABLET PO SCH ×2 (09:32→21:15)
[2021-12-13] MEDS: FUROSEMIDE 20 MG/2 ML VIAL IVP SCH (09:35)
[2021-12-13] MEDS: CHOLECALCIFEROL (VITAMIN D3) 5,000 UNIT TABLET PO SCH (09:35)
[2021-12-13] MEDS: ENOXAPARIN SODIUM 80 MG/0.8 ML SYRINGE SUBCUT SCH ×2 (09:37→21:16)
[2021-12-13] MEDS: HALOPERIDOL LACTATE 5 MG/ML VIAL IVP PRN (10:54)
[2021-12-13] MEDS: ACETAMINOPHEN 325 MG TABLET PO PRN (10:56)
--- NOTE | 2021-12-13 11:42 | NUR ---
Pt's daughter Екатерина called for updates, education on care plan, pt's condition vitals signs and she verbalized understanding and gratitude for all the care pt receiving.
[2021-12-13] MEDS: FLUCONAZOLE 200 mg/ NS 100 ML IV SCH (13:41)
--- NOTE | 2021-12-13 14:55 | NUR ---
Dr Vega'a rounds updates at the bedside, high blood sugar >400 pt o lantus sq 10uints given to day also on Insulin N order received to increase LANTUS to 20units, give 10units extra now, mentioned to MD that Dr Carrillo Sayed consulted already in additional order Morphine 2 mg ivp q4hr PRN.
[2021-12-13 14:59] LABS: BAND % (MANUAL) 6 % (0-6); BASOPHILS % (MANUAL) 0 % (0-2); EOSINOPHILS % (MANUAL) 0 % (0-7); LYMPHOCYTES % (MANUAL) 3 % (20-46); METAMYELOCYTES % 1 % (0-0); MONOCYTES % (MANUAL) 4 % (0-11)
[2021-12-13] MEDS ORDERED: INSULIN GLARGINE 100 UNITS/ML 10 ML VIAL SUBCUT ONE (15:30)
[2021-12-13] MEDS: MORPHINE 2 MG/ML INJ. SYRINGE IVP PRN (15:58)
--- NOTE | 2021-12-13 16:50 | NUR ---
Family were here updates on pt's condition and care plan, vent settings treatments and pt's response to care. Encouraged them to verbalized their concerns and support provided.
--- NOTE | 2021-12-13 17:20 | NUR ---
Complete bed bath CHG perineal, oral, turner care and pt repositioned for comfort.
--- NOTE | 2021-12-13 19:14 | NUR ---
Change of shift report to SHARRON PORTILLO for continuity of care updates at the bedside as at this time pt's vitals signs stable afebrile restful no sign fo distress noted no changes in care plan and pt's condition.
--- NOTE | 2021-12-13 20:49 | NUR ---
FIO2 TITRATED TO 40% Addendum: 12/13/21 at 2049 by Tena Hawley RT Amended: Links added.
[2021-12-13] MEDS: DEXAMETHASONE SOD PHOSPHATE 10 MG/ML VIAL IVP SCH (21:14)
[2021-12-13] MEDS: LINEZOLID 300 ML IV SCH (21:15)
[2021-12-13] MEDS: QUEtiapine FUMARATE 25 MG TABLET PO SCH (21:15)
[2021-12-13] MEDS: SENNA 8.8 MG/5 ML UDC NG SCH (21:15)
[2021-12-14] VITALS (31 sets, daily range): BP systolic 79–128
[2021-12-14] MEDS: PIPERACILLIN/TAZO 2.25G/DEX-IS 50 ML IV SCH ×4 (01:19→17:30)
[2021-12-14] MEDS: INSULIN LISPRO SLIDING SCALE 100 UNITS/ML VIAL (humaLOG) SUBCUT PRN ×2 (01:20→07:26)
[2021-12-14] MEDS: DOCUSATE SODIUM 100 MG/10 ML UDC PO SCH (08:29)
[2021-12-14] MEDS: LINEZOLID 300 ML IV SCH ×2 (08:29→21:00)
[2021-12-14] MEDS: FUROSEMIDE 20 MG/2 ML VIAL IVP SCH (08:30)
[2021-12-14] MEDS: ASCORBIC ACID 500 MG TABLET PO SCH ×2 (08:30→21:00)
[2021-12-14] MEDS: CHOLECALCIFEROL (VITAMIN D3) 5,000 UNIT TABLET PO SCH (08:30)
[2021-12-14] MEDS: METOPROLOL TARTRATE 25 MG TABLET PO SCH ×2 (08:31→21:00)
[2021-12-14] MEDS: ENOXAPARIN SODIUM 80 MG/0.8 ML SYRINGE SUBCUT SCH ×2 (08:32→21:00)
[2021-12-14] MEDS: INSULIN GLARGINE 100 UNITS/ML 10 ML VIAL SUBCUT SCH (08:34)
[2021-12-14 08:41] LABS: CALCIUM 9.4 mg/dL (8.4-11.0); CREATININE 1.56 mg/dL (0.55-1.30); POTASSIUM 3.9 mmol/L (3.5-5.1); THYROID STIMULATING HORMONE 0.36 uIu/mL (0.36-3.74)
[2021-12-14] MEDS ORDERED: INSULIN GLARGINE 100 UNITS/ML 10 ML VIAL SUBCUT SCH (09:00)
[2021-12-14 09:03] LABS: HEMATOCRIT 30.6 % (36-48); HEMOGLOBIN 9.4 g/dL (12.0-16.0); MEAN CORPUSCULAR HEMOGLOBIN 29 pg (27-31); MEAN CORPUSCULAR HGB CONC 31 % (32-36); MEAN CORPUSCULAR VOLUME 96 fL (79.0-98.0); PLATELET COUNT (AUTO) 185 K/uL (130-430); RED BLOOD CELL COUNT(AUTO) 3.19 MIL/uL (4.2-6.2); RED CELL DISTRIBUTION WIDTH 21.2 % (9.0-15.0)
[2021-12-14] MEDS ORDERED: COMMUNICATION ORDER XX ONE (09:30)
--- NOTE | 2021-12-14 10:20 | NUR ---
SPLICER MACHINE OPERATOR PHONED DR SHER SAYED AND INFORMED HIM OF LATEST FINGERSTICK 471 MG/DL. STATED THAT HE WILL BE COMING IN TO SEE THE PT.
--- NOTE | 2021-12-14 11:15 | NUR ---
MD DR HARPERED IN THE UNIT AND EXAMINED PT, NEW ORDERS RECEIVED.
[2021-12-14] MEDS ORDERED: INSULIN REGULAR, HUMAN 100 UNITS in NS 99 ML IV PRN ×4 (11:45→21:30)
--- NOTE | 2021-12-14 11:45 | NUR ---
HIGH ALERT NOTE: Called Dr. SHER SAYED back at 1145 identified within the medical roster to verify physician authenticity.
[2021-12-14 12:09] LABS: WHITE BLOOD COUNT (AUTO) 36.5 K/uL (4.8-10.8)
[2021-12-14] MEDS: FLUCONAZOLE 200 mg/ NS 100 ML IV SCH (12:45)
[2021-12-14] MEDS ORDERED: INSULIN REGULAR, HUMAN 100 UNITS/ML, 10 ML VIAL IVP ONE (15:00)
--- NOTE | 2021-12-14 15:46 | NUR ---
RT NOTES RN aware of elevated [facility]
[2021-12-14] MEDS: PROPOFOL DRIP 100 ML IV PRN (16:13)
--- NOTE | 2021-12-14 16:13 | NUR ---
IV DRIPS PROPOFOL DRIP INITIATED AT 5 MCG/KG/MIN ORDERED BY DR ROTHMAN. PT'S FAMILY OUTSIDE PT'S ROOM AND UPDATED.
[2021-12-14 16:39] LABS: BAND % (MANUAL) 3 % (0-6)
[2021-12-14 16:40] LABS: BASOPHILS % (MANUAL) 0 % (0-2); EOSINOPHILS % (MANUAL) 0 % (0-7); LYMPHOCYTES % (MANUAL) 5 % (20-46); MONOCYTES % (MANUAL) 3 % (0-11)
[2021-12-14] MEDS: SENNA 8.8 MG/5 ML UDC NG SCH (21:00)
[2021-12-14] MEDS: QUEtiapine FUMARATE 25 MG TABLET PO SCH (21:00)
[2021-12-14] MEDS: DEXAMETHASONE SOD PHOSPHATE 10 MG/ML VIAL IVP SCH (21:45)
[2021-12-15] VITALS (23 sets, daily range): BP systolic 62–121
[2021-12-15] MEDS: PIPERACILLIN/TAZO 2.25G/DEX-IS 50 ML IV SCH ×5 (06:50→23:31)
--- NOTE | 2021-12-15 07:20 | NUR ---
Received patient and report from print graphic designer nurse. Patient in bed with side rails x 3 up. Call light with in reach.
[2021-12-15 07:28] LABS: CALCIUM 9.1 mg/dL (8.4-11.0); CREATININE 1.73 mg/dL (0.55-1.30); POTASSIUM 3.1 mmol/L (3.5-5.1)
[2021-12-15 07:36] LABS: BASOPHILS # (AUTO) 0.2 K/uL (0.0-0.2); BASOPHILS % (AUTO) 0.7 % (0.0-2.0); HEMATOCRIT 31.3 % (36-48); HEMOGLOBIN 9.6 g/dL (12.0-16.0); LYMPHOCYTES # (AUTO) 1.3 K/uL (1.0-5.5); LYMPHOCYTES % (AUTO) 4.2 % (20.5-51.5); MEAN CORPUSCULAR HEMOGLOBIN 29 pg (27-31); MEAN CORPUSCULAR HGB CONC 31 % (32-36); MEAN CORPUSCULAR VOLUME 95 fL (79.0-98.0); MONOCYTES % (AUTO) 3.4 % (1.7-9.3); NEUTROPHILS # (AUTO) 28.3 K/uL (1.8-7.7); NEUTROPHILS % (AUTO) 91.7 % (40.0-70.0); PLATELET COUNT (AUTO) 212 K/uL (130-430); RED BLOOD CELL COUNT(AUTO) 3.29 MIL/uL (4.2-6.2); RED CELL DISTRIBUTION WIDTH 21.2 % (9.0-15.0)
[2021-12-15 08:18] LABS: WHITE BLOOD COUNT (AUTO) 30.9 K/uL (4.8-10.8)
[2021-12-15 09:14] LABS: ERYTHROCYTE SEDIMENTATION RATE 108 MM/HR (0-20)
--- NOTE | 2021-12-15 09:25 | NUR ---
Doctor Angel at bedside assessing patient, gave update as requested. Requested to start levophed already ordered to keep systolic blood pressure over 90, may continue to give scheduled lopressor in order to control heart rate. Followed orders.
[2021-12-15] MEDS: CHOLECALCIFEROL (VITAMIN D3) 5,000 UNIT TABLET PO SCH (09:58)
[2021-12-15] MEDS: FUROSEMIDE 20 MG/2 ML VIAL IVP SCH (09:58)
[2021-12-15] MEDS: DOCUSATE SODIUM 100 MG/10 ML UDC PO SCH (09:58)
[2021-12-15] MEDS: ASCORBIC ACID 500 MG TABLET PO SCH ×2 (09:58→20:24)
[2021-12-15] MEDS: LINEZOLID 300 ML IV SCH ×2 (09:59→20:25)
[2021-12-15] MEDS: 0.45% NACL 1,000 ML IV SCH ×3 (10:00→23:32)
[2021-12-15] MEDS: METOPROLOL TARTRATE 25 MG TABLET PO SCH ×2 (10:23→20:25)
[2021-12-15] MEDS: ENOXAPARIN SODIUM 80 MG/0.8 ML SYRINGE SUBCUT SCH ×2 (10:24→20:27)
--- NOTE | 2021-12-15 10:49 | NUR ---
Doctor Tyrone-Sayed at bedside assessing patient, gave update as requested. New order to change blood sugar checks to every 2 hours instead of 1. Orders placed. Addendum: 12/15/21 at 2014 by [employer] associate financial analyst NEW ORDER TO INCREASE REGULAR INSULIN DRIP TO 3 UNITS/HR CONTINUOUS. ORDERS PLACED.
[2021-12-15] MEDS: FLUCONAZOLE 200 mg/ NS 100 ML IV SCH (12:05)
[2021-12-15] MEDS: NOREPINEPHRINE BITARTRATE 4 MG in NS 246 ML IV PRN ×2 (12:08→17:50)
[2021-12-15] MEDS: PROPOFOL DRIP 100 ML IV PRN ×2 (12:17→23:30)
--- NOTE | 2021-12-15 13:30 | NUR ---
Daughter Екатерина called, gave update as requested via telephone.
[2021-12-15] MEDS ORDERED: POTASSIUM CHLORIDE 20 MEQ/PKT PACKET PO ONE (14:00)
[2021-12-15] MEDS: ACETAMINOPHEN 325 MG TABLET PO PRN (14:35)
--- NOTE | 2021-12-15 15:30 | NUR ---
Son visit mother outside of room.
[2021-12-15] MEDS: INSULIN REGULAR, HUMAN 100 UNITS in NS 99 ML IV SCH ×2 (20:15)
[2021-12-15] MEDS: QUEtiapine FUMARATE 25 MG TABLET PO SCH (20:24)
[2021-12-15] MEDS: SENNA 8.8 MG/5 ML UDC NG SCH (20:26)
[2021-12-15] MEDS ORDERED: NOREPINEPHRINE 4 MG/4 ML VIAL IV ONE (22:20)
[2021-12-15] MEDS: DEXAMETHASONE SOD PHOSPHATE 10 MG/ML VIAL IVP SCH (22:21)
[2021-12-16] VITALS (25 sets, daily range): BP systolic 94–137
[2021-12-16] MEDS ORDERED: NOREPINEPHRINE 4 MG/4 ML VIAL IV ONE ×2 (01:20→05:08)
[2021-12-16] MEDS: PIPERACILLIN/TAZO 2.25G/DEX-IS 50 ML IV SCH ×3 (05:00→18:00)
[2021-12-16] MEDS: NOREPINEPHRINE BITARTRATE 4 MG in NS 246 ML IV PRN ×3 (05:20→17:21)
--- NOTE | 2021-12-16 08:00 | NUR ---
PT. RECIEVED ON THE VENTILATOR VIA TRACHEOSTOMY ON PC MODE.CARE ASSURED.NO ACUTE DISTRESS NOTED.LEVOPHED @ 0.2MCG/KG/MIN TO KEEP MAP>65.AFEBRILE.FEEDING VIA PEGTUBE W/O RESIDUIAL.ISOLATION FOR CONTACT PRECAUTION NOTED.
[2021-12-16 08:08] LABS: ALBUMIN 1.6 g/dL (3.4-4.8); C-REACTIVE PROTEIN QUANT 9.3 mg/dL (0-0.5); CALCIUM 7.9 mg/dL (8.4-11.0); CREATININE 1.78 mg/dL (0.55-1.30); TOTAL BILIRUBIN 0.4 mg/dL (0.0-1.0)
[2021-12-16 08:13] LABS: BASOPHILS # (AUTO) 0.2 K/uL (0.0-0.2); BASOPHILS % (AUTO) 0.7 % (0.0-2.0); EOSINOPHILS % (AUTO) 0.1 % (0.0-4.0); HEMATOCRIT 26.8 % (36-48); HEMOGLOBIN 8.2 g/dL (12.0-16.0); LYMPHOCYTES # (AUTO) 1.9 K/uL (1.0-5.5); LYMPHOCYTES % (AUTO) 6.3 % (20.5-51.5); MEAN CORPUSCULAR HEMOGLOBIN 29 pg (27-31); MEAN CORPUSCULAR HGB CONC 31 % (32-36); MEAN CORPUSCULAR VOLUME 96 fL (79.0-98.0); MONOCYTES # (AUTO) 0.7 K/uL (0.0-1.0); MONOCYTES % (AUTO) 2.2 % (1.7-9.3); NEUTROPHILS # (AUTO) 26.8 K/uL (1.8-7.7); NEUTROPHILS % (AUTO) 90.7 % (40.0-70.0); PLATELET COUNT (AUTO) 194 K/uL (130-430); RED BLOOD CELL COUNT(AUTO) 2.79 MIL/uL (4.2-6.2); RED CELL DISTRIBUTION WIDTH 21.4 % (9.0-15.0)
[2021-12-16] MEDS: 0.45% NACL 1,000 ML IV SCH ×2 (08:39→16:47)
[2021-12-16] MEDS: LINEZOLID 300 ML IV SCH ×2 (08:43→21:37)
[2021-12-16 09:01] LABS: POTASSIUM 2.8 mmol/L (3.5-5.1)
[2021-12-16] MEDS: DOCUSATE SODIUM 100 MG/10 ML UDC PO SCH (09:08)
[2021-12-16] MEDS: CHOLECALCIFEROL (VITAMIN D3) 5,000 UNIT TABLET PO SCH (09:09)
[2021-12-16] MEDS: METOPROLOL TARTRATE 25 MG TABLET PO SCH ×2 (09:09→21:37)
[2021-12-16] MEDS: ASCORBIC ACID 500 MG TABLET PO SCH ×2 (09:10→21:37)
[2021-12-16] MEDS: FUROSEMIDE 20 MG/2 ML VIAL IVP SCH (09:10)
[2021-12-16 10:44] LABS: WHITE BLOOD COUNT (AUTO) 29.6 K/uL (4.8-10.8)
[2021-12-16 12:05] LABS: ERYTHROCYTE SEDIMENTATION RATE 119 MM/HR (0-20)
[2021-12-16] MEDS: FLUCONAZOLE 200 mg/ NS 100 ML IV SCH (12:12)
[2021-12-16] MEDS: ENOXAPARIN SODIUM 80 MG/0.8 ML SYRINGE SUBCUT SCH ×2 (12:13→21:50)
[2021-12-16] MEDS: PROPOFOL DRIP 100 ML IV PRN (14:02)
--- NOTE | 2021-12-16 18:01 | NUR ---
PT. RESTING QUIETLY IN BED.NO CHANGES IN CONDITION NOTED.B/P STABLE. AFEBRILE.UPDATED FAMILY.NEEDS ARE BEING MET.
[2021-12-16] MEDS: MORPHINE 2 MG/ML INJ. SYRINGE IVP PRN (18:41)
[2021-12-16] MEDS: ACETAMINOPHEN 325 MG TABLET PO PRN (18:42)
[2021-12-16] MEDS: METOPROLOL TARTRATE 5 MG/5 ML AMPUL IVP PRN (19:52)
[2021-12-16] MEDS ORDERED: KCL 40 mEq in 100 mL (PREMIX) 100 ML IV ONE (20:00)
[2021-12-16] MEDS: QUEtiapine FUMARATE 25 MG TABLET PO SCH (21:37)
[2021-12-16] MEDS: SENNA 8.8 MG/5 ML UDC NG SCH (21:37)
[2021-12-16] MEDS: DEXAMETHASONE SOD PHOSPHATE 10 MG/ML VIAL IVP SCH (21:46)
[2021-12-17] VITALS (27 sets, daily range): BP systolic 94–137
--- NOTE | 2021-12-17 06:11 | NUR ---
Nutrition F/U Admitting Diagnosis: COVID, pneumonia Medical History Comment: COVID-19 per physician notes 11/19 notes: Sepsis, COPD Pt also found w/ sepsis per physician notes 12/16 notes: THERESE, Hepatic encephalopathy, PAF, S/P trach and PEG 12/05 SARS-CoV-2 Ag (Rapid) Positive 11/14, unvaccinated, Rapid 12/05 Positive. Subjective Information: Nutrition consult for high blood sugar received. Pt remains in iCU, on vent, RD bedside visit was deferred d/t COVID isolation precaution. Late note, pt was seen through glass door yesterday (12/16) EN and propofol were observed to be infusing. RD s/w tank charger in ICU who reported that BG spiked over the weekend, seems to be more controlled now. Per EMR review, BM 12/15 x3. Fred scale: 11, no edema noted. EN rate: 60ml (12/15); GRV: 0ml (12/15). Current EN regimen remains adequate and appropriate. Current Diet Order/Nutrition Support: Glucerna 1.2 at 60ml/hr (new goal rate); FWF 200ml Q6H via OGT x 9 days Pertinent Medications: propofol at 9.906 ml/hr (261 kcal/day), decadron, Lovenox, senna liquid, SSI, colace liquid, lasix, VIT D, VIT C, Zinc Pertinent Labs: 12/15 Na 169 H, K 3.1L, BG 227 H, BUN 90 H, Cre 1.73 H Height (Feet) 5 feet Height (Inches) 4.00 inches Weight (Pounds) 182 pounds -- stable since 11/16 Weight (Calculated Kilograms) 82.507455 kilograms Patient Weight 82.554 kg Body Mass Index 31.24 kg/m2 NEW Estimated Energy Expenditure (kcals/day) 2101 ([facility] 2009 d/t criticall illness on vent; Ve: 16.2; Tmax: 37.6'C) Estimated Protein Required (g/day) 83-110 (1.5-2 gm/kg IBW d/t obesity, sepsis) Estimated Fluid Required (l/day) 1.8 (1 ml/kcal/day for maintenance) Problem/Etiology/Signs/Symptoms Increased nutritional needs R/T metabolic demands AEB estimated nutritional requirements for sepsis. (*ongoing) Altered nutrition-related labs R/T compromised endocrine function AEB elevated BG/POC BG lab values. (*ongoing) Expected Outcomes/Goals - Monitor EN tolerance and intake w/ goal of pt meeting >80% of estimated nutritional needs, labs trending WNL, normal GI function, and skin integrity/wt maintenance Dietitian Recommendations * Continue: Glucerna 1.2 at 60ml/hr (new goal rate); FWF 200ml Q6H via GT Provides (w/ current propofol rate): 1989 kcal/day, 86 gm protein/day, and 1959 ml free water/day Meets: 95% of estimated caloric needs and 78% of upper end of estimated protein needs Follow Up High Risk: F/U in 2-3 days
--- NOTE | 2021-12-17 06:17 | NUR ---
Dietitian Recommendations * Continue: Glucerna 1.2 at 60ml/hr (new goal rate); FWF 200ml Q6H via GT Provides (w/ current propofol rate): 1989 kcal/day, 86 gm protein/day, and 1959 ml free water/day Meets: 95% of estimated caloric needs and 78% of upper end of estimated protein needs Please see Nutrition F/U note.
[2021-12-17] MEDS: 0.45% NACL 1,000 ML IV SCH ×3 (06:56→16:30)
[2021-12-17] MEDS: PIPERACILLIN/TAZO 2.25G/DEX-IS 50 ML IV SCH ×2 (06:56)
[2021-12-17] MEDS ORDERED: NOREPINEPHRINE BITARTRATE 16 MG in NS 218 ML IV PRN (07:30)
--- NOTE | 2021-12-17 07:33 | NUR ---
INITIAL SHIFT REPORT RECEIVED FROM NIGHT RN FOR CONTINUATION OF CARE
[2021-12-17] MEDS: ENOXAPARIN SODIUM 80 MG/0.8 ML SYRINGE SUBCUT SCH ×2 (09:00→20:51)
[2021-12-17] MEDS: METOPROLOL TARTRATE 25 MG TABLET PO SCH ×2 (09:00→20:45)
[2021-12-17] MEDS: LINEZOLID 300 ML IV SCH (09:04)
[2021-12-17] MEDS: MORPHINE 2 MG/ML INJ. SYRINGE IVP PRN ×2 (09:06→16:30)
[2021-12-17] MEDS: FUROSEMIDE 20 MG/2 ML VIAL IVP SCH (09:24)
[2021-12-17] MEDS: DOCUSATE SODIUM 100 MG/10 ML UDC PO SCH (09:24)
[2021-12-17] MEDS: CHOLECALCIFEROL (VITAMIN D3) 5,000 UNIT TABLET PO SCH (09:25)
[2021-12-17] MEDS: ASCORBIC ACID 500 MG TABLET PO SCH ×2 (10:12→20:44)
--- NOTE | 2021-12-17 11:35 | NUR ---
UPDATE Al Sayed assessed & ordered to increase Insulin drip at 5 U/hr (as pt bs/BG elevated). Order carried out & continue to monitor
[2021-12-17] MEDS: FLUCONAZOLE 200 mg/ NS 100 ML IV SCH ×2 (12:13→20:44)
--- NOTE | 2021-12-17 12:33 | NUR ---
EN formula modification RD received report for civil service clerk that Glucerna 1.2 is not available and back ordered. RD reviewed chart. Dietitian Recommendation: *Glucerna 1.5 at 50ml/hr (new goal rate), --if bolus:200ml Q4H; FWF 200ml Q6H via GT. Provides w/ propofol: 2061 kcal, 99gm protein and 1711ml fluids daily. Meets: 98% of estimated calorie needs and 90% of estimated protein needs. RD to follow per nutrition care standards. RETIREMENT, RD
[2021-12-17] MEDS: PROPOFOL DRIP 100 ML IV PRN ×3 (12:46→23:53)
[2021-12-17 12:50] LABS: CALCIUM 7.9 mg/dL (8.4-11.0); CREATININE 1.65 mg/dL (0.55-1.30); POTASSIUM 4.3 mmol/L (3.5-5.1)
[2021-12-17] MEDS: ACETAMINOPHEN 325 MG TABLET PO PRN (16:25)
[2021-12-17] MEDS ORDERED: DEXTROSE 50% JECT 50 ML DISP.SYRIN ONE (16:46)
[2021-12-17] MEDS ORDERED: NACL 0.9% 1,000 ML IV ONE (17:15)
--- NOTE | 2021-12-17 17:55 | NUR ---
INSULIN UPDATE BS CHECK WAS 178; NOTIFIED MD SHER SAYED. ORDERED TO LOWER INSULIN SETTING TO 5 U/HR. MD SHER SAYED ALSO REQUESTED THAT IF BS CHECK > 250 OR <150 PLEASE CALL
--- NOTE | 2021-12-17 19:36 | NUR ---
ENDORSEMENT END OF SHIFT REPORT GIVEN TO NIGHT RN FOR CONTINUATION OF CARE
[2021-12-17] MEDS: QUEtiapine FUMARATE 25 MG TABLET PO SCH (20:44)
[2021-12-17] MEDS: CEFTAZIDIME 1 GM in D5W 50 ML IV SCH (20:47)
[2021-12-17] MEDS: SENNA 8.8 MG/5 ML UDC NG SCH (20:49)
[2021-12-17] MEDS: DEXAMETHASONE SOD PHOSPHATE 10 MG/ML VIAL IVP SCH (20:51)
[2021-12-17] MEDS: INSULIN REGULAR, HUMAN 100 UNITS in NS 99 ML IV SCH ×4 (20:53→23:55)
[2021-12-17] MEDS: NOREPINEPHRINE BITARTRATE 16 MG in NS 234 ML IV PRN (21:15)
[2021-12-18] VITALS (29 sets, daily range): BP systolic 97–133
[2021-12-18] MEDS: 0.45% NACL 1,000 ML IV SCH ×4 (00:30→23:31)
[2021-12-18] MEDS: PROPOFOL DRIP 100 ML IV PRN (06:47)
--- NOTE | 2021-12-18 06:53 | NUR ---
2000: Received with Insulin drip at 4 unit per hour, Propofol at 30 mcg/kg/min and Levophed at 0.3 mcg/kg/min. Suctioned secretions. Turned to sides. Accucheck monitored and recorded. 0500: Morning care done. Changed wound dressings. 0600: Will endorse to next shift with Insulin drip at 4 unit per hour, Propofol at 30 mcg/kg/min and Levophed at 0.3 mcg/kg/min.
--- NOTE | 2021-12-18 07:15 | NUR ---
OPENING NOTE: RECEIVED PT FROM RN USING SBAR REPORTING. ALL CARE ASSUMED.
[2021-12-18 07:52] LABS: ALBUMIN 1.3 g/dL (3.4-4.8); CREATININE 1.34 mg/dL (0.55-1.30); POTASSIUM 3.5 mmol/L (3.5-5.1); TOTAL BILIRUBIN 0.4 mg/dL (0.0-1.0)
[2021-12-18 08:28] LABS: BASOPHILS # (AUTO) 0.2 K/uL (0.0-0.2); BASOPHILS % (AUTO) 0.7 % (0.0-2.0); EOSINOPHILS # (AUTO) 0.6 K/uL (0.0-0.4); EOSINOPHILS % (AUTO) 2.4 % (0.0-4.0); LYMPHOCYTES # (AUTO) 0.8 K/uL (1.0-5.5); LYMPHOCYTES % (AUTO) 2.9 % (20.5-51.5); MEAN CORPUSCULAR HEMOGLOBIN 30 pg (27-31); MEAN CORPUSCULAR HGB CONC 31 % (32-36); MEAN CORPUSCULAR VOLUME 97 fL (79.0-98.0); MONOCYTES # (AUTO) 0.3 K/uL (0.0-1.0); NEUTROPHILS # (AUTO) 24.2 K/uL (1.8-7.7); PLATELET COUNT (AUTO) 241 K/uL (130-430); RED BLOOD CELL COUNT(AUTO) 2.16 MIL/uL (4.2-6.2); RED CELL DISTRIBUTION WIDTH 22.8 % (9.0-15.0)
[2021-12-18] MEDS: ASCORBIC ACID 500 MG TABLET PO SCH ×2 (08:31→21:15)
[2021-12-18] MEDS: CHOLECALCIFEROL (VITAMIN D3) 5,000 UNIT TABLET PO SCH (08:31)
[2021-12-18] MEDS: DOCUSATE SODIUM 100 MG/10 ML UDC PO SCH (08:31)
[2021-12-18] MEDS: FUROSEMIDE 20 MG/2 ML VIAL IVP SCH (08:31)
[2021-12-18] MEDS: CEFTAZIDIME 1 GM in D5W 50 ML IV SCH ×2 (08:32→21:13)
[2021-12-18] MEDS: METOPROLOL TARTRATE 25 MG TABLET PO SCH ×2 (08:32→21:14)
[2021-12-18] MEDS: NOREPINEPHRINE BITARTRATE 16 MG in NS 234 ML IV PRN (08:34)
[2021-12-18] MEDS: ENOXAPARIN SODIUM 80 MG/0.8 ML SYRINGE SUBCUT SCH ×2 (08:37→21:16)
[2021-12-18 09:38] LABS: HEMOGLOBIN 6.6 g/dL (12.0-16.0)
--- NOTE | 2021-12-18 11:14 | NUR ---
SPOKE WITH DAUGHTER: UPDATED DAUGHTER ON PTS STATUS. ALL QUESTIONS ANSWERED. DAUGHTER REQUESTING TO TALK TO A DR ON UPDATE OF PTS STATUS AND OUTLOOK.
[2021-12-18] MEDS ORDERED: SODIUM BICARBONATE 8.4% JECT 50 MEQ/50 ML SYRINGE IVP ONE (13:45)
[2021-12-18] MEDS: FLUCONAZOLE 200 mg/ NS 100 ML IV SCH (14:13)
[2021-12-18] MEDS: SENNA 8.8 MG/5 ML UDC NG SCH (21:14)
[2021-12-18] MEDS: QUEtiapine FUMARATE 25 MG TABLET PO SCH (21:14)
[2021-12-18] MEDS: DEXAMETHASONE SOD PHOSPHATE 10 MG/ML VIAL IVP SCH (21:16)
[2021-12-18] MEDS: INSULIN REGULAR, HUMAN 100 UNITS in NS 99 ML IV SCH ×2 (23:33)
[2021-12-19] VITALS (34 sets, daily range): BP systolic 91–135
[2021-12-19] MEDS ORDERED: NOREPINEPHRINE 4 MG/4 ML VIAL IV ONE (04:01)
[2021-12-19] MEDS: NOREPINEPHRINE BITARTRATE 16 MG in NS 234 ML IV PRN (04:08)
[2021-12-19] MEDS: PROPOFOL DRIP 100 ML IV PRN ×2 (06:38→20:50)
[2021-12-19] MEDS: 0.45% NACL 1,000 ML IV SCH ×3 (06:59→23:16)
--- NOTE | 2021-12-19 08:00 | NUR ---
S/B DR LOUISE AWARE OF BSL <150MG/DL ADVISED NOT TO STOP INSULIN DRIP TITTRATE TO 2 UNITS WHEN TF STOP CONT Q2H ACCUCHECKED TO CALL HIM IF BSL DROP<100
[2021-12-19] MEDS: CEFTAZIDIME 1 GM in D5W 50 ML IV SCH ×2 (08:17→20:52)
[2021-12-19] MEDS: DOCUSATE SODIUM 100 MG/10 ML UDC PO SCH (08:18)
[2021-12-19] MEDS: ENOXAPARIN SODIUM 80 MG/0.8 ML SYRINGE SUBCUT SCH ×2 (08:18→20:57)
[2021-12-19] MEDS: ASCORBIC ACID 500 MG TABLET PO SCH ×2 (08:18→20:56)
[2021-12-19] MEDS: CHOLECALCIFEROL (VITAMIN D3) 5,000 UNIT TABLET PO SCH (08:18)
[2021-12-19] MEDS: FUROSEMIDE 20 MG/2 ML VIAL IVP SCH (08:19)
[2021-12-19] MEDS: METOPROLOL TARTRATE 25 MG TABLET PO SCH ×2 (08:19→20:55)
[2021-12-19] MEDS: FLUCONAZOLE 200 mg/ NS 100 ML IV SCH (12:15)
[2021-12-19] MEDS: ACETAMINOPHEN 325 MG TABLET PO PRN (14:33)
--- NOTE | 2021-12-19 15:44 | NUR ---
RT NOTES Assisted Rn with tracheostomy care, Rn notified wound care about stoma appearing big and raw.
--- NOTE | 2021-12-19 18:00 | NUR ---
PT NOTED WITH SECRETIONS FROM AROUND TRACH. NO REDNESS OR DRAINAGE NOTED. DR ARCE MADE AWARE AND ORDERED CHEST XRAY. DR ROTHMAN MADE AWARE AND SCHEDULED BRONCHOSCOPY ON AM.
--- NOTE | 2021-12-19 18:00 | NUR ---
FAMILY: SON UPDATED AT BEDSIDE. ALL QUESTIONS ANSWERED.
[2021-12-19] MEDS: DEXAMETHASONE SOD PHOSPHATE 10 MG/ML VIAL IVP SCH (20:53)
[2021-12-19] MEDS: SENNA 8.8 MG/5 ML UDC NG SCH (20:54)
[2021-12-19] MEDS: QUEtiapine FUMARATE 25 MG TABLET PO SCH (20:55)
[2021-12-19] MEDS: INSULIN REGULAR, HUMAN 100 UNITS in NS 99 ML IV SCH ×2 (23:19)
[2021-12-20] VITALS (31 sets, daily range): BP systolic 91–119
[2021-12-20 06:20] LABS: BASOPHILS % (AUTO) 0.1 % (0.0-2.0); EOSINOPHILS # (AUTO) 0.1 K/uL (0.0-0.4); EOSINOPHILS % (AUTO) 0.7 % (0.0-4.0); LYMPHOCYTES # (AUTO) 0.5 K/uL (1.0-5.5); LYMPHOCYTES % (AUTO) 4.2 % (20.5-51.5); MEAN CORPUSCULAR HEMOGLOBIN 30 pg (27-31); MEAN CORPUSCULAR HGB CONC 32 % (32-36); MEAN CORPUSCULAR VOLUME 95 fL (79.0-98.0); MONOCYTES # (AUTO) 0.3 K/uL (0.0-1.0); MONOCYTES % (AUTO) 2.8 % (1.7-9.3); NEUTROPHILS # (AUTO) 11.1 K/uL (1.8-7.7); NEUTROPHILS % (AUTO) 92.2 % (40.0-70.0); PLATELET COUNT (AUTO) 132 K/uL (130-430); RED BLOOD CELL COUNT(AUTO) 2.24 MIL/uL (4.2-6.2); RED CELL DISTRIBUTION WIDTH 18.4 % (9.0-15.0)
--- NOTE | 2021-12-20 06:24 | NUR ---
2296 called HCP to follow up for transport no avail left a messaged to tel #[phone] 2029 called [facility] spoke to warehouse laborer advised no transport avail as per case management of patient insurance.
--- NOTE | 2021-12-20 06:32 | NUR ---
ALL CARES DONE, REMAINS ON LEVOPHED AT 0.08MCG PROPOFOL AT 20MCG AND INSULIN DRIP AT 2 UNITS. KEPT NPO AFTER MIDNIGHT FOR BRONCOSCOPY IN AM NO CONSENT YET FOR DR ROTHMAN TO INFORMED CONSENT THE FAMILY. REMAINS ON PC MODE AT 30% WITH HIGH PRESSURE. TRACHE STOMA LOOKING QUITE BEYOND NORMAL SIZE SECRETIONS LARGE OVERFLOWING AT TRACHE SITE. DRESSING CHANGED COUPLE OF TIMES.
[2021-12-20 06:43] LABS: ALBUMIN 1.1 g/dL (3.4-4.8); CALCIUM 7.5 mg/dL (8.4-11.0); CREATININE 1.02 mg/dL (0.55-1.30); POTASSIUM 3.2 mmol/L (3.5-5.1); TOTAL BILIRUBIN 0.2 mg/dL (0.0-1.0)
[2021-12-20 08:26] LABS: HEMATOCRIT 21.4 % (36-48); HEMOGLOBIN 6.8 g/dL (12.0-16.0)
--- NOTE | 2021-12-20 08:30 | NUR ---
NN - RECEIVED CRITICAL HGB OF 6.8 AND HCT OF 21.[address] CONNIE ANDRADE AT 0838
--- NOTE | 2021-12-20 08:40 | NUR ---
NN - DR. SHER-SAYED PAGED REGARDING BLOOD SUGAR OF 139. ORDERS RECEIVED TO CHANGE INSULIN DRIP.
[2021-12-20] MEDS: 0.45% NACL 1,000 ML IV SCH ×2 (08:51→16:24)
--- NOTE | 2021-12-20 09:16 | NUR ---
NN - PAGED DR. CONNIE DICKERSON FOR CRITICAL LABS.
--- NOTE | 2021-12-20 09:20 | NUR ---
NN - DR. ROSALES CALLED BACK AND ORDERS WERE RECEIVED.
--- NOTE | 2021-12-20 09:26 | NUR ---
NN - PER DR. ROTHMAN, HE WILL NOT DUE BRONCH BECAUSE HE DOES NOT THINK THAT THE PATIENT NEEDS IT. TUBE FEEDING RESTARTED PER ORDERS.
[2021-12-20] MEDS: DOCUSATE SODIUM 100 MG/10 ML UDC PO SCH (10:02)
[2021-12-20] MEDS: FUROSEMIDE 20 MG/2 ML VIAL IVP SCH (10:03)
[2021-12-20] MEDS: METOPROLOL TARTRATE 25 MG TABLET PO SCH ×2 (10:03→20:30)
[2021-12-20] MEDS: CHOLECALCIFEROL (VITAMIN D3) 5,000 UNIT TABLET PO SCH (10:04)
[2021-12-20] MEDS: ASCORBIC ACID 500 MG TABLET PO SCH ×2 (10:04→20:31)
[2021-12-20] MEDS: CEFTAZIDIME 1 GM in D5W 50 ML IV SCH ×2 (10:08→20:29)
[2021-12-20] MEDS: NOREPINEPHRINE BITARTRATE 16 MG in NS 234 ML IV PRN (10:09)
[2021-12-20 16:42] LABS: BASOPHILS % (AUTO) 0.2 % (0.0-2.0); EOSINOPHILS # (AUTO) 0.1 K/uL (0.0-0.4); HEMATOCRIT 25.8 % (36-48); HEMOGLOBIN 8.5 g/dL (12.0-16.0); LYMPHOCYTES # (AUTO) 0.6 K/uL (1.0-5.5); LYMPHOCYTES % (AUTO) 5.4 % (20.5-51.5); MEAN CORPUSCULAR HEMOGLOBIN 31 pg (27-31); MEAN CORPUSCULAR HGB CONC 33 % (32-36); MEAN CORPUSCULAR VOLUME 94 fL (79.0-98.0); MONOCYTES # (AUTO) 0.3 K/uL (0.0-1.0); NEUTROPHILS # (AUTO) 9.6 K/uL (1.8-7.7); NEUTROPHILS % (AUTO) 90.4 % (40.0-70.0); PLATELET COUNT (AUTO) 121 K/uL (130-430); RED BLOOD CELL COUNT(AUTO) 2.74 MIL/uL (4.2-6.2); RED CELL DISTRIBUTION WIDTH 18.1 % (9.0-15.0); WHITE BLOOD COUNT (AUTO) 10.6 K/uL (4.8-10.8)
--- NOTE | 2021-12-20 18:30 | NUR ---
NN - RECEIVED A CALL FROM THE MANAGER INFRASTRUCTURE WITH THE INSURANCE. PATIENT HAS A BED AT [facility] IN [place]. ICU BED B. THE NUMBER TO CALL REPORT IS [phone]. ADDRESS IS [facility]. [address] [place] [address]. ED NUMBER IS [phone].
--- NOTE | 2021-12-20 19:45 | NUR ---
NN - SPOKE WITH DAUGHTER AT BEDSIDE TO NOTIFY HER OF PLANS TO POSSIBLY TRANSPORT TO ED [facility] IF TRANSPORT CAN BE ARRANGED. NOC SHIFT RN NOTIFIED. SPOKE EXTENSIVELY WITH DAUGHTER REGARDING HER MOTHERS CARE AND HER CONCERNS ABOUT NOT HEARING FROM THE PHYSICIAN. EXPLAINED TO HER EVERYTHING THAT I HAD DONE TODAY FOR THE PATIENT INCLUDING BEING ABLE TO TITRATE OFF THE LEVOPHED AND PROPOFOL. ALL OF HER QUESTIONS WERE ANSWERED. CARE ENDORSED TO NOC SHIFT RN.
--- NOTE | 2021-12-20 19:50 | NUR ---
SPOKE TO DR SHER SAYED INFORMED HIM PATIENTS IS GOING TO ED FOR TA CARE ADVISED TO D/C INSULIN DRIP AND PUT ON SLIDING SCALE AND LONG ACTING INSULIN AND ACCUCHECK Q6H
[2021-12-20] MEDS ORDERED: INSULIN GLARGINE 100 UNITS/ML 10 ML VIAL SUBCUT SCH (20:00)
[2021-12-20] MEDS: SENNA 8.8 MG/5 ML UDC NG SCH (20:29)
[2021-12-20] MEDS: DEXAMETHASONE SOD PHOSPHATE 10 MG/ML VIAL IVP SCH (20:29)
[2021-12-20] MEDS: QUEtiapine FUMARATE 25 MG TABLET PO SCH (20:31)
[2021-12-20] MEDS: INSULIN GLARGINE 100 UNITS/ML 10 ML VIAL SUBCUT SCH (21:57)
[2021-12-21] VITALS (24 sets, daily range): BP systolic 97–145
[2021-12-21] MEDS: INSULIN REGULAR, HUMAN 100 UNITS/ML, 10 ML VIAL (humuLIN R) SUBCUT PRN ×2 (00:17→06:23)
[2021-12-21] MEDS: 0.45% NACL 1,000 ML IV SCH ×2 (00:18→08:56)
[2021-12-21] MEDS: NOREPINEPHRINE BITARTRATE 16 MG in NS 234 ML IV PRN (01:12)
--- NOTE | 2021-12-21 06:29 | NUR ---
ALL CARES DONE VSS OFF LEVOPHED, TOLERATING TUBE FEEDING AFEBRILE. CHG BATH DONE AND LINEN CHANGED. 0630 GOT A CALL FROM FELIPE MCDONALD PATIENTS INSURANCE ADVISED THAT TRANSPORT IS NOT AVAIL LAST NIGHT AND SHE WILL CONTACT THERE SENIOR TRAINING SPECIALIST AND WILL ARRANGED TRASPORT IN AM AND THEY WILL CALL US BACK.
[2021-12-21] MEDS: CEFTAZIDIME 1 GM in D5W 50 ML IV SCH (08:56)
[2021-12-21] MEDS: DOCUSATE SODIUM 100 MG/10 ML UDC PO SCH (08:56)
[2021-12-21] MEDS: CHOLECALCIFEROL (VITAMIN D3) 5,000 UNIT TABLET PO SCH (08:58)
[2021-12-21] MEDS: METOPROLOL TARTRATE 25 MG TABLET PO SCH (08:58)
[2021-12-21] MEDS: FUROSEMIDE 20 MG/2 ML VIAL IVP SCH (08:59)
[2021-12-21] MEDS: ASCORBIC ACID 500 MG TABLET PO SCH (08:59)
[2021-12-21] MEDS: INSULIN GLARGINE 100 UNITS/ML 10 ML VIAL SUBCUT SCH (09:04)
--- NOTE | 2021-12-21 09:54 | NUR ---
Nutrition F/U Admitting Diagnosis: COVID, pneumonia Medical History Comment: COVID-19 per physician notes 11/19 notes: Sepsis, COPD Pt also found w/ sepsis per physician notes 12/16 notes: THERESE, Hepatic encephalopathy, PAF, S/P trach and PEG 12/05 SARS-CoV-2 Ag (Rapid) Positive 11/14 & 12/05, unvaccinated Subjective Information: Late note from 12/20 d/t high RD load. RD rounded to ICU yesterday and spoke w/ pt's primary RN outside of pt's room. She reported that pt had been NPO yesterday morning d/t planned bronchoscopy, however, the procedure was cancelled, and TF was resumed. She stated pt is now off propofol and levophed, and flexiseal still present. Per EMR review, TF Rate: 50 ml 12/21; GRV: 0 ml 12/21; TF Intakes: 400 ml 12/21; abd is soft and non-distended w/ active bowel sounds; stool output: 300 ml 12/21; Fred: 11 w/ DTIs noted to L/R buttocks. Pt may benefit from inclusion of wound healing modular to promote skin integrity. Current Diet Order/Nutrition Support: Glucerna 1.5 at 50 ml/hr (new goal rate); if bolus: 200ml Q4h, Free Water Flush: 200 ml Q6h via GT x4 days Pertinent Medications: lantus, SSI, decadron, morphine, senna, lasix, colace, VIT D3, VIT C, zinc Pertinent Labs: WBC 10.6 WNL, Na 146 H, K 3.2 L, BG 169 H, BUN 41 H, CRE 1.02 WNL Height (Feet) 5 feet Height (Inches) 4.00 inches Weight (Pounds) 182 pounds -- stable since 11/16 Weight (Calculated Kilograms) 82.431696 kilograms Patient Weight 82.554 kg Body Mass Index 31.24 kg/m2 (obesity class I) Estimated Energy Expenditure (kcals/day) 2100 ([facility] 2009 d/t criticall illness on vent; Ve: 16.2; Tmax: 37.6'C) Estimated Protein Required (g/day) 83-110 (1.5-2 gm/kg IBW d/t obesity, sepsis) Estimated Fluid Required (l/day) 1.8 (1 ml/kcal/day for maintenance) Problem/Etiology/Signs/Symptoms Increased nutritional needs R/T metabolic demands AEB estimated nutritional requirements for sepsis. (*ongoing) Altered nutrition-related labs R/T compromised endocrine function AEB elevated BG/POC BG lab values. (*ongoing, seemingly improving) Expected Outcomes/Goals - Monitor EN tolerance and intake w/ goal of pt meeting >80% of estimated nutritional needs, labs trending WNL, normal GI function, and skin integrity/wt maintenance Dietitian Recommendations * Continue Glucerna 1.5 at 50 ml/hr (new goal rate); if bolus: 200ml Q4h, Arsenio BID Free Water Flush: 200 ml Q6h via GT Provides: 1980 kcal/day, 104 gm protein/day, and 1711 ml free water/day Meets: 94% of estimated caloric needs and 95% of upper end of estimated protein needs Follow Up High Risk: F/U in 2-3 days
--- NOTE | 2021-12-21 10:00 | NUR ---
FAMILY - SPOKE WITH DAUGHTER ZAHRA AND NOTIFIED HER OF PLAN TO TRANSFER PATIENT LATER TODAY BETWEEN [id number]. UPDATED HER ON PATIENT CARE FOR TODAY.
--- NOTE | 2021-12-21 10:02 | NUR ---
Dietitian Recommendations * Continue Glucerna 1.5 at 50 ml/hr (new goal rate); if bolus: 200ml Q4h, Arsenio BID Free Water Flush: 200 ml Q6h via GT Provides: 1980 kcal/day, 104 gm protein/day, and 1711 ml free water/day Meets: 94% of estimated caloric needs and 95% of upper end of estimated protein needs LP, RD Please refer to Nutrition Assessment for details.
--- NOTE | 2021-12-21 10:12 | NUR ---
patient dc/transferring to [facility] ICU bed [address] [place] [address] report to [phone] [facility] ambulance will diamond picker 3:00-3:30PM 12/21/21 [phone] TRK# [id number] called and confirmed with [facility] bed still available Called and spoke with Yandy patient nurse informed her of time of diamond picker
--- NOTE | 2021-12-21 10:15 | NUR ---
VENT SETTINGS CHANGED TO AC20, VT 400ML PER MD ROTHMAN. SPO2 97%, HR 95. PT TOLERATING WELL. ABG FOLLOWS 1 HOUR.
[2021-12-21 11:26] LABS: BASOPHILS # (AUTO) 0.1 K/uL (0.0-0.2); BASOPHILS % (AUTO) 0.5 % (0.0-2.0); EOSINOPHILS # (AUTO) 0.1 K/uL (0.0-0.4); EOSINOPHILS % (AUTO) 0.8 % (0.0-4.0); HEMATOCRIT 27.6 % (36-48); LYMPHOCYTES # (AUTO) 0.9 K/uL (1.0-5.5); LYMPHOCYTES % (AUTO) 8.3 % (20.5-51.5); MEAN CORPUSCULAR HEMOGLOBIN 31 pg (27-31); MEAN CORPUSCULAR HGB CONC 33 % (32-36); MEAN CORPUSCULAR VOLUME 94 fL (79.0-98.0); MONOCYTES # (AUTO) 0.3 K/uL (0.0-1.0); MONOCYTES % (AUTO) 3.1 % (1.7-9.3); NEUTROPHILS # (AUTO) 9.5 K/uL (1.8-7.7); NEUTROPHILS % (AUTO) 87.3 % (40.0-70.0); PLATELET COUNT (AUTO) 148 K/uL (130-430); RED BLOOD CELL COUNT(AUTO) 2.94 MIL/uL (4.2-6.2); RED CELL DISTRIBUTION WIDTH 18.4 % (9.0-15.0); WHITE BLOOD COUNT (AUTO) 10.9 K/uL (4.8-10.8)
--- NOTE | 2021-12-21 12:20 | NUR ---
CHANGED VENT SETTINGS TO AC24, VT450 PER MD ROTHMAN. VENT SETTINGS ORDERED BY PHONE WHEN REPORTED ABG RESULTS, PT ON VENT SETTINGS AC20, VT400, PEEP +5, FIO2 30% CHANGED BY MD ROTHMAN. Addendum: 12/21/21 at 1338 by Gina Burgess RT CHANGED VENT SETTINGS TO AC24, VT450 PER MD ROTHMAN. VENT SETTINGS ORDERED BY PHONE WHEN REPORTED ABG RESULTS, PT ON VENT SETTINGS AC20, VT400, PEEP +5, FIO2 30%
--- NOTE | 2021-12-21 13:34 | NUR ---
CHANGED BACK TO PREVIOUS VENT SETTINGS PC24, F20 PER LORNA. PATIENT SEEMS TO TOLERATE BETTER ON PC. PATIENT BECAME TACHYPNEIC, SPONTANEOUS RR 40'S WHEN PATIENT ON VC.
--- NOTE | 2021-12-21 15:43 | NUR ---
NN - REPORT GIVEN TO LINDSEY SALAS AT [facility].
--- NOTE | 2021-12-21 16:00 | NUR ---
NN - PATIENT LEFT WITH RT AND 2 HAUNTED HISTORY TOUR GUIDE TO ED. REPORT ALREADY GIVEN TO LINDSEY SALAS. ZAHRA DAUGHTER CALLED AND NOTIFIED OF TRANSFER.
== END 2021-12-21 16:00 | DRG 4 ==
LOC: SED 16:23 → STU 19:41 → SIC 21:50
PROVIDERS: ADMIT Internal Medicine Hospice and Palliative Medicine; ATTEND Internal Medicine Hospice and Palliative Medicine
PROC: 5A0935A Assistance with Respiratory Ventilation, Less than 24 Consecutive Hours, High Flow/Velocity Cannula (ICD-10-PCS; 2021-11-14)
PROC: 5A1955Z Respiratory Ventilation, Greater than 96 Consecutive Hours (ICD-10-PCS; principal; 2021-11-15)
PROC: 5A09357 Assistance with Respiratory Ventilation, Less than 24 Consecutive Hours, Continuous Positive Airway Pressure (ICD-10-PCS; 2021-11-15)
PROC: XW033H5 Introduction of Tocilizumab into Peripheral Vein, Percutaneous Approach, New Technology Group 5 (ICD-10-PCS; 2021-11-15)
PROC: 0BH17EZ Insertion of Endotracheal Airway into Trachea, Via Natural or Artificial Opening (ICD-10-PCS; 2021-11-15)
PROC: XW033E5 Introduction of Remdesivir Anti-infective into Peripheral Vein, Percutaneous Approach, New Technology Group 5 (ICD-10-PCS; 2021-11-16)
PROC: 05H333Z Insertion of Infusion Device into Right Innominate Vein, Percutaneous Approach (ICD-10-PCS; 2021-11-17)
PROC: B54MZZA Ultrasonography of Right Upper Extremity Veins, Guidance (ICD-10-PCS; 2021-11-17)
PROC: 30243N1 Transfusion of Nonautologous Red Blood Cells into Central Vein, Percutaneous Approach (ICD-10-PCS; 2021-11-17)
PROC: 0D9670Z Drainage of Stomach with Drainage Device, Via Natural or Artificial Opening (ICD-10-PCS; 2021-11-17)
PROC: 0DH63UZ Insertion of Feeding Device into Stomach, Percutaneous Approach (ICD-10-PCS; 2021-12-05)
PROC: 0B110F4 Bypass Trachea to Cutaneous with Tracheostomy Device, Open Approach (ICD-10-PCS; 2021-12-05 16:00)
PROC: 30233N1 Transfusion of Nonautologous Red Blood Cells into Peripheral Vein, Percutaneous Approach (ICD-10-PCS; 2021-12-18)
DX: A41.9 Sepsis, unspecified organism (principal); U07.1 COVID-19; J12.82 Pneumonia due to coronavirus disease 2019; E43 Unspecified severe protein-calorie malnutrition; G93.41 Metabolic encephalopathy; J15.6 Pneumonia due to other Gram-negative bacteria; J80 Acute respiratory distress syndrome; R65.21 Severe sepsis with septic shock; E87.0 Hyperosmolality and hypernatremia; J44.0 Chronic obstructive pulmonary disease with (acute) lower respiratory infection; N17.9 Acute kidney failure, unspecified; Z99.11 Dependence on respirator [ventilator] status; Z68.31 Body mass index [BMI] 31.0-31.9, adult; E11.22 Type 2 diabetes mellitus with diabetic chronic kidney disease; E11.65 Type 2 diabetes mellitus with hyperglycemia; E05.90 Thyrotoxicosis, unspecified without thyrotoxic crisis or storm; E66.9 Obesity, unspecified; E83.42 Hypomagnesemia; E83.52 Hypercalcemia; I48.0 Paroxysmal atrial fibrillation; E87.6 Hypokalemia; E88.09 Other disorders of plasma-protein metabolism, not elsewhere classified; G89.4 Chronic pain syndrome; K72.90 Hepatic failure, unspecified without coma; N18.9 Chronic kidney disease, unspecified; R13.10 Dysphagia, unspecified; Z79.01 Long term (current) use of anticoagulants; Z79.4 Long term (current) use of insulin; Z87.891 Personal history of nicotine dependence; Z79.899 Other long term (current) drug therapy; Z88.8 Allergy status to other drugs, medicaments and biological substances
CPT/HCPCS: 36415; 36600; 43760; 70450-TC; 71045; 76376; 80048; 80053; 82550; 82553; 82728; 82803-TC; 82962; 83605; 83735; 83880; 84443; 85007; 85025; 85027; 85379; 85610-TC; 85651-TC; 85730-TC; 86140; 86886; 86900; 86901; 86920; 87040; 87070-TC; 87081; 87101; 87205-TC; 93005; 94002; 94003; 94640; 94760; 95816; 96365; 96367; 96372; 96375; 99285; J0282; J0330; J0456; J0696; J0713; J1100; J1265; J1450; J1630; J1644; J1650; J1815; J1940; J2001; J2020; J2060; J2248; J2250; J2270; J2405; J2543; J2704; J3262; J3480; J3490; J7050; J7060; J7120; J7612; P9021